=== PATIENT | female | born 1960 | race Caucasian/White ===

== ENCOUNTER 2016-05-23 01:52 | Emergency (ER) | payer BC ==
[2016-05-23] MEDS ORDERED: IBUPROFEN 400 MG TAB PO STA (02:15)
[2016-05-23] MEDS ORDERED: IPRATROPIUM-ALBUTEROL 3 ML NEB INHALATION STA ×3 (02:15→05:03)
--- NOTE | 2016-05-23 02:23 | ED ---
General Adult HPI - General Chief complaint: Fever Stated complaint: fever Time Seen by Provider: 05/23/16 02:06 Source: patient, RN notes reviewed Mode of arrival: wheelchair Limitations: no limitations - History of Present Illness Initial comments: This is a 55-year-old female who presents with diagnosed pneumonia yesterday. Patient states she has had 1 dose of Levaquin so far. Patient states she presents today due to increased fever. Patient has only been taking Tylenol for this. Patient also admits to some increasing shortness of breath. Patient has a history of asthma. Patient has been taking albuterol treatments at home the last one was around 11 PM. Patient had a shot of Depo-Medrol yesterday. Patient states she had a chest x-ray done yesterday at Dr. Alvares's office. Patient states her cough has mostly been dry. Patient also admits to some mild congestion and a mild headache. Patient denies tobacco use. Patient has never been a smoker. Patient denies any sore throat, otalgia, nausea/vomiting/ diarrhea.Patient denies any recent chest pain, abdominal pain, back pain, numbness, tingling, hematuria, or visual changes, or any other complaints. - Related Data Home Medications Medication Instructions Recorded Confirmed Aspirin 81 mg PO DAILY 07/01/14 05/23/16 Beclomethasone Dipropionate [Qvar 1 appful INHALATION BID 07/01/14 05/23/16 80 mcg/puff] Citalopram Hydrobromide 40 mg PO HS 07/01/14 05/23/16 [Citalopram HBr] Hydrochlorothiazide 25 mg PO QAM 07/01/14 05/23/16 Ipratropium/Albuterol Sulfate 2 puff INHALATION DIRECTED PRN 07/01/14 [Combivent Respimat Inhaler] OLANZapine [Olanzapine] 10 mg PO HS 07/01/14 05/23/16 Pravastatin Sodium [Pravastatin 20 mg PO DAILY 07/01/14 05/23/16 Sodium] Allergies Allergy/AdvReac Type Severity Reaction Status Date / Time No Known Allergies Allergy Verified 05/23/16 02:01 Review of Systems ROS Statement: Those systems with pertinent positive or pertinent negative responses have been documented in the HPI. ROS Other: All systems not noted in ROS Statement are negative. Past Medical History Past Medical History: Asthma, Cancer, Hyperlipidemia, Hypertension Additional Past Medical History / Comment(s): RIGHT BREAST AND MOUTH CA, RADIATION BREAST, UMBILICAL HERNIA History of Any Multi-Drug Resistant Organisms: None Reported Past Surgical History: Breast Surgery, Hysterectomy Additional Past Surgical History / Comment(s): RIGHT BREAST LUMPECTOMY Past Anesthesia/Blood Transfusion Reactions: No Reported Reaction Past Psychological History: Depression, Schizophrenia Smoking Status: Never smoker Past Alcohol Use History: Occasional Past Drug Use History: None Reported - Past Family History Father Family Medical History: Cancer Additional Family Medical History / Comment(s): COLON, ESOPHAGEAL General Exam - General Exam Comments Initial Comments: General: The patient is awake and alert, in no distress, and does not appear acutely ill. Eye: Pupils are equal, round and reactive to light, extra-ocular movements are intact. No nystagmus. There is normal conjunctiva bilaterally. No signs of icterus. Ears: TMs pink and pearly with intact cone of light bilaterally. Normal external ear canals Nose: Nasal turbinates pink and moist Mouth and throat: There are moist mucous membranes and no oral lesions. Neck: The neck is supple, there is no tenderness or JVD. Cardiovascular: There is a regular rate and rhythm. No murmur, rub or gallop is appreciated. Respiratory: Lungs with wheezing present throughout and some scattered rhonchi , respirations are non-labored, breath sounds are equal. No stridor, rales. Gastrointestinal: Soft, non-distended, non-tender abdomen without masses or organomegaly noted. There is no rebound or guarding present. Bowel sounds are unremarkable. Musculoskeletal: Normal ROM, no tenderness. Strength 5/5. Sensation intact. radial Pulses equal bilaterally 2+. Neurological: A&O x 3. CN II-XII intact, There are no obvious motor or sensory deficits. Coordination appears grossly intact. Speech is normal. Skin: Skin is warm and dry and no rashes or lesions are noted. Psychiatric: Cooperative, appropriate mood & affect, normal judgment. Limitations: no limitations Course Vital Signs 05/23/16 05/23/16 05/23/16 01:59 02:15 02:30 Temperature 101.7 F H 102 F H Pulse Rate 104 H 94 Respiratory 20 Rate Blood Pressure 141/67 O2 Sat by Pulse 95 Oximetry 05/23/16 05/23/16 05/23/16 02:37 03:10 04:36 Temperature 98.8 F 97.8 F Pulse Rate 94 95 82 Respiratory 18 20 Rate Blood Pressure 145/63 117/55 O2 Sat by Pulse 95 95 Oximetry Medical Decision Making - Medical Decision Making This is a 55-year-old female diagnosed pneumonia. Patient complains increasing shortness breath and fever. On physical exam patient has a fever in the EC. Lungs with wheezing present throughout and some scattered rhonchi, respirations are non-labored, breath sounds are equal. No stridor, rales. Patient was given a DuoNeb treatment in the EC today. A chest x-ray was done and reviewed showing: Patchy infiltrates in the lower lung wilson. Report read by Dr. Fregoso. Patient was feeling relief after her DuoNeb treatment. Patient was given a dose of prednisone in the EC. Patient states she has a prescription for prednisone that she has not started yet. Patient received a second DuoNeb treatment in the EC today before discharge. Patient's oxygen saturation increased on room air and patient states she was feeling much better and she was ready for discharge home. I discussed the importance of finishing her entire course of antibiotics and that she start her oral prednisone given to her by her doctor. Patient is afebrile at time of discharge. I discussed return parameters and continuation of Tylenol and Motrin for fever. I discussed continuation of nebulizer treatments every 4 hours.Discussed that patient should follow up with PCP in one to 2 days or return to the EC for any worsening symptoms or for any further concerns. Patient was receptive to this plan and patient will be discharged home. I discussed this case with attending physician Dr. Stuart who agrees the plan as stated above. - Lab Data Result diagrams: 05/23/16 03:10 05/23/16 03:10 Lab Results 05/23/16 05/23/16 05/23/16 Range/Units 03:10 03:10 03:10 WBC 9.5 (3.8-10.6) k/uL RBC 4.11 (3.80-5.40) m/uL Hgb 12.8 (11.4-16.0) gm/dL Hct 37.3 (34.0-46.0) % MCV 90.7 (80.0-100.0) fL MCH 31.2 (25.0-35.0) pg MCHC 34.4 (31.0-37.0) g/dL RDW 13.1 (11.5-15.5) % Plt Count 175 (150-450) k/uL Neutrophils % 84 % Lymphocytes % 6 % Monocytes % 6 % Eosinophils % 1 % Basophils % 1 % Neutrophils # 7.9 H (1.3-7.7) k/uL Lymphocytes # 0.6 L (1.0-4.8) k/uL Monocytes # 0.6 (0-1.0) k/uL Eosinophils # 0.1 (0-0.7) k/uL Basophils # 0.1 (0-0.2) k/uL Sodium 138 (137-145) mmol/L Potassium 3.5 (3.5-5.1) mmol/L Chloride 102 (98-107) mmol/L Carbon Dioxide 22 (22-30) mmol/L Anion Gap 14 mmol/L BUN 12 (7-17) mg/dL Creatinine 0.80 (0.52-1.04) mg/dL Est GFR (MDRD) Af Amer >60 (>60 ml/min/1.73 sqM) Est GFR (MDRD) Non-Af >60 (>60 ml/min/1.73 sqM) Glucose 175 H (74-99) mg/dL Plasma Lactic Acid Alex 1.5 (0.7-2.0) mmol/L Calcium 9.7 (8.4-10.2) mg/dL Total Bilirubin 0.7 (0.2-1.3) mg/dL AST 87 H (14-36) U/L ALT 99 H (9-52) U/L Alkaline Phosphatase 93 (38-126) U/L Total Protein 7.3 (6.3-8.2) g/dL Albumin 4.4 (3.5-5.0) g/dL Disposition Clinical Impression: Pneumonia Disposition: HOME SELF-CARE Condition: Good Instructions: Community Acquired Pneumonia (ED) Additional Instructions: Please finish her entire course of antibiotics. Please finish her entire course of steroids. Please continued nebulizer treatments every 4 hours. Please continue Tylenol and Motrin for fever. Please return to the EC for any worsening symptoms or for any further concerns. Please follow-up with her primary care physician tomorrow. Referrals: Aguilar Andrew DO [Primary Care Provider] - 1-2 days Time of Disposition: 04:55
[2016-05-23] MEDS ORDERED: SODIUM CHLORIDE 0.9% 500 ML IV ONE (02:57)
[2016-05-23 03:25] LABS: Basophils # (A) 0.1 k/uL (0-0.2); Basophils % (A) 1 %; CH 31.8; CHCM 35.2; Eosinophils # (A) 0.1 k/uL (0-0.7); Eosinophils % (A) 1 %; HCT 37.3 % (34.0-46.0); HDW 2.69; HGB 12.8 gm/dL (11.4-16.0); Luc # (Auto) 0.27; Luc % (Auto) 3; Lymphocytes # (A) 0.6 k/uL (1.0-4.8); Lymphocytes % (A) 6 %; MCH 31.2 pg (25.0-35.0); MCHC 34.4 g/dL (31.0-37.0); MCV 90.7 fL (80.0-100.0); Mean Platelet Volume 7.5; Monocytes # (A) 0.6 k/uL (0-1.0); Monocytes % (A) 6 %; Neutrophils # (A) 7.9 k/uL (1.3-7.7); Neutrophils % (A) 84 %; RBC 4.11 m/uL (3.80-5.40); RDW 13.1 % (11.5-15.5); WBC 9.5 k/uL (3.8-10.6); WBC (Perox) 9.61
--- NOTE | 2016-05-23 03:43 | XR ---
EXAM: XR Chest, 2 Views. CLINICAL HISTORY: Reason: Pain TECHNIQUE: Frontal and lateral views of the chest. COMPARISON: No relevant prior studies available. FINDINGS: Lungs: Patchy infiltrates in the lower lung wilson. Nodular opacity measuring approximately 8 mm in the left mid lung field. Pleural space: Unremarkable. No pneumothorax. Heart: Unremarkable. Mediastinum: Unremarkable. Bones/joints: No acute fracture. Other findings: Two frontal and lateral view of the chest. IMPRESSION: Patchy infiltrates in the lower lung wilson.
[2016-05-23 03:45] LABS: ALT 99 U/L (9-52); AST 87 U/L (14-36); Alkaline Phosphatase 93 U/L (38-126); Anion Gap 14 mmol/L; Blood Urea Nitrogen 12 mg/dL (7-17); Calcium 9.7 mg/dL (8.4-10.2); Carbon Dioxide 22 mmol/L (22-30); Chloride 102 mmol/L (98-107); Glucose 175 mg/dL (74-99); Non-African American GFR(MDRD) >60 (>60 ml/min/1.73 sqM); Potassium 3.5 mmol/L (3.5-5.1); Sodium 138 mmol/L (137-145); Total Bilirubin 0.7 mg/dL (0.2-1.3); Total Protein 7.3 g/dL (6.3-8.2)
[2016-05-23] MEDS ORDERED: predniSONE 20 MG TAB PO STA (03:49)
[2016-05-23 05:27] VITALS: BP 114/57; PULSE 70; RESP 18; TEMP 97.5
== END 2016-05-23 05:33 | disposition home or self-care (01) ==
LOC: EC 01:52
DX: J18.9 Pneumonia, unspecified organism (principal); J45.909 Unspecified asthma, uncomplicated; E78.5 Hyperlipidemia, unspecified; F20.9 Schizophrenia, unspecified; F32.9 Major depressive disorder, single episode, unspecified; Z79.51 Long term (current) use of inhaled steroids; Z79.82 Long term (current) use of aspirin; Z79.899 Other long term (current) drug therapy
CPT/HCPCS: 36415; 94640 ×2; 80053; 83605; 85025; 87040; 71020; 99284; J7512

== ENCOUNTER 2016-05-26 18:40 | Inpatient (IN) | payer BC ==
--- NOTE | 2016-05-26 19:18 | ED ---
General Adult HPI - General Chief complaint: Shortness of Breath Stated complaint: congestion Time Seen by Provider: 05/26/16 18:49 Source: patient, family, RN notes reviewed, old records reviewed Mode of arrival: ambulatory - History of Present Illness Initial comments: Chief complaint and history of present illness this is a 55-year-old female was diagnosed with pneumonia 2 days ago. Patient reports that on Levaquin for 3 days. Still having some difficulty breathing with fever. Patient was at [employer] today she reports she received a shot of steroids and Rocephin. Also repeat chest x-ray that showed pneumonia. This be reviewed. Patient denies pain but she reports continued to have shortness of breath and wheezing. Especially when she lays flat - Related Data Home Medications Medication Instructions Recorded Confirmed Beclomethasone Dipropionate [Qvar 1 puff INHALATION RT-BID 07/01/14 05/26/16 80 mcg/puff] Citalopram Hydrobromide 40 mg PO HS 07/01/14 05/26/16 [Citalopram HBr] Hydrochlorothiazide 25 mg PO QAM 07/01/14 05/26/16 Ipratropium/Albuterol Sulfate 2 puff INHALATION RT-DAILY PRN 07/01/14 05/26/16 [Combivent Respimat Inhaler] OLANZapine [Olanzapine] 10 mg PO HS 07/01/14 05/26/16 Pravastatin Sodium [Pravastatin 20 mg PO DAILY 07/01/14 05/26/16 Sodium] Acetaminophen Tab [Tylenol Tab] 1,000 mg PO Q6HR PRN 05/26/16 05/26/16 Cetirizine HCl [Zyrtec] 10 mg PO DAILY 05/26/16 05/26/16 Ibuprofen [Motrin] 400 mg PO Q6HR PRN 05/26/16 05/26/16 amLODIPine [Norvasc] 5 mg PO DAILY 05/26/16 05/26/16 Allergies Allergy/AdvReac Type Severity Reaction Status Date / Time No Known Allergies Allergy Verified 05/26/16 18:57 Review of Systems ROS Statement: Those systems with pertinent positive or pertinent negative responses have been documented in the HPI. Review of systems. Patient denying any headache or fever at this time no neck pain or sore throat. Denies chest pain with coughing but she does have a dry hack. Feel short of breath states she wheezes significantly she lays flat. No GI/ problems no complaints of any neuro deficits. All systems were otherwise reviewed. Past medical problems significant for asthma, breast cancer right side with surgery. Hyperlipidemia, hypertension. Surgeries as noted above breast, hysterectomy. Family history noncontributory. ALLERGIES none. Nonsmoker nondrinker. ROS Other: All systems not noted in ROS Statement are negative. Past Medical History Past Medical History: Asthma, Cancer, Hyperlipidemia, Hypertension Additional Past Medical History / Comment(s): RIGHT BREAST AND MOUTH CA, RADIATION BREAST, UMBILICAL HERNIA History of Any Multi-Drug Resistant Organisms: None Reported Past Surgical History: Breast Surgery, Hysterectomy Additional Past Surgical History / Comment(s): RIGHT BREAST LUMPECTOMY Past Anesthesia/Blood Transfusion Reactions: No Reported Reaction Past Psychological History: Depression, Schizophrenia Smoking Status: Never smoker Past Alcohol Use History: Occasional Past Drug Use History: None Reported - Past Family History Father Family Medical History: Cancer Additional Family Medical History / Comment(s): COLON, ESOPHAGEAL General Exam - General Exam Comments Initial Comments: General: The patient is awake and alert, complaining of difficulty breathing. Recently diagnosed with pneumonia and started on Levaquin for several days. Not feeling better, increased wheezing. Vital signs show temperature 97.3 pulse 78 her story rate 20 pulse ox 90% room air blood pressure 130/77. Elevated systolic noted patient will be seen by her family doctor. Eye: Pupils are equal, round and reactive to light, extra-ocular movements are intact ; there is normal conjunctiva bilaterally. No signs of icterus. Ears, nose, mouth and throat: There are moist mucous membranes and no oral lesions. Neck: The neck is supple, there is no tenderness , no significant anterior cervical lymphadenopathy. Cardiovascular: There is a regular rate and rhythm. No murmur, rub or gallop is appreciated. Respiratory: Patient complains difficulty breathing, wheezing appreciated. Partial breath sounds. Patient is on updrafts and steroids. With history of pneumonia. No rales appreciated at this time. Gastrointestinal: Soft, non-distended, non-tender abdomen without masses or organomegaly noted. There is no rebound or guarding present. No CVA tenderness. Bowel sounds are unremarkable. Back: There is no tenderness to palpation in the midline. There is no obvious deformity. No rashes noted. Musculoskeletal: Normal ROM, no tenderness, There is no pedal edema. There is no calf tenderness or swelling. Sensation intact. . Neurological: CN II-XII intact, There are no obvious motor or sensory deficits. Coordination appears grossly intact. Speech is normal. No evidence of a neuro deficits. Skin: Skin is warm and dry and no rashes or lesions are noted. Psychiatric: History of bipolar, schizophrenia. No complaints this time. Course Vital Signs 05/26/16 05/26/16 18:41 20:59 Temperature 97.3 F L 99.5 F Pulse Rate 78 73 Respiratory 20 20 Rate Blood Pressure 130/77 136/70 O2 Sat by Pulse 98 97 Oximetry Medical Decision Making - Medical Decision Making Medical decision-making. Patient's white count 6.9 hemoglobin 14 hematocrit of 42. Potassium 4.6 BUN 23 creatinine 0.7 GFR greater than 60. Glucose 243. AST ALT mildly elevated between 70 and 80. 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 Appears though she is not doing well with Levaquin and has now patient. Continues to have fever, short of breath, harsh cough and difficulty breathing. Patient be admitted for failed outpatient treatment of pneumonia, acute exacerbation of asthma. - Lab Data Result diagrams: 05/26/16 19:55 05/26/16 19:55 Lab Results 05/26/16 05/26/16 Range/Units 19:55 19:55 WBC 6.9 (3.8-10.6) k/uL RBC 4.64 (3.80-5.40) m/uL Hgb 14.0 (11.4-16.0) gm/dL Hct 42.6 (34.0-46.0) % MCV 91.8 (80.0-100.0) fL MCH 30.3 (25.0-35.0) pg MCHC 33.0 (31.0-37.0) g/dL RDW 13.1 (11.5-15.5) % Plt Count 197 (150-450) k/uL Neutrophils % 88 % Lymphocytes % 8 % Monocytes % 3 % Eosinophils % 0 % Basophils % 0 % Neutrophils # 6.0 (1.3-7.7) k/uL Lymphocytes # 0.5 L (1.0-4.8) k/uL Monocytes # 0.2 (0-1.0) k/uL Eosinophils # 0.0 (0-0.7) k/uL Basophils # 0.0 (0-0.2) k/uL Sodium 140 (137-145) mmol/L Potassium 4.6 (3.5-5.1) mmol/L Chloride 98 (98-107) mmol/L Carbon Dioxide 24 (22-30) mmol/L Anion Gap 18 mmol/L BUN 23 H (7-17) mg/dL Creatinine 0.70 (0.52-1.04) mg/dL Est GFR (MDRD) Af Amer >60 (>60 ml/min/1.73 sqM) Est GFR (MDRD) Non-Af >60 (>60 ml/min/1.73 sqM) Glucose 243 H (74-99) mg/dL Calcium 9.8 (8.4-10.2) mg/dL Total Bilirubin 0.6 (0.2-1.3) mg/dL AST 70 H (14-36) U/L ALT 81 H (9-52) U/L Alkaline Phosphatase 88 (38-126) U/L Total Protein 8.0 (6.3-8.2) g/dL Albumin 4.6 (3.5-5.0) g/dL Disposition Clinical Impression: Exacerbation of asthma, Failure of outpatient treatment, Pneumonia Disposition: ADMITTED IP TO THIS HOSP Condition: Fair
[2016-05-26] MEDS ORDERED: SODIUM CHLORIDE 0.9% 500 ML IV STA (19:23)
[2016-05-26] MEDS ORDERED: SODIUM CHLORIDE 0.9% 1,000 ML IV STA (19:23)
[2016-05-26 20:21] LABS: Basophils % (A) 0 %; CH 31.9; CHCM 34.9; Eosinophils % (A) 0 %; HCT 42.6 % (34.0-46.0); HDW 2.73; Luc # (Auto) 0.08; Luc % (Auto) 1; Lymphocytes # (A) 0.5 k/uL (1.0-4.8); Lymphocytes % (A) 8 %; MCH 30.3 pg (25.0-35.0); MCV 91.8 fL (80.0-100.0); Mean Platelet Volume 7.1; Monocytes # (A) 0.2 k/uL (0-1.0); Monocytes % (A) 3 %; Neutrophils % (A) 88 %; RBC 4.64 m/uL (3.80-5.40); RDW 13.1 % (11.5-15.5); WBC 6.9 k/uL (3.8-10.6); WBC (Perox) 7.11
[2016-05-26 20:30] LABS: Anion Gap 18 mmol/L; Calcium 9.8 mg/dL (8.4-10.2); Carbon Dioxide 24 mmol/L (22-30); Chloride 98 mmol/L (98-107); Glucose 243 mg/dL (74-99); Non-African American GFR(MDRD) >60 (>60 ml/min/1.73 sqM); Sodium 140 mmol/L (137-145); Total Bilirubin 0.6 mg/dL (0.2-1.3)
[2016-05-26] MEDS ORDERED: AZITHROMYCIN 500 MG in SODIUM CHLORIDE 0.9% 250 ML IVPB STA (20:30)
[2016-05-26 20:34] LABS: AST 70 U/L (14-36); Blood Urea Nitrogen 23 mg/dL (7-17); Potassium 4.6 mmol/L (3.5-5.1)
[2016-05-26 20:35] LABS: ALT 81 U/L (9-52); Alkaline Phosphatase 88 U/L (38-126)
[2016-05-26] MEDS ORDERED: NALOXONE 0.4 MG/ML 1 ML VIAL IV PRN (21:10)
[2016-05-26] MEDS ORDERED: ACETAMINOPHEN TAB 325 MG TAB PO PRN (21:10)
[2016-05-26] MEDS ORDERED: IBUPROFEN 400 MG TAB PO PRN (21:19)
[2016-05-26 23:21] VITALS: BMI 29.0
[2016-05-26] MEDS: methylPREDNISolone SOD SUCCI 125 MG/2 ML VIAL IVP SCH (23:57)
[2016-05-26] MEDS: SODIUM CHLORIDE 0.9% 1,000 ML IV SCH (23:57)
[2016-05-27 06:32] LABS: Glucose,Whole Blood 213 mg/dL (75-99)
[2016-05-27] MEDS: INSULIN LISPRO (humaLOG) 300 UNIT/3 ML VIAL SQ SCH ×4 (07:06→21:43)
[2016-05-27] MEDS: methylPREDNISolone SOD SUCCI 125 MG/2 ML VIAL IVP SCH ×2 (07:42→15:26)
[2016-05-27] MEDS: amLODIPine 5 MG TAB PO SCH (08:54)
[2016-05-27] MEDS: IPRATROPIUM-ALBUTEROL 3 ML NEB INHALATION PRN ×2 (08:56→11:49)
[2016-05-27] MEDS: BUDESONIDE 0.5 MG/2 ML NEBU INHALATION SCH ×2 (08:56→19:42)
[2016-05-27] MEDS ORDERED: HYDROCHLOROTHIAZIDE 25 MG TAB PO SCH (09:00)
[2016-05-27] MEDS ORDERED: LORATADINE 10 MG TAB PO SCH (09:00)
--- NOTE | 2016-05-27 10:23 | P.CNPUL ---
History of Present Illness Consult date: 05/27/16 Reason for consult: pneumonia History of present illness: -year-old female patient on was coming into the hospital because of a left lung pneumonia. The patient has been having increased shortness of breath cough chest tightness wheezing and difficulty breathing since last week. She initially saw Dr. Alvares 5 days ago in the office and she was suspected to have a left lung pneumonia based on that the patient was started on oral Levaquin. The patient following that came into the emergency yet she was discharged home. She then got worse and yesterday she end up at [facility] where she was seen at the urgent care and chest x-ray was done and she was told that her condition has gotten worse and for that reason the patient was sent into the hospital emergency department. A repeat chest x-ray was not done. The patient is currently doing well. Hemodynamically stable. Afebrile. No significant leukocytosis. She was given only Zithromax and she was started on bronchodilators and systemic steroids. She has chronic bronchial asthma. She has had a bout of pneumonia several years back for which she was in the intensive care unit. In terms of her asthma, the patient is on the Qvar as maintenance and Combivent rescue inhaler on an as-needed basis. No hemoptysis. No swelling lower extremities. She is a nonsmoker. 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, hypertension, hyperlipidemia, schizophrenia, depression, multiple drug ALLERGIES , bronchial asthma History of Any Multi-Drug Resistant Organisms: None Reported Past Surgical History: Breast Surgery, Hysterectomy Additional Past Surgical History / Comment(s): RIGHT BREAST LUMPECTOMY Past Anesthesia/Blood Transfusion Reactions: No Reported Reaction Past Psychological History: Depression, Schizophrenia Additional Psychological History / Comment(s): Takes Ziprexa and Celexa Smoking Status: Never smoker Past Alcohol Use History: Occasional Past Drug Use History: None Reported - Past Family History Father Family Medical History: Cancer Additional Family Medical History / Comment(s): COLON, ESOPHAGEAL Medications and Allergies Home Medications Medication Instructions Recorded Confirmed Type Beclomethasone Dipropionate [Qvar 2 puff INHALATION RT-BID 07/01/14 05/26/16 History 80 mcg/puff] Citalopram Hydrobromide 40 mg PO HS 07/01/14 05/26/16 History [Citalopram HBr] Hydrochlorothiazide 25 mg PO QAM 07/01/14 05/26/16 History Ipratropium/Albuterol Sulfate 2 puff INHALATION RT-DAILY PRN 07/01/14 05/26/16 History [Combivent Respimat Inhaler] OLANZapine [Olanzapine] 10 mg PO HS 07/01/14 05/26/16 History Pravastatin Sodium [Pravastatin 20 mg PO DAILY 07/01/14 05/26/16 History Sodium] Acetaminophen Tab [Tylenol Tab] 1,000 mg PO Q6HR PRN 05/26/16 05/26/16 History Cetirizine HCl [Zyrtec] 10 mg PO DAILY 05/26/16 05/26/16 History Ibuprofen [Motrin] 400 mg PO Q6HR PRN 05/26/16 05/26/16 History amLODIPine [Norvasc] 5 mg PO DAILY 05/26/16 05/26/16 History Allergies Allergy/AdvReac Type Severity Reaction Status Date / Time barley Allergy Unknown Verified 05/26/16 23:35 Childhood Beef Containing Products Allergy Swelling Verified 05/26/16 23:33 gluten Allergy Anaphylaxis Verified 05/26/16 23:35 mold Allergy Swelling Verified 05/26/16 23:38 pollen extracts Allergy Swelling Verified 05/26/16 23:36 coconut AdvReac Unknown Unknown Verified 05/26/16 23:32 celery AdvReac Vomiting Verified 05/26/16 23:32 Physical Exam Vitals: Vital Signs Temp Pulse Pulse Resp BP Pulse Ox 05/27/16 09:15 76 05/27/16 08:56 75 97 05/27/16 08:35 97.2 F L 68 20 149/87 94 L 05/27/16 07:00 97 F L 88 16 120/95 95 05/27/16 06:49 16 05/27/16 05:26 97.3 F L 69 16 96 05/27/16 02:36 96.5 F L 67 16 96 05/27/16 00:00 84 20 05/26/16 23:00 98 F 84 20 134/95 93 L 05/26/16 21:55 98 F 84 20 134/95 93 L Intake and Output 05/26/16 05/27/16 05/27/16 22:59 06:59 14:59 Intake Total 300 200 Output Total 500 900 450 Balance -200 -700 -450 Intake: Oral 300 200 Output: Urine 500 900 450 Other: Voiding Method Toilet Weight 99.79 kg Head exam was generally normal. There was no scleral icterus or corneal arcus. Mucous membranes were moist.Neck was supple and without jugular venous distension, thyromegaly, or carotid bruits. Carotids were easily palpable bilaterally. There was no adenopathy. Lung sounds are diminished bilaterally and there is some scattered rhonchi and extremity wheezes and addition to some minimal crackles in the lung bases more so on the left.Cardiac exam revealed the PMI to be normally situated and sized. The rhythm was regular and no extrasystoles were noted during several minutes of auscultation. The first and second heart sounds were normal and physiologic splitting of the second heart sound was noted. There were no murmurs, rubs, clicks, or gallops.Abdominal exam revealed normal bowel sounds. The abdomen was soft, non-tender, and without masses, organomegaly, or appreciable enlargement of the abdominal aorta.Examination of the extremities revealed easily palpable radial, femoral and pedal pulses. There was no cyanosis, clubbing or edema. Results - Laboratory Findings CBC and BMP: 05/26/16 19:55 05/26/16 19:55 Abnormal lab findings: Abnormal Labs 05/27/16 06:30 POC Glucose (mg/dL) 213 H - Diagnostic Findings Chest x-ray: image reviewed Assessment and Plan Plan: Assessment 1 left lung pneumonia treated with Levaquin an outpatient basis with some suboptimal clinical response and for that reason the patient was hospitalized for increased shortness of breath and ongoing symptoms of pneumonia. 2 acute asthma exacerbation secondary to above. The patient has moderate persistent bronchial asthma maintained on Qvar and outpatient basis 3 hypertension 4 hyperlipidemia 5 schizophrenia 6 depression 7 breast cancer with a previous lumpectomy and followed by radiation therapy 8 oral cancer, resected Plan Will need to cover this patient with a combination of Rocephin and Zithromax. I will start the patient on Rocephin 1 g every 24 hours and the first dose will be given as soon as possible. Zithromax may be continued. Try to obtain a sputum Gram stain and culture if possible. Agree on systemic steroids. Cover the patient with sliding scale insulin coverage regarding her steroid-induced hyperglycemia. Cover this patient with heparin subcu for DVT prophylaxis. Repeat a chest x-ray with PA and lateral views as soon as possible and this will be compared to the previous chest x-rays was done earlier. The patient is hemodynamically stable. She is on no oxygen pH is able to speak Full sentences and there is no signs of acute respiratory distress or septicemia at this point. I talked to her. I talked to her mother. We'll continue to follow make further recommendations based on her progress.
[2016-05-27] MEDS: HEPARIN SODIUM,PORCINE 5,000 UNIT/ML 1 ML VIAL SQ SCH ×2 (10:54→15:23)
[2016-05-27] MEDS: SODIUM CHLORIDE 0.9% 1,000 ML IV SCH ×2 (11:26→23:29)
[2016-05-27 12:56] LABS: Glucose,Whole Blood 219 mg/dL (75-99)
--- NOTE | 2016-05-27 15:37 | XR ---
EXAMINATION TYPE: XR chest 2V DATE OF EXAM: 05/27/2016 2:57 PM COMPARISON: Prior chest x-ray 23 May 2016, 26 May 2016 HISTORY: Pneumonia, cough TECHNIQUE: Frontal and lateral views of the chest are obtained. FINDINGS: There is no pleural effusion, or pneumothorax seen. The cardiac silhouette size is stable . Difficult to exclude some minimal posterior increased density at the costophrenic sulcus. The osse ous structures are intact. IMPRESSION: Difficult to exclude some basilar airspace disease versus atelectasis, follow-up as dict ated
[2016-05-27 17:29] LABS: Glucose,Whole Blood 263 mg/dL (75-99)
[2016-05-27] MEDS ORDERED: INSULIN LISPRO (humaLOG) 300 UNIT/3 ML VIAL SQ ONE (18:18)
[2016-05-27] MEDS ORDERED: INSULIN GLARGINE 100 UNIT/ML 10 ML VIAL SQ ONE (18:30)
[2016-05-27] MEDS: ALBUTEROL NEBULIZED 2.5 MG/3 ML INHALATION SCH ×3 (19:36→23:46)
[2016-05-27] MEDS ORDERED: AZITHROMYCIN 500 MG in SODIUM CHLORIDE 0.9% 250 ML IVPB SCH (21:00)
[2016-05-27 21:33] LABS: Glucose,Whole Blood 249 mg/dL (75-99)
[2016-05-27] MEDS: AZITHROMYCIN 500 MG TAB PO SCH (21:35)
[2016-05-27] MEDS: CITALOPRAM HYDROBROMIDE 20 MG TAB PO SCH (21:36)
[2016-05-27] MEDS: LORATADINE-PSEUDOEPH 5-120 MG 1 EACH TAB.ER.12H PO SCH (21:36)
[2016-05-27] MEDS: OLANZapine 10 MG TAB PO SCH (21:37)
[2016-05-28] MEDS: HEPARIN SODIUM,PORCINE 5,000 UNIT/ML 1 ML VIAL SQ SCH ×4 (00:42→23:38)
[2016-05-28] MEDS: methylPREDNISolone SOD SUCCI 125 MG/2 ML VIAL IVP SCH ×3 (00:42→16:39)
[2016-05-28 02:16] LABS: Glucose,Whole Blood 226 mg/dL (75-99)
[2016-05-28] MEDS: INSULIN LISPRO (humaLOG) 300 UNIT/3 ML VIAL SQ SCH ×5 (02:20→21:22)
[2016-05-28] MEDS: ALBUTEROL NEBULIZED 2.5 MG/3 ML INHALATION SCH ×5 (03:26→19:41)
[2016-05-28] MEDS: BUDESONIDE 0.5 MG/2 ML NEBU INHALATION SCH ×2 (07:10→19:41)
[2016-05-28 07:17] LABS: Glucose,Whole Blood 200 mg/dL (75-99)
--- NOTE | 2016-05-28 07:26 | HP ---
DATE OF ADMISSION: 05/26/2016 PRESENTING COMPLAINT: Cough, wheezing. HISTORY OF PRESENTING COMPLAINT: A very pleasant 55-year-old patient of Dr. Andrew who follows with it network architect Dr. Alvares. Patient's chronic stable medical conditions include hypertension, hyperlipidemia, schizophrenia. Patient was at Dr. Alvares's office last , given Levaquin, did not feel better. Patient is having worsening wheezing and gurgling of the chest, cough and green sputum, some fever, decreased appetite, rundown, stuffy in the nose, admitted for the same. REVIEW OF SYSTEMS: CONSTITUTIONAL: Tired. HEENT: As above. RESPIRATORY: As above. CARDIOVASCULAR: None. GASTROINTESTINAL: None. GENITOURINARY: None. MUSCULOSKELETAL: None. DERMATOLOGICAL: None. HEMATOLOGICAL: None. LYMPHATIC: None. PSYCHIATRY: None. NEUROLOGICAL: None. Past history of asthma, hypertension, hyperlipidemia, right breast cancer with lumpectomy, gum cancer with resection, schizophrenia. PAST SURGICAL HISTORY: Right breast lumpectomy, hysterectomy. SOCIAL HISTORY: History of schizophrenia. No smoking. Alcohol, occasionally. Lives with her mother. Family history of colon cancer, esophageal cancer. HOME MEDICATIONS: 1. Qvar 80, two puffs b.i.d. 2. Norvasc 5 mg a day. 3. Pravastatin 20 mg p.o. daily. 4. Olanzapine 10 mg p.o. q.h.s. 5. Combivent 2 puffs daily p.r.n. 6. Motrin 400 mg p.o. q.6 p.r.n. 7. Hydrochlorothiazide 25 mg p.o. daily. 8. Celexa 40 mg p.o. q.h.s. 9. Zyrtec 10 mg p.o. daily. 10. Tylenol 1000 mg q.6 p.r.n. Allergies to BARLEY, BEEF PRODUCTS, GLUTEN, MOLD, POLLEN EXTRACTS, COCONUT, CELERY. On examination, temperature 97.3, pulse 78, respirations 20, blood pressure 130/77, pulse ox 98% on room air. GENERAL APPEARANCE: Average built, sitting up, tired appearing, stuffy sounding. EYES: Pupils equal. Conjunctivae normal. HEENT: External appearance of nose and ears normal. Oral cavity normal. NECK: JVD not raised. Mass not palpable. RESPIRATORY: Effort increased. LUNGS: Diminished breath sounds. Prolonged expiration wheezing, expiratory crackles. CARDIOVASCULAR: First and second sounds normal. No edema. ABDOMEN: Soft, nontender. Liver and spleen not palpable. LYMPHATIC: No lymph nodes palpable in the neck and axillae. PSYCHIATRY: Alert and oriented x3. Mood and affect normal. NEUROLOGICAL: Pupils equal. Cranial nerves grossly intact. Power and sensation grossly intact. Note hair is thin and scant on the scalp. INVESTIGATIONS: White count 6.9, hemoglobin 14. Potassium 4.6. BUN 23, creatinine 0.70. AST 70 ALT 81. Chest x-ray may show some faint infiltrates. ASSESSMENT: 1. Moderate persistent asthma with acute exacerbation probably from underlying acute viral pneumonitis, cannot rule out a bacterial component. 2. Essential hypertension. 3. Hyperlipidemia. 4. Schizophrenia, controlled. PLAN: Patient started on nebulized bronchodilators. Will also add q.4 of albuterol. Patient is put on antibiotics to cover gram-negative organisms. Other home medications resumed. Patient is also added Claritin D. Care was discussed with the patient. Dr. Gutierrez from pulmonary was consulted.
[2016-05-28] MEDS: LORATADINE-PSEUDOEPH 5-120 MG 1 EACH TAB.ER.12H PO SCH ×2 (09:31→21:15)
[2016-05-28] MEDS: amLODIPine 5 MG TAB PO SCH (09:31)
[2016-05-28 12:02] LABS: Glucose,Whole Blood 248 mg/dL (75-99)
[2016-05-28] MEDS: SODIUM CHLORIDE 0.9% 1,000 ML IV SCH (13:32)
--- NOTE | 2016-05-28 15:23 | P.PN ---
Subjective Principal diagnosis: Pneumonia of the left lung 55-year-old female patient on was coming into the hospital because of a left lung pneumonia. The patient has been having increased shortness of breath cough chest tightness wheezing and difficulty breathing since last week. She initially saw Dr. Alvares 5 days ago in the office and she was suspected to have a left lung pneumonia based on that the patient was started on oral Levaquin. The patient following that came into the emergency yet she was discharged home. She then got worse and yesterday she end up at [facility] where she was seen at the urgent care and chest x-ray was done and she was told that her condition has gotten worse and for that reason the patient was sent into the hospital emergency department. A repeat chest x-ray was not done. The patient is currently doing well. Hemodynamically stable. Afebrile. No significant leukocytosis. She was given only Zithromax and she was started on bronchodilators and systemic steroids. She has chronic bronchial asthma. She has had a bout of pneumonia several years back for which she was in the intensive care unit. In terms of her asthma, the patient is on the Qvar as maintenance and Combivent rescue inhaler on an as-needed basis. No hemoptysis. No swelling lower extremities. She is a nonsmoker. The patient is seen again today 05/28/2016 in follow-up on the regular medical floor. She is awake and alert in no acute distress. She is breathing better today as compared to yesterday but not quite back to her baseline. She still has a loose nonproductive cough. No chills or night sweats. He is maintaining O2 saturations in the mid 90s on room air. Currently afebrile. She's been maintained on IV Solu-Medrol, bronchodilators, ceftriaxone and azithromycin. Objective - Vital Signs Vital signs: Vital Signs Temp 97.3 F L 05/28/16 12:05 Pulse 109 H 05/28/16 12:05 Resp 20 05/28/16 12:05 BP 143/90 05/28/16 12:05 Pulse Ox 95 05/28/16 12:05 Intake & Output 05/27/16 05/28/16 05/28/16 18:59 06:59 18:59 Intake Total 300 300 Output Total 2850 Balance -2850 300 300 Intake: Oral 300 300 Output: Urine 2850 Other: Voiding Method Toilet # Voids 1 1 - Exam GENERAL EXAM: Alert, fairly comfortable in no apparent distress. HEAD: Normocephalic. EYES: Normal reaction of pupils, equal size. NOSE: Clear with pink turbinates. THROAT: No erythema or exudates. NECK: No masses, no JVD. CHEST: No chest wall deformity. LUNGS: Equal air entry with few scattered rhonchi and wheeze. CVS: S1 and S2 normal with no audible murmurs, regular rhythm. ABDOMEN: No hepatosplenomegaly, normal bowel sounds, no guarding or rigidity. SPINE: No scoliosis or deformity SKIN: No rashes CENTRAL NERVOUS SYSTEM: No focal deficits, tone is normal in all 4 extremities. Extremities: There is no significant peripheral edema. No clubbing, no cyanosis. Peripheral pulses are intact. - Labs CBC & Chem 7: 05/26/16 19:55 05/26/16 19:55 Labs: Abnormal Lab Results - Last 24 Hours (Table) 05/27/16 05/27/16 05/28/16 Range/Units 17:27 21:29 02:14 POC Glucose (mg/dL) 263 H 249 H 226 H (75-99) mg/dL 05/28/16 05/28/16 Range/Units 07:14 12:00 POC Glucose (mg/dL) 200 H 248 H (75-99) mg/dL Assessment and Plan Plan: Assessment 1 left lung pneumonia treated with Levaquin an outpatient basis with some suboptimal clinical response and for that reason the patient was hospitalized for increased shortness of breath and ongoing symptoms of pneumonia. 2 acute asthma exacerbation secondary to above. The patient has moderate persistent bronchial asthma maintained on Qvar and outpatient basis 3 hypertension 4 hyperlipidemia 5 schizophrenia 6 depression 7 breast cancer with a previous lumpectomy and followed by radiation therapy 8 oral cancer, resected Plan we'll and The patient was seen and evaluated by Dr. Gutierrez. She is improved today as compared to yesterday but still quite rhonchorous and wheezy. We'll continue her current treatment another 24 hours. She is being covered for insulin scale regarding steroid-induced hyperglycemia. We will increase her activity as tolerated. We'll continue to follow make further recommendations based on her clinical status. Her mother is at the bedside and aware of the treatment plan.
[2016-05-28] MEDS: ALBUTEROL NEB (CONC) 2.5 MG/0.5 ML INHALATION SCH ×2 (15:41→19:41)
[2016-05-28 18:22] LABS: Glucose,Whole Blood 264 mg/dL (75-99)
[2016-05-28] MEDS ORDERED: INSULIN LISPRO (humaLOG) 300 UNIT/3 ML VIAL SQ ONE (18:37)
[2016-05-28 21:13] LABS: Glucose,Whole Blood 258 mg/dL (75-99)
[2016-05-28] MEDS: CITALOPRAM HYDROBROMIDE 20 MG TAB PO SCH (21:14)
[2016-05-28] MEDS: AZITHROMYCIN 500 MG TAB PO SCH (21:14)
[2016-05-28] MEDS: OLANZapine 10 MG TAB PO SCH (21:15)
--- NOTE | 2016-05-28 22:48 | PN ---
DATE OF SERVICE: 05/28/2016 PRESENTING COMPLAINT: Cough, wheezing. INTERVAL HISTORY: This very pleasant lady presented with ( ) asthma and possibly acute viral duodenitis. The patient a little bit congested, less cough, wheezing, did walk in the hallway. Eating a bit better. Review of systems done for constitutional, cardiovascular, cardiovascular, GI, pulmonary; relevant findings as above. Current medications include: ( ) and IV steroids, Solu-Medrol 60 q4. On examination, temperature 98, pulse 114, respiratory rate 20, blood pressure 130/74, pulse ox 93% on room air. GENERAL APPEARANCE: Propped up in bed. Tired. A bit less stuffy sounding. EYES: Pupils equal. Conjunctivae normal. NECK: JVD not raised. Mass not palpable. RESPIRATORY: Effort increased. LUNGS: Slightly improved air entry. Decreased wheezing. CARDIOVASCULAR: First and second sounds normal. No edema. ABDOMEN: Soft, nontender. Liver and spleen not palpable. PSYCHIATRY: Alert and oriented x3. Mood and affect normal. INVESTIGATIONS: Accu-Cheks are noted. ASSESSMENT: 1. Moderate persistent asthma with acute exacerbation probably from underlying acute viral pneumonitis cannot rule out a bacterial component. 2. Essential hypertension. 3. Hyperlipidemia. 4. Schizophrenia, controlled. 5. Hyperglycemia, steroids. PLAN: Will cut back on the Solu-Medrol to 40 q.8. Continue with the current medication and treatment plan. Care was discussed with the patient.
[2016-05-28] MEDS: methylPREDNISolone SOD SUCCI 40 MG/ML 1 ML VIAL IV SCH (23:38)
[2016-05-29] MEDS: SODIUM CHLORIDE 0.9% 1,000 ML IV SCH ×2 (00:04→19:36)
[2016-05-29 02:00] LABS: Glucose,Whole Blood 173 mg/dL (75-99)
[2016-05-29] MEDS: INSULIN LISPRO (humaLOG) 300 UNIT/3 ML VIAL SQ SCH ×5 (02:02→21:25)
[2016-05-29] MEDS: ALBUTEROL NEBULIZED 2.5 MG/3 ML INHALATION SCH ×6 (02:13→21:53)
[2016-05-29] MEDS: ALBUTEROL NEB (CONC) 2.5 MG/0.5 ML INHALATION SCH ×6 (02:13→21:53)
[2016-05-29] MEDS: methylPREDNISolone SOD SUCCI 40 MG/ML 1 ML VIAL IV SCH ×3 (06:29→21:27)
[2016-05-29 07:20] LABS: Glucose,Whole Blood 189 mg/dL (75-99)
[2016-05-29] MEDS: amLODIPine 5 MG TAB PO SCH (08:14)
[2016-05-29] MEDS: LORATADINE-PSEUDOEPH 5-120 MG 1 EACH TAB.ER.12H PO SCH ×2 (08:14→21:27)
[2016-05-29] MEDS: BUDESONIDE 0.5 MG/2 ML NEBU INHALATION SCH ×2 (09:25→21:53)
[2016-05-29] MEDS: HEPARIN SODIUM,PORCINE 5,000 UNIT/ML 1 ML VIAL SQ SCH ×2 (10:01→16:28)
[2016-05-29 12:32] LABS: Glucose,Whole Blood 279 mg/dL (75-99)
--- NOTE | 2016-05-29 16:46 | P.PN ---
Subjective Principal diagnosis: Pneumonia of the left lung 55-year-old female patient on was coming into the hospital because of a left lung pneumonia. The patient has been having increased shortness of breath cough chest tightness wheezing and difficulty breathing since last week. She initially saw Dr. Alvares 5 days ago in the office and she was suspected to have a left lung pneumonia based on that the patient was started on oral Levaquin. The patient following that came into the emergency yet she was discharged home. She then got worse and yesterday she end up at [facility] where she was seen at the urgent care and chest x-ray was done and she was told that her condition has gotten worse and for that reason the patient was sent into the hospital emergency department. A repeat chest x-ray was not done. The patient is currently doing well. Hemodynamically stable. Afebrile. No significant leukocytosis. She was given only Zithromax and she was started on bronchodilators and systemic steroids. She has chronic bronchial asthma. She has had a bout of pneumonia several years back for which she was in the intensive care unit. In terms of her asthma, the patient is on the Qvar as maintenance and Combivent rescue inhaler on an as-needed basis. No hemoptysis. No swelling lower extremities. She is a nonsmoker. The patient is seen again today 05/28/2016 in follow-up on the regular medical floor. She is awake and alert in no acute distress. She is breathing better today as compared to yesterday but not quite back to her baseline. She still has a loose nonproductive cough. No chills or night sweats. He is maintaining O2 saturations in the mid 90s on room air. Currently afebrile. She's been maintained on IV Solu-Medrol, bronchodilators, ceftriaxone and azithromycin. The patient is seen again today 05/29/2016 in follow-up on the regular medical floor. She is doing slightly better today as compared to yesterday. She still has a bit of a cough and congestion. Not quite back to her baseline. She is maintaining good O2 saturations in the 90s on room air. Afebrile. Objective - Vital Signs Vital signs: Vital Signs Temp 97.3 F L 05/29/16 15:00 Pulse 101 H 05/29/16 15:00 Resp 18 03/15/17 15:00 BP 151/80 05/29/16 15:00 Pulse Ox 93 L 05/29/16 15:00 Intake & Output 05/28/16 05/29/16 05/29/16 18:59 06:59 18:59 Intake Total 300 800 Balance 300 800 Intake: Oral 300 800 Other: Voiding Method Toilet Toilet # Voids 2 1 1 - Exam GENERAL EXAM: Alert, fairly comfortable in no apparent distress. HEAD: Normocephalic. EYES: Normal reaction of pupils, equal size. NOSE: Clear with pink turbinates. THROAT: No erythema or exudates. NECK: No masses, no JVD. CHEST: No chest wall deformity. LUNGS: Equal air entry with few scattered rhonchi and wheeze. CVS: S1 and S2 normal with no audible murmurs, regular rhythm. ABDOMEN: No hepatosplenomegaly, normal bowel sounds, no guarding or rigidity. SPINE: No scoliosis or deformity SKIN: No rashes CENTRAL NERVOUS SYSTEM: No focal deficits, tone is normal in all 4 extremities. Extremities: There is no significant peripheral edema. No clubbing, no cyanosis. Peripheral pulses are intact. - Labs CBC & Chem 7: 05/26/16 19:55 05/26/16 19:55 Labs: Abnormal Lab Results - Last 24 Hours (Table) 05/28/16 05/28/16 05/29/16 Range/Units 18:09 21:12 01:58 POC Glucose (mg/dL) 264 H 258 H 173 H (75-99) mg/dL 05/29/16 05/29/16 Range/Units 07:14 12:27 POC Glucose (mg/dL) 189 H 279 H (75-99) mg/dL Assessment and Plan Plan: Assessment 1 left lung pneumonia treated with Levaquin an outpatient basis with some suboptimal clinical response and for that reason the patient was hospitalized for increased shortness of breath and ongoing symptoms of pneumonia. 2 acute asthma exacerbation secondary to above. The patient has moderate persistent bronchial asthma maintained on Qvar and outpatient basis 3 hypertension 4 hyperlipidemia 5 schizophrenia 6 depression 7 breast cancer with a previous lumpectomy and followed by radiation therapy 8 oral cancer, resected Plan we'll and The patient was seen and evaluated by Dr. Gutierrez. She continues to gradually improve. We'll continue with her current medications. We will increase her activity as tolerated. Plan is for discharge in a.m.
[2016-05-29 16:58] LABS: Glucose,Whole Blood 219 mg/dL (75-99)
[2016-05-29 21:09] LABS: Glucose,Whole Blood 252 mg/dL (75-99)
[2016-05-29] MEDS: CITALOPRAM HYDROBROMIDE 20 MG TAB PO SCH (21:27)
[2016-05-29] MEDS: AZITHROMYCIN 500 MG TAB PO SCH (21:27)
[2016-05-29] MEDS: OLANZapine 10 MG TAB PO SCH (21:28)
--- NOTE | 2016-05-29 22:55 | PN ---
DATE OF SERVICE: 05/29/2016 PRESENTING COMPLAINT: Cough. Wheezing. INTERVAL HISTORY: This pleasant lady presented with asthma exacerbation with acute viral pneumonitis, the patient still a little bit congested, wheezing, a shade better than before, tolerating a diet, not been out of bed. Review of systems done for constitutional, cardiovascular, GI, pulmonary; relevant findings as above. Current medications are reviewed and include IV ceftriaxone and IV Solu-Medrol. On examination, temperature 97.3, pulse 101, respiration 18, blood pressure 150/80, pulse ox 93% on room air. GENERAL APPEARANCE: Sitting up in bed tired appearing. EYES: Pupils equal. Conjunctivae normal. NECK: JVD not raised. Mass not palpable. RESPIRATORY: Effort increased. LUNGS: Improved air entry, some wheezing, mild expiratory crackles. CARDIOVASCULAR: First and second sounds normal. No edema. ABDOMEN: Soft, nontender. Liver and spleen not palpable. PSYCHIATRY: Alert and oriented x3. Mood and affect normal. INVESTIGATIONS: Accu-Cheks are noted. ASSESSMENT: 1. Moderate persistent asthma with acute exacerbation probably from underlying acute viral pneumonitis, cannot rule out a bacterial component. 2. Essential hypertension. 3. Hyperlipidemia. 4. Schizophrenia, controlled. 5. Hyperglycemia secondary to steroids. PLAN: Continue current medication and treatment plan. Care was discussed the patient. D/C IV fluids.
[2016-05-30] MEDS: HEPARIN SODIUM,PORCINE 5,000 UNIT/ML 1 ML VIAL SQ SCH ×2 (00:30→08:57)
[2016-05-30] MEDS: ALBUTEROL NEBULIZED 2.5 MG/3 ML INHALATION SCH ×4 (01:47→14:05)
[2016-05-30 02:20] LABS: Glucose,Whole Blood 226 mg/dL (75-99)
[2016-05-30] MEDS: INSULIN LISPRO (humaLOG) 300 UNIT/3 ML VIAL SQ SCH ×3 (02:27→12:10)
[2016-05-30 04:21] VITALS: RESP 20
[2016-05-30] MEDS: ALBUTEROL NEB (CONC) 2.5 MG/0.5 ML INHALATION SCH ×3 (05:28→14:05)
[2016-05-30] MEDS: methylPREDNISolone SOD SUCCI 40 MG/ML 1 ML VIAL IV SCH (06:47)
[2016-05-30 07:11] LABS: Basophils # (A) 0.3 k/uL (0-0.2); Basophils % (A) 2 %; CH 31.9; Eosinophils % (A) 0 %; HDW 2.62; HGB 13.7 gm/dL (11.4-16.0); Immature Gran Flag Marked; Luc # (Auto) 0.19; Luc % (Auto) 1; Lymphocytes # (A) 1.4 k/uL (1.0-4.8); Lymphocytes % (A) 7 %; MCH 31.6 pg (25.0-35.0); MCHC 33.5 g/dL (31.0-37.0); MCV 94.3 fL (80.0-100.0); Mean Platelet Volume 7.5; Monocytes % (A) 5 %; Neutrophils # (A) 16.6 k/uL (1.3-7.7); Neutrophils % (A) 85 %; RBC 4.35 m/uL (3.80-5.40); WBC 19.5 k/uL (3.8-10.6); WBC (Perox) 20.25
[2016-05-30 07:20] LABS: Anion Gap 12 mmol/L; Blood Urea Nitrogen 18 mg/dL (7-17); Calcium 9.3 mg/dL (8.4-10.2); Carbon Dioxide 25 mmol/L (22-30); Chloride 103 mmol/L (98-107); Glucose 155 mg/dL (74-99); Non-African American GFR(MDRD) >60 (>60 ml/min/1.73 sqM); Potassium 4.1 mmol/L (3.5-5.1); Sodium 140 mmol/L (137-145)
[2016-05-30 07:21] LABS: Glucose,Whole Blood 149 mg/dL (75-99)
[2016-05-30 08:17] LABS: Manual Review Performed
[2016-05-30] MEDS: LORATADINE-PSEUDOEPH 5-120 MG 1 EACH TAB.ER.12H PO SCH (08:57)
[2016-05-30] MEDS: amLODIPine 5 MG TAB PO SCH (08:57)
[2016-05-30] MEDS: BUDESONIDE 0.5 MG/2 ML NEBU INHALATION SCH (09:24)
[2016-05-30 11:55] LABS: Glucose,Whole Blood 216 mg/dL (75-99)
[2016-05-30 13:43] VITALS: BP 145/85; TEMP 97.6
[2016-05-30 14:09] VITALS: PULSE 92
--- NOTE | 2016-05-30 14:55 | P.PN ---
Subjective 55-year-old female patient on was coming into the hospital because of a left lung pneumonia. The patient has been having increased shortness of breath cough chest tightness wheezing and difficulty breathing since last week. She initially saw Dr. Alvares 5 days ago in the office and she was suspected to have a left lung pneumonia based on that the patient was started on oral Levaquin. The patient following that came into the emergency yet she was discharged home. She then got worse and yesterday she end up at [facility] where she was seen at the urgent care and chest x-ray was done and she was told that her condition has gotten worse and for that reason the patient was sent into the hospital emergency department. A repeat chest x-ray was not done. The patient is currently doing well. Hemodynamically stable. Afebrile. No significant leukocytosis. She was given only Zithromax and she was started on bronchodilators and systemic steroids. She has chronic bronchial asthma. She has had a bout of pneumonia several years back for which she was in the intensive care unit. In terms of her asthma, the patient is on the Qvar as maintenance and Combivent rescue inhaler on an as-needed basis. No hemoptysis. No swelling lower extremities. She is a nonsmoker. The patient is seen again today 05/28/2016 in follow-up on the regular medical floor. She is awake and alert in no acute distress. She is breathing better today as compared to yesterday but not quite back to her baseline. She still has a loose nonproductive cough. No chills or night sweats. He is maintaining O2 saturations in the mid 90s on room air. Currently afebrile. She's been maintained on IV Solu-Medrol, bronchodilators, ceftriaxone and azithromycin. The patient is seen again today 05/29/2016 in follow-up on the regular medical floor. She is doing slightly better today as compared to yesterday. She still has a bit of a cough and congestion. Not quite back to her baseline. She is maintaining good O2 saturations in the 90s on room air. Afebrile. She is seen again today 05/30/2016 in follow-up. She is awake and alert in no acute distress. She is currently sitting up in the chair at the bedside. She is maintaining good O2 saturations in the 90s on room air. She denies any worsening shortness of breath. She remains with a loose nonproductive cough. No chills or night sweats. Objective - Vital Signs Vital signs: Vital Signs Temp 97.6 F 05/30/16 11:46 Pulse 92 05/30/16 14:18 Resp 20 05/30/16 11:46 BP 145/85 05/30/16 11:46 Pulse Ox 95 05/30/16 11:46 Intake & Output 05/29/16 05/30/16 05/30/16 18:59 06:59 18:59 Intake Total 200 Balance 200 Intake: Oral 200 Other: Voiding Method Toilet # Voids 1 1 1 - Exam GENERAL EXAM: Alert, fairly comfortable in no apparent distress. HEAD: Normocephalic. EYES: Normal reaction of pupils, equal size. NOSE: Clear with pink turbinates. THROAT: No erythema or exudates. NECK: No masses, no JVD. CHEST: No chest wall deformity. LUNGS: Equal air entry with few scattered rhonchi and wheeze. CVS: S1 and S2 normal with no audible murmurs, regular rhythm. ABDOMEN: No hepatosplenomegaly, normal bowel sounds, no guarding or rigidity. SPINE: No scoliosis or deformity SKIN: No rashes CENTRAL NERVOUS SYSTEM: No focal deficits, tone is normal in all 4 extremities. Extremities: There is no significant peripheral edema. No clubbing, no cyanosis. Peripheral pulses are intact. - Labs CBC & Chem 7: 05/30/16 06:50 05/30/16 06:50 Labs: Abnormal Lab Results - Last 24 Hours (Table) 05/29/16 05/29/16 05/30/16 Range/Units 16:56 21:05 02:18 WBC (3.8-10.6) k/uL Neutrophils # (1.3-7.7) k/uL Basophils # (0-0.2) k/uL BUN (7-17) mg/dL Glucose (74-99) mg/dL POC Glucose (mg/dL) 219 H 252 H 226 H (75-99) mg/dL 05/30/16 05/30/16 05/30/16 Range/Units 06:50 06:50 07:19 WBC 19.5 H (3.8-10.6) k/uL Neutrophils # 16.6 H (1.3-7.7) k/uL Basophils # 0.3 H (0-0.2) k/uL BUN 18 H (7-17) mg/dL Glucose 155 H (74-99) mg/dL POC Glucose (mg/dL) 149 H (75-99) mg/dL 05/30/16 Range/Units 11:53 WBC (3.8-10.6) k/uL Neutrophils # (1.3-7.7) k/uL Basophils # (0-0.2) k/uL BUN (7-17) mg/dL Glucose (74-99) mg/dL POC Glucose (mg/dL) 216 H (75-99) mg/dL Assessment and Plan Plan: Assessment 1 left lung pneumonia treated with Levaquin an outpatient basis with some suboptimal clinical response and for that reason the patient was hospitalized for increased shortness of breath and ongoing symptoms of pneumonia. 2 acute asthma exacerbation secondary to above. The patient has moderate persistent bronchial asthma maintained on Qvar and outpatient basis 3 hypertension 4 hyperlipidemia 5 schizophrenia 6 depression 7 breast cancer with a previous lumpectomy and followed by radiation therapy 8 oral cancer, resected Plan we'll and The patient was seen and evaluated by Dr. Gutierrez. She is cleared for discharge from the pulmonary standpoint. She'll complete her course of antibiotics. She'll be discharged on a prednisone taper. She can be seen in our office in 1 week's time. Her family will be encouraged to call sooner with any recurrence of symptoms or other questions or concerns. We'll continue with her current medications. We will increase her activity as tolerated. Plan is for discharge in a.m.
[2016-05-31] MEDS ORDERED: predniSONE 20 MG TAB PO SCH (09:00)
--- NOTE | 2016-06-01 13:27 | DS ---
DATE OF ADMISSION: 05/26/2016 DATE OF DISCHARGE: 05/30/2016 FINAL DIAGNOSES: 1. Persistent asthma with acute exacerbation probably from underlying acute viral pneumonitis. 2. Essential hypertension. 3. Hyperlipidemia. 4. Schizophrenia, controlled. 5. Hyperglycemia secondary to steroids. CONSULTATION: Dr. Gutierrez from Pulmonary. HOSPITAL COURSE: This patient presented with acute asthma exacerbation, with also upper respiratory tract suspected to be viral pneumonitis. Antibiotics were given to cover any bacterial component. Patient is doing better at the time of discharge. On examination, lungs improved air entry. CARDIOVASCULAR: First and second sounds normal. MEDICATIONS: 1. QVAR 80 2 puffs b.i.d. 2. Celexa 40 mg q.h.s. 3. Hydrochlorothiazide 25 mg a day. 4. Olanzapine 10 mg p.o. q.h.s. 5. Pravastatin 20 mg p.o. daily. 6. Motrin 400 mg q.6. 7. Norvasc 5 mg a day. 8. Ceftin 500 mg p.o. b.i.d. 9. Combivent 2 puffs q.i.d. 10. Claritin-D 1 tablet p.o. q.12, 10 tablets. 11. Prednisone taper. Additionally, on examination, lungs decreased breath sounds. Very minimal wheezing. Comfortable sitting up. Follow with Dr. Andrew in 3 days. Follow up with head holder 06/14/16.
== END 2016-05-30 15:14 | disposition home or self-care (01) | DRG 194 ==
LOC: EC 18:40 → 6PED 21:12
PROVIDERS: ADMIT Hospitalist; ATTEND Hospitalist
DX: J12.9 Viral pneumonia, unspecified (principal); J45.41 Moderate persistent asthma with (acute) exacerbation; I10 Essential (primary) hypertension; E78.5 Hyperlipidemia, unspecified; F20.9 Schizophrenia, unspecified; R73.9 Hyperglycemia, unspecified; T38.0X5A Adverse effect of glucocorticoids and synthetic analogues, initial encounter; K42.9 Umbilical hernia without obstruction or gangrene; F32.9 Major depressive disorder, single episode, unspecified; Z85.819 Personal history of malignant neoplasm of unspecified site of lip, oral cavity, and pharynx; Z85.3 Personal history of malignant neoplasm of breast; Z79.899 Other long term (current) drug therapy; Z80.0 Family history of malignant neoplasm of digestive organs; Z87.01 Personal history of pneumonia (recurrent); Z92.3 Personal history of irradiation; Z91.02 Food additives allergy status; Z91.018 Allergy to other foods; Z88.8 Allergy status to other drugs, medicaments and biological substances; Z91.048 Other nonmedicinal substance allergy status; Z90.710 Acquired absence of both cervix and uterus; Z90.11 Acquired absence of right breast and nipple
CPT/HCPCS: 36415; 71020; 80048; 80053; 85025; 87040; 94640; 94760; 96361; 96365; 96366; 99285

== ENCOUNTER 2017-05-05 19:44 | Inpatient (IN) | payer BC ==
[2017-05-05] MEDS ORDERED: ACETAMINOPHEN TAB 500 MG TAB PO STA (20:53)
[2017-05-05] MEDS ORDERED: IPRATROPIUM-ALBUTEROL 3 ML NEB INHALATION STA (20:53)
--- NOTE | 2017-05-05 21:04 | ED ---
URI HPI - General Chief Complaint: Upper Respiratory Infection Stated Complaint: Cough Time Seen by Provider: 05/05/17 20:46 Source: patient, RN notes reviewed Mode of arrival: ambulatory Limitations: no limitations - History of Present Illness Initial Comments: This a 56-year-old female presents emergency Department chief complaint of cough congestion over the last 4-5 days. Patient states she was seen at [facility] on the weekend was given doxycycline told her that she had acute bronchitis. She states symptoms are worsening along with her fever. She does have a history of recurrent pneumonia. Patient is a nonsmoker no history of smoking. 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 angel. Patient denies any ear pain, sore throat which she does not to Srinath nasal congestion. Patient denies any nausea and diarrhea constipation. No sick contacts. - Related Data Home Medications Medication Instructions Recorded Confirmed Beclomethasone Dipropionate [Qvar 2 puff INHALATION RT-BID 07/01/14 05/05/17 80 mcg/puff] Citalopram Hydrobromide 40 mg PO HS 07/01/14 05/05/17 [Citalopram HBr] Hydrochlorothiazide 25 mg PO QAM 07/01/14 05/05/17 OLANZapine [Olanzapine] 10 mg PO HS 07/01/14 05/05/17 amLODIPine [Norvasc] 5 mg PO DAILY 05/26/16 05/05/17 Cetirizine HCl [Zyrtec] 10 mg PO DAILY 05/05/17 05/05/17 Fenofibrate [Lofibra] 160 mg PO DAILY 05/05/17 05/05/17 Ipratropium/Albuterol Sulfate 2 puff INHALATION RT-QID 05/05/17 05/05/17 [Combivent Respimat Inhaler] metFORMIN HCL [Glucophage] 500 mg PO BID 05/05/17 05/05/17 Allergies Allergy/AdvReac Type Severity Reaction Status Date / Time barley Allergy Unknown Verified 05/05/17 20:46 Childhood Beef Containing Products Allergy Swelling Verified 05/05/17 20:46 gluten Allergy Anaphylaxis Verified 05/05/17 20:46 mold Allergy Swelling Verified 05/05/17 20:46 pollen extracts Allergy Swelling Verified 05/05/17 20:46 coconut AdvReac Unknown Unknown Verified 05/05/17 20:46 celery AdvReac Vomiting Verified 05/05/17 20:46 Review of Systems ROS Statement: Those systems with pertinent positive or pertinent negative responses have been documented in the HPI. ROS Other: All systems not noted in ROS Statement are negative. 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, hypertension, hyperlipidemia, schizophrenia, depression, multiple drug ALLERGIES , bronchial asthma History of Any Multi-Drug Resistant Organisms: None Reported Past Surgical History: Breast Surgery, Hysterectomy Additional Past Surgical History / Comment(s): RIGHT BREAST LUMPECTOMY Past Anesthesia/Blood Transfusion Reactions: No Reported Reaction Past Psychological History: Anxiety, Depression, Schizophrenia Smoking Status: Never smoker Past Alcohol Use History: Occasional Past Drug Use History: None Reported - Past Family History Father Family Medical History: Cancer Additional Family Medical History / Comment(s): COLON, ESOPHAGEAL General Exam Limitations: no limitations General appearance: alert, in no apparent distress Head exam: Present: atraumatic, normocephalic, normal inspection Eye exam: Present: normal appearance, PERRL, EOMI. Absent: scleral icterus, conjunctival injection, periorbital swelling ENT exam: Present: normal exam, normal oropharynx, mucous membranes moist, TM's normal bilaterally Neck exam: Present: normal inspection, full ROM. Absent: tenderness, meningismus, lymphadenopathy Respiratory exam: Present: normal lung sounds bilaterally. Absent: respiratory distress, wheezes, rales, rhonchi, stridor Cardiovascular Exam: Present: regular rate, normal rhythm, normal heart sounds. Absent: systolic murmur, diastolic murmur, rubs, gallop, clicks Back exam: Absent: CVA tenderness (R), CVA tenderness (L) Skin exam: Present: warm, dry, intact, normal color. Absent: rash Course Vital Signs 05/05/17 05/05/17 05/05/17 20:02 21:10 21:23 Temperature 99.8 F H Pulse Rate 99 80 82 Respiratory 18 Rate Blood Pressure 135/65 O2 Sat by Pulse 94 L Oximetry Medical Decision Making - Lab Data Result diagrams: 05/05/17 21:26 05/05/17 21:26 Lab Results 05/05/17 05/05/17 05/05/17 Range/Units 20:05 21:26 21:26 WBC 11.9 H (3.8-10.6) k/uL RBC 4.31 (3.80-5.40) m/uL Hgb 13.1 (11.4-16.0) gm/dL Hct 38.2 (34.0-46.0) % MCV 88.6 (80.0-100.0) fL MCH 30.5 (25.0-35.0) pg MCHC 34.4 (31.0-37.0) g/dL RDW 12.5 (11.5-15.5) % Plt Count 316 (150-450) k/uL Neutrophils % 80 % Lymphocytes % 13 % Monocytes % 5 % Eosinophils % 1 % Basophils % 0 % Neutrophils # 9.5 H (1.3-7.7) k/uL Lymphocytes # 1.6 (1.0-4.8) k/uL Monocytes # 0.6 (0-1.0) k/uL Eosinophils # 0.1 (0-0.7) k/uL Basophils # 0.1 (0-0.2) k/uL Sodium 140 (137-145) mmol/L Potassium 3.6 (3.5-5.1) mmol/L Chloride 102 (98-107) mmol/L Carbon Dioxide 26 (22-30) mmol/L Anion Gap 12 mmol/L BUN 25 H (7-17) mg/dL Creatinine 0.90 (0.52-1.04) mg/dL Est GFR (MDRD) Af Amer >60 (>60 ml/min/1.73 sqM) Est GFR (MDRD) Non-Af >60 (>60 ml/min/1.73 sqM) Glucose 101 H (74-99) mg/dL Plasma Lactic Acid Alex (0.7-2.0) mmol/L Calcium 10.5 H (8.4-10.2) mg/dL Total Bilirubin 0.3 (0.2-1.3) mg/dL AST 24 (14-36) U/L ALT 27 (9-52) U/L Alkaline Phosphatase 65 (38-126) U/L Total Protein 7.1 (6.3-8.2) g/dL Albumin 4.6 (3.5-5.0) g/dL Influenza Type A RNA Not Detected (Not Detectd) Influenza Type B (PCR) Not Detected (Not Detectd) 05/05/17 Range/Units 21:26 WBC (3.8-10.6) k/uL RBC (3.80-5.40) m/uL Hgb (11.4-16.0) gm/dL Hct (34.0-46.0) % MCV (80.0-100.0) fL MCH (25.0-35.0) pg MCHC (31.0-37.0) g/dL RDW (11.5-15.5) % Plt Count (150-450) k/uL Neutrophils % % Lymphocytes % % Monocytes % % Eosinophils % % Basophils % % Neutrophils # (1.3-7.7) k/uL Lymphocytes # (1.0-4.8) k/uL Monocytes # (0-1.0) k/uL Eosinophils # (0-0.7) k/uL Basophils # (0-0.2) k/uL Sodium (137-145) mmol/L Potassium (3.5-5.1) mmol/L Chloride (98-107) mmol/L Carbon Dioxide (22-30) mmol/L Anion Gap mmol/L BUN (7-17) mg/dL Creatinine (0.52-1.04) mg/dL Est GFR (MDRD) Af Amer (>60 ml/min/1.73 sqM) Est GFR (MDRD) Non-Af (>60 ml/min/1.73 sqM) Glucose (74-99) mg/dL Plasma Lactic Acid Alex 1.9 (0.7-2.0) mmol/L Calcium (8.4-10.2) mg/dL Total Bilirubin (0.2-1.3) mg/dL AST (14-36) U/L ALT (9-52) U/L Alkaline Phosphatase (38-126) U/L Total Protein (6.3-8.2) g/dL Albumin (3.5-5.0) g/dL Influenza Type A RNA (Not Detectd) Influenza Type B (PCR) (Not Detectd) Disposition Clinical Impression: Pneumonia, Failure of outpatient treatment, Exacerbation of asthma Disposition: ADMITTED IP TO THIS HOSP Condition: Stable Referrals: Aguilar Andrew DO [Primary Care Provider] - 1-2 days
[2017-05-05 21:36] LABS: Basophils # (A) 0.1 k/uL (0-0.2); Basophils % (A) 0 %; Eosinophils # (A) 0.1 k/uL (0-0.7); Eosinophils % (A) 1 %; HCT 38.2 % (34.0-46.0); HGB 13.1 gm/dL (11.4-16.0); Lymphocytes # (A) 1.6 k/uL (1.0-4.8); Lymphocytes % (A) 13 %; MCH 30.5 pg (25.0-35.0); MCHC 34.4 g/dL (31.0-37.0); MCV 88.6 fL (80.0-100.0); Mean Platelet Volume 6.8; Monocytes # (A) 0.6 k/uL (0-1.0); Monocytes % (A) 5 %; Neutrophils # (A) 9.5 k/uL (1.3-7.7); Neutrophils % (A) 80 %; Platelet Count 316 k/uL (150-450); RBC 4.31 m/uL (3.80-5.40); RDW 12.5 % (11.5-15.5); WBC 11.9 k/uL (3.8-10.6)
[2017-05-05 21:46] LABS: ALT 27 U/L (9-52); AST 24 U/L (14-36); Albumin 4.6 g/dL (3.5-5.0); Alkaline Phosphatase 65 U/L (38-126); Anion Gap 12 mmol/L; Blood Urea Nitrogen 25 mg/dL (7-17); Calcium 10.5 mg/dL (8.4-10.2); Carbon Dioxide 26 mmol/L (22-30); Chloride 102 mmol/L (98-107); Glucose 101 mg/dL (74-99); Potassium 3.6 mmol/L (3.5-5.1); Sodium 140 mmol/L (137-145); Total Bilirubin 0.3 mg/dL (0.2-1.3); Total Protein 7.1 g/dL (6.3-8.2)
--- NOTE | 2017-05-05 21:56 | XR ---
EXAMINATION TYPE: XR chest 2V DATE OF EXAM: 05/05/2017 COMPARISON: 06/14/2016 HISTORY: Follow-up pneumonia TECHNIQUE: Frontal and lateral views of the chest are obtained. FINDINGS: There is coarse interstitial density in the mid and lower lung wilson. There is linear den sity at the left lung base. There is no heart failure. Heart size is normal. There is no pleural effu srikanth. IMPRESSION: Interstitial infiltrates and atelectasis at the lung bases appears the same or slightly worse than last exam. Normal heart.
[2017-05-05] MEDS ORDERED: cefTRIAXone IN SWFI 1,000 MG/10 ML SYRINGE IVP STA (22:06)
[2017-05-05] MEDS ORDERED: methylPREDNISolone SOD SUCCI 125 MG/2 ML VIAL IV STA (22:06)
[2017-05-05] MEDS ORDERED: IPRATROPIUM-ALBUTEROL 3 ML NEB INHALATION PRN (22:07)
[2017-05-05] MEDS ORDERED: AZITHROMYCIN 500 MG in SODIUM CHLORIDE 0.9% 250 ML IVPB STA (22:07)
[2017-05-05] MEDS ORDERED: PNEUMONIA PROTOCOL UTILIZED 1 EACH MISC PO PRN (22:07)
--- NOTE | 2017-05-06 08:45 | XR ---
EXAMINATION TYPE: XR chest 2V DATE OF EXAM: 05/06/2017 COMPARISON: Prior chest x-ray 05/05/2017 HISTORY: Pneumonia TECHNIQUE: Frontal and lateral views of the chest are obtained. FINDINGS: Some minimal patchy density present in the lingula, right lung base. No pneumothorax or si zable effusion. Cardiomediastinal silhouette, pulmonary vascularity and amaury not significantly change d. IMPRESSION: Findings are similar to prior exam. Correlate for pneumonia versus atelectasis. Addition al follow-up recommended.
[2017-05-06] MEDS: cefTRIAXone IN SWFI 1,000 MG/10 ML SYRINGE IVP SCH ×2 (09:41→22:18)
[2017-05-06] MEDS ORDERED: TEMAZEPAM 15 MG CAP PO PRN (11:00)
[2017-05-06] MEDS ORDERED: ALPRAZolam 0.25 MG TAB PO PRN (11:00)
[2017-05-06] MEDS ORDERED: HYDROcodone/APAP 5-325MG 1 EACH TAB PO PRN (11:00)
[2017-05-06] MEDS: amLODIPine 5 MG TAB PO SCH (12:19)
[2017-05-06] MEDS: HYDROCHLOROTHIAZIDE 25 MG TAB PO SCH (12:20)
[2017-05-06] MEDS: HEPARIN SODIUM,PORCINE 5,000 UNIT/ML 1 ML VIAL SQ SCH ×2 (12:20→22:19)
[2017-05-06] MEDS: LORATADINE 10 MG TAB PO SCH (12:20)
[2017-05-06] MEDS: FENOFIBRATE 160 MG TAB PO SCH (12:20)
[2017-05-06] MEDS: methylPREDNISolone SOD SUCCI 125 MG/2 ML VIAL IV SCH ×2 (12:21→17:24)
[2017-05-06] MEDS: metFORMIN 500 MG TAB PO SCH ×2 (12:21→22:19)
[2017-05-06 12:42] LABS: Glucose,Whole Blood 121 mg/dL (75-99)
[2017-05-06] MEDS: INSULIN ASPART 100 UNIT/ML 1 ML 10 ML VIAL SQ SCH ×3 (12:42→22:20)
[2017-05-06] MEDS: IPRATROPIUM-ALBUTEROL 3 ML NEB INHALATION SCH ×3 (12:59→19:49)
[2017-05-06] MEDS: ACETAMINOPHEN TAB 325 MG TAB PO PRN (13:21)
[2017-05-06] MEDS: guaiFENesin 600 MG TABLET.ER PO SCH ×2 (13:22→22:19)
--- NOTE | 2017-05-06 14:55 | P.CNPUL ---
History of Present Illness Consult date: 05/06/17 Requesting physician: Kulwinder Tan Reason for consult: dyspnea, cough, abnormal CXR/CT Chief complaint: Head and chest congestion, cough, fever, body aches, headache History of present illness: Yanira is a 56-year-old female patient of Dr. Andrew who presented to the emergency department on 05/05/2017 at 1944 with complaints of increasing head and chest congestion, nonproductive congested cough, fever, body aches, headache. Her symptoms started last . On Friday she went to the urgent care at [facility], where she was prescribed doxycycline for acute bronchitis. Over the weekend her symptoms became progressively worse, she developed a fever. Patient had past history of pneumonias. She is a lifetime nonsmoker. She sees Dr. Alvares in the office for her history of mild intermittent asthma. Patient is on a combination of Combivent resume at inhaler , Qvar, and albuterol nebulized treatments on the regular basis. Her other medical history includes GERD/reflux, diverticulitis, hypertension, hypercholesterolemia, and genital herpes simplex. Patient also has history of right breast cancer status post lumpectomy, oral cancer status post resection, schizophrenia, depression, anxiety. Chest x-ray on 05/05/2017 showed interstitial infiltrates and atelectasis at the lung bases. Follow-up exam from 05/06/2017 showed findings similar to the prior exam from 05/05/2017. Patient did have a low-grade fever on presentation of 99.8F. Lab work showed WBC of 11.9, hemoglobin 13.1, electrolytes are within normal limits, B1 is 25, creatinine 0.90. Influenza screen was negative. Patient was started on Zithromax and Rocephin, nebulized treatments, IV Solu-Medrol and was admitted for further management. Review of Systems All systems: negative Constitutional: Denies chills, Denies fever Eyes: denies blurred vision, denies pain Ears, nose, mouth and throat: Denies headache, Denies sore throat Cardiovascular: Reports dyspnea on exertion, Denies chest pain, Denies shortness of breath Respiratory: Reports congestion, Reports dyspnea, Reports respiratory infections , Denies cough Gastrointestinal: Denies abdominal pain, Denies diarrhea, Denies nausea, Denies vomiting Genitourinary: Denies dysuria, Denies hematuria Musculoskeletal: Denies myalgias Integumentary: Denies pruritus, Denies rash Neurological: Denies numbness, Denies weakness Psychiatric: Denies anxiety, Denies depression Endocrine: Denies fatigue, Denies weight change 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, hypertension, hyperlipidemia, schizophrenia, depression, multiple drug ALLERGIES , bronchial asthma, prediabetes History of Any Multi-Drug Resistant Organisms: None Reported Past Surgical History: Breast Surgery, Hysterectomy Additional Past Surgical History / Comment(s): RIGHT BREAST LUMPECTOMY Past Anesthesia/Blood Transfusion Reactions: No Reported Reaction Past Psychological History: Anxiety, Depression, Schizophrenia Additional Psychological History / Comment(s): Takes Ziprexa and Celexa Smoking Status: Never smoker Past Alcohol Use History: Occasional Past Drug Use History: None Reported - Past Family History Father Family Medical History: Cancer Additional Family Medical History / Comment(s): COLON, ESOPHAGEAL Medications and Allergies Home Medications Medication Instructions Recorded Confirmed Type Beclomethasone Dipropionate [Qvar 2 puff INHALATION RT-BID 07/01/14 05/05/17 History 80 mcg/puff] Citalopram Hydrobromide 40 mg PO HS 07/01/14 05/05/17 History [Citalopram HBr] Hydrochlorothiazide 25 mg PO QAM 07/01/14 05/05/17 History OLANZapine [Olanzapine] 10 mg PO HS 07/01/14 05/05/17 History amLODIPine [Norvasc] 5 mg PO DAILY 05/26/16 05/05/17 History Cetirizine HCl [Zyrtec] 10 mg PO DAILY 05/05/17 05/05/17 History Fenofibrate [Lofibra] 160 mg PO DAILY 05/05/17 05/05/17 History Ipratropium/Albuterol Sulfate 2 puff INHALATION RT-QID 05/05/17 05/05/17 History [Combivent Respimat Inhaler] metFORMIN HCL [Glucophage] 500 mg PO BID 05/05/17 05/05/17 History Allergies Allergy/AdvReac Type Severity Reaction Status Date / Time barley Allergy Unknown Verified 05/05/17 20:46 Childhood Beef Containing Products Allergy Swelling Verified 05/05/17 20:46 gluten Allergy Anaphylaxis Verified 05/05/17 20:46 mold Allergy Swelling Verified 05/05/17 20:46 pollen extracts Allergy Swelling Verified 05/05/17 20:46 coconut AdvReac Unknown Unknown Verified 05/05/17 20:46 celery AdvReac Vomiting Verified 05/05/17 20:46 Physical Exam Vitals: Vital Signs Temp Pulse Pulse Resp BP BP Pulse Ox 05/06/17 11:10 96 05/06/17 10:58 84 05/06/17 07:00 98.3 F 85 18 136/75 96 05/05/17 23:40 98.2 F 80 16 144/70 94 L 05/05/17 22:26 99.3 F 82 20 142/67 95 05/05/17 22:07 94 L 05/05/17 21:23 82 05/05/17 21:10 80 05/05/17 20:40 22 05/05/17 20:02 99.8 F H 99 18 135/65 94 L Intake and Output 05/05/17 05/06/17 05/06/17 22:59 06:59 14:59 Intake Total 1050 Balance 1050 Intake: Amount of Fluid Infused ( 200 ml) Intake, IV Titration 250 Amount Azithromycin 500 mg In 250 Sodium Chloride 0.9% 250 ml @ 125 mls/hr IVPB [facility] Rx#:[id number] Oral 600 Other: Voiding Method Toilet Toilet Weight 94.801 kg GENERAL EXAM: Alert, pleasant, 56-year-old white female, who appears fatigued but in no apparent distress. HEAD: Normocephalic/atraumatic. EYES: Normal reaction of pupils, equal size. Conjunctiva pink, sclera white. NOSE: Clear with pink turbinates. THROAT: No erythema or exudates. NECK: No masses, no JVD, no thyroid enlargement, no adenopathy. CHEST: No chest wall deformity. Symmetrical expansion. LUNGS: Diffuse scattered rhonchi throughout, and bronchial sounds over right lower lobe noted. CVS: Regular rate and rhythm, normal S1 and S2, no gallops, no murmurs, no rubs ABDOMEN: Soft, nontender. No hepatosplenomegaly, normal bowel sounds, no guarding or rigidity. EXTREMITIES: No clubbing, no edema, no cyanosis, 2+ pulses and upper and lower extremities. MUSCULOSKELETAL: Muscle strength and tone normal. SPINE: No scoliosis or deformity SKIN: No rashes CENTRAL NERVOUS SYSTEM: Alert and oriented -3. No focal deficits, tone is normal in all 4 extremities. PSYCHIATRIC: Alert and oriented -3. Appropriate affect. Intact judgment and insight. Results - Laboratory Findings CBC and BMP: 05/05/17 21:26 05/05/17 21:26 Abnormal lab findings: Abnormal Labs 05/05/17 05/05/17 05/06/17 21:26 21:26 12:40 WBC 11.9 H Neutrophils # 9.5 H BUN 25 H Glucose 101 H POC Glucose (mg/dL) 121 H Calcium 10.5 H - Diagnostic Findings Chest x-ray: report reviewed Assessment and Plan Plan: Assessment: #1. Acute dyspnea, chest congestion, febrile illness isn't on presentation. Chest x-ray showed patchy density present in the lingula and right lung base, cannot rule out community acquired pneumonia, with failed outpatient treatment #2. Acute exacerbation of mild intermittent asthma secondary to above #3. Hypertension, hyperlipidemia #4. Anxiety, depression, schizophrenia #5. History of right breast cancer with the previous lumpectomy followed by radiation therapy #6. Oral cancer, resected #7. Lifetime nonsmoker #8. History of hysterectomy Plan: Continue Zithromax and Rocephin, continue DuoNeb nebulized treatments, Symbicort , IV steroids. Sputum specimen for culture. We will add Mucinex. I performed a history & physical examination of the patient and discussed their management with my nurse practitioner, Sheela Jones. I reviewed the nurse practitioner's note and agree with the documented findings and plan of care. Lung sounds are positive for diffuse rhonchi, bronchial sounds over right lower lobe The findings and the impression was discussed with the patient. I attest to the documentation by the nurse practitioner. Time with Patient: Greater than 30
[2017-05-06 17:21] LABS: Glucose,Whole Blood 194 mg/dL (75-99)
[2017-05-06] MEDS: IBUPROFEN 400 MG TAB PO PRN ×2 (17:22→22:11)
--- NOTE | 2017-05-06 19:45 | HP ---
HISTORY AND PHYSICAL DATE OF SERVICE: 05/06/2017 CHIEF COMPLAINTS: Cough and sputum. HISTORY OF PRESENT ILLNESS: This 56-year-old woman with a past medical history of multiple medical problems including asthma, hypertension, hyperlipidemia, history of right breast cancer with lumpectomy being followed by Dr. Andrew in the outpatient setting, was complaining of shortness of breath with cough for the past several days at least 4 to 5 days. The patient is on doxycycline, but because of lack of improvement the patient came to [facility] and admitted for further evaluation and treatment. The patient was seen by Dr. Alvares during the hospitalization. A chest x-ray was done on admission and repeat x-ray was also done which showed right lower lobe pneumonia is considered. There is no history of fever, rigors or chills. No history of headache, loss of consciousness or seizures. Influenza testing is negative. PAST MEDICAL HISTORY: Asthma, hyperlipidemia, hypertension, history of cancer, anxiety and depression. MEDICATIONS: Prior to admission include home medications are: 1. Metformin 500 mg p.o. b.i.d. 2. Lofibra 160 mg p.o. daily. 3. Combivent 2 puffs q.i.d. 4. Hydrochlorothiazide 25 mg q.a.m. 5. Celexa 40 mg q.h.s. 6. 10 mg daily. 7. QVAR 80 mcg 2 puffs b.i.d. 8. Norvasc 5 mg p.o. daily. 9. Olanzapine 10 mg q.h.s. ALLERGIES: BARLEY, BEEF CONTAINING PRODUCTS, GLUTEN, MOLD, POLLEN EXTRACT, COCONUT AND CELERY. FAMILY HISTORY: History of cancer, colon cancer, esophageal cancer in the family. SOCIAL HISTORY: No history of smoking. No history of alcohol intake. REVIEW OF SYSTEMS: ENT: No diminished vision. No diminished hearing. CARDIOVASCULAR: No angina or palpitations. Respiratory: As mentioned earlier. GI no nausea or vomiting. no dysuria or hematuria. Central nervous system: No numbness or weakness. ALLERGY/IMMUNOLOGY: No asthma or hayfever. Musculoskeletal: As mentioned earlier. HEMATOLOGY/ONCOLOGY: No history of anemia. Endocrine: No history of diabetes or hypothyroidism. CONSTITUTIONAL: As mentioned earlier. Dermatology: Negative. Rheumatology: Negative. Psychiatric: As mentioned earlier. PHYSICAL EXAMINATION: Alert and oriented times three. Pulse is 85, blood pressure 130/70, respiration 18, temperature 98.3, pulse ox 98% on 2 L. HEENT is conjunctivae normal. Oral mucosa moist. Neck is no jugular venous distention. No carotid bruit. No lymph node enlargement. Cardiovascular system: S1, S2 muffled. No S3, no S4. Respiratory : Breath sounds diminished in the bases. Bilateral scattered rhonchi and crackles. ABDOMEN: Soft, nontender. Legs are no edema. No swelling. Nervous system: Higher functions as mentioned earlier. Moves all four limbs. No focal deficits. Lymphatics: No lymph nodes palpable in the neck, axillae or groin. Skin no ulcer, rash or bleeding. LABS: WBC 11.9. Otherwise influenza negative. Glucose noted. ASSESSMENT: 1. Acute right lower lobe pneumonia with bronchial asthma acute exacerbation. 2. Chronic intermittent bronchial asthma. 3. Increased WBC. 4. History of hypertension. 5. History hyperlipidemia. 6. History of right breast cancer with previous lumpectomy. 7. History anxiety, depression, schizophrenia. RECOMMENDATIONS AND DISCUSSION: In this 56-year-old woman who presented with multiple complex medical issues, we will monitor the patient closely, continue the current medications, symptomatic treatment, management and we will initiate bronchodilators and broad-spectrum IV antibiotics. Pulmonary consultation. IV steroids. Monitor blood sugars closely. Repeat labs. Guarded prognosis because of multiple complex medical issues. Further recommendations to follow. Prognosis guarded. MMODL / IJN: [id number] / DANTE
[2017-05-06] MEDS: SYMBICORT 160-4.5 MCG INHALER INHALATION SCH (19:49)
[2017-05-06 20:36] LABS: Hemoglobin A1C 6.2 % (4.0-6.0)
[2017-05-06] MEDS ORDERED: AZITHROMYCIN 500 MG in SODIUM CHLORIDE 0.9% 250 ML IVPB SCH (21:00)
[2017-05-06] MEDS ORDERED: CITALOPRAM HYDROBROMIDE 20 MG TAB PO SCH (21:00)
[2017-05-06 21:13] LABS: Glucose,Whole Blood 205 mg/dL (75-99)
[2017-05-06] MEDS: OLANZapine 10 MG TAB PO SCH ×2 (22:18→22:26)
[2017-05-07] MEDS: methylPREDNISolone SOD SUCCI 125 MG/2 ML VIAL IV SCH ×4 (00:29→17:30)
[2017-05-07 07:18] LABS: Glucose,Whole Blood 152 mg/dL (75-99)
[2017-05-07] MEDS ORDERED: PANTOPRAZOLE 40 MG TABLET PO SCH (07:30)
[2017-05-07 07:34] VITALS: RESP 16; TEMP 97.9
[2017-05-07] MEDS: cefTRIAXone IN SWFI 1,000 MG/10 ML SYRINGE IVP SCH (07:40)
[2017-05-07] MEDS: INSULIN ASPART 100 UNIT/ML 1 ML 10 ML VIAL SQ SCH ×3 (07:40→17:29)
[2017-05-07] MEDS: HYDROCHLOROTHIAZIDE 25 MG TAB PO SCH (07:41)
[2017-05-07] MEDS: amLODIPine 5 MG TAB PO SCH (07:41)
[2017-05-07] MEDS: guaiFENesin 600 MG TABLET.ER PO SCH (07:41)
[2017-05-07] MEDS: LORATADINE 10 MG TAB PO SCH (07:41)
[2017-05-07] MEDS: FENOFIBRATE 160 MG TAB PO SCH (07:41)
[2017-05-07] MEDS: HEPARIN SODIUM,PORCINE 5,000 UNIT/ML 1 ML VIAL SQ SCH (07:41)
[2017-05-07] MEDS: metFORMIN 500 MG TAB PO SCH (07:42)
[2017-05-07] MEDS: IPRATROPIUM-ALBUTEROL 3 ML NEB INHALATION SCH ×4 (08:14→19:41)
[2017-05-07] MEDS: SYMBICORT 160-4.5 MCG INHALER INHALATION SCH ×2 (08:14→19:41)
[2017-05-07] MEDS: IBUPROFEN 400 MG TAB PO PRN (09:24)
[2017-05-07 11:52] LABS: Glucose,Whole Blood 146 mg/dL (75-99)
[2017-05-07] MEDS: ACETAMINOPHEN TAB 325 MG TAB PO PRN (12:31)
[2017-05-07 15:25] VITALS: BP 140/69
[2017-05-07 15:28] VITALS: PULSE 88
--- NOTE | 2017-05-07 15:32 | P.PN ---
Subjective Progress Note Date: 05/07/17 Principal diagnosis: Acute dyspnea, chest congestion, febrile illness due to possible community- acquired pneumonia with failed outpatient treatment Yanira is a 56-year-old female patient of Dr. Andrew who presented to the emergency department on 05/05/2017 at 1944 with complaints of increasing head and chest congestion, nonproductive congested cough, fever, body aches, headache. Her symptoms started last . On Friday she went to the urgent care at [facility], where she was prescribed doxycycline for acute bronchitis. Over the weekend her symptoms became progressively worse, she developed a fever. Patient had past history of pneumonias. She is a lifetime nonsmoker. She sees Dr. Alvares in the office for her history of mild intermittent asthma. Patient is on a combination of Combivent resume at inhaler , Qvar, and albuterol nebulized treatments on the regular basis. Her other medical history includes GERD/reflux, diverticulitis, hypertension, hypercholesterolemia, and genital herpes simplex. Patient also has history of right breast cancer status post lumpectomy, oral cancer status post resection, schizophrenia, depression, anxiety. Chest x-ray on 05/05/2017 showed interstitial infiltrates and atelectasis at the lung bases. Follow-up exam from 05/06/2017 showed findings similar to the prior exam from 05/05/2017. Patient did have a low-grade fever on presentation of 99.8F. Lab work showed WBC of 11.9, hemoglobin 13.1, electrolytes are within normal limits, B1 is 25, creatinine 0.90. Influenza screen was negative. Patient was started on Zithromax and Rocephin, nebulized treatments, IV Solu-Medrol and was admitted for further management. On 05/07/2017 patient seen in follow-up. Doing better today, still has a persistent congestive cough, unable to bring up much phlegm. Lung sounds positive for scattered crackles, no rhonchi or wheezes were noted. No chills, no night sweats, no fevers. She is on room air, vital signs are stable. Urine and blood culture remain negative. Continues on Zithromax and Rocephin, nebulized treatments, Symbicort. Objective - Vital Signs Vital signs: Vital Signs Temp 97.9 F 05/07/17 07:00 Pulse 88 05/07/17 11:58 Resp 16 05/07/17 07:00 BP 153/84 05/07/17 07:00 Pulse Ox 93 L 05/07/17 07:00 Intake & Output 05/06/17 05/07/17 05/07/17 18:59 06:59 18:59 Other: Voiding Method Toilet Toilet Toilet # Voids 3 2 # Bowel Movements 1 - Exam GENERAL EXAM: Alert, pleasant, 56-year-old white female, who appears fatigued but in no apparent distress. HEAD: Normocephalic/atraumatic. EYES: Normal reaction of pupils, equal size. Conjunctiva pink, sclera white. NOSE: Clear with pink turbinates. THROAT: No erythema or exudates. NECK: No masses, no JVD, no thyroid enlargement, no adenopathy. CHEST: No chest wall deformity. Symmetrical expansion. LUNGS: Diffuse rales, and bronchial sounds over right lower lobe noted. CVS: Regular rate and rhythm, normal S1 and S2, no gallops, no murmurs, no rubs ABDOMEN: Soft, nontender. No hepatosplenomegaly, normal bowel sounds, no guarding or rigidity. EXTREMITIES: No clubbing, no edema, no cyanosis, 2+ pulses and upper and lower extremities. MUSCULOSKELETAL: Muscle strength and tone normal. SPINE: No scoliosis or deformity SKIN: No rashes CENTRAL NERVOUS SYSTEM: Alert and oriented -3. No focal deficits, tone is normal in all 4 extremities. PSYCHIATRIC: Alert and oriented -3. Appropriate affect. Intact judgment and insight. - Labs CBC & Chem 7: 05/05/17 21:26 05/05/17 21:26 Labs: Abnormal Lab Results - Last 24 Hours (Table) 05/05/17 05/06/17 05/06/17 Range/Units 21:26 12:40 17:20 POC Glucose (mg/dL) 121 H 194 H (75-99) mg/dL Hemoglobin A1c 6.2 H (4.0-6.0) % 05/06/17 05/07/17 05/07/17 Range/Units 21:09 06:57 11:48 POC Glucose (mg/dL) 205 H 152 H 146 H (75-99) mg/dL Hemoglobin A1c (4.0-6.0) % Microbiology - Last 24 Hours (Table) 05/06/17 22:13 Urine Culture - Preliminary Urine,Clean Catch 05/05/17 21:26 Blood Culture - Preliminary Blood No Growth after 24 hours Assessment and Plan Plan: Assessment: #1. Acute dyspnea, chest congestion, febrile illness isn't on presentation. Chest x-ray showed patchy density present in the lingula and right lung base, cannot rule out community acquired pneumonia, with failed outpatient treatment #2. Acute exacerbation of mild intermittent asthma secondary to above #3. Hypertension, hyperlipidemia #4. Anxiety, depression, schizophrenia #5. History of right breast cancer with the previous lumpectomy followed by radiation therapy #6. Oral cancer, resected #7. Lifetime nonsmoker #8. History of hysterectomy Plan: Patient is improving, still has the congested persistent nonproductive cough. Remains afebrile, no diaphoresis, chest pain or hemoptysis. Increase activity today, continue Zithromax and Rocephin, continue DuoNeb nebulized treatments, Symbicort, IV steroids. Sputum specimen for culture. We will add Mucinex. I performed a history & physical examination of the patient and discussed their management with my nurse practitioner, Sheela Jones. I reviewed the nurse practitioner's note and agree with the documented findings and plan of care. Lung sounds are positive for diffuse scattered rales, bronchial sounds over right lower lobe The findings and the impression was discussed with the patient. I attest to the documentation by the nurse practitioner. Time with Patient: Less than 30
[2017-05-07 17:14] LABS: Glucose,Whole Blood 199 mg/dL (75-99)
--- NOTE | 2017-05-07 19:55 | DS ---
DISCHARGE SUMMARY DATE OF SERVICE: 05/07/2017 FINAL DIAGNOSES: 1. Acute right lower lobe pneumonia with bronchial asthma acute exacerbation, possibly community acquired. 2. Chronic intermittent bronchial asthma. 3. Increased WBC. 4. History of hypertension. 5. History of hyperlipidemia. 6. History of right breast cancer with previous lumpectomy. 7. History of anxiety, depression, and schizophrenia. DISCHARGE DISPOSITION: The patient will be discharged in stable condition with guarded prognosis. Dr. Alvares cleared the patient for discharge. HISTORY OF PRESENT ILLNESS: This is a 56-year-old woman with a past history of multiple medical problems as mentioned admitted with cough and sputum, which is pneumonia. Patient treated with IV antibiotics. Patient improved significantly. On exam, vitals are stable. Cardiovascular: S1, S2. Respiratory: A few scattered rhonchi. Abdomen: Soft. Nervous System: No focal deficits. DISCHARGED ADVICE: 1. Diet is cardiac. 2. Activity limited until followup. 3. Follow up with Dr. Andrew in 2-3 days. 4. Follow up with Dr. Alvares as advised. MEDICATIONS: 1. Tylenol 650 q.6h p.r.n. 2. Norvasc 5 mg p.o. daily. 3. QVAR 2 puffs p.o. daily. 4. Ceftin 500 mg p.o. b.i.d. for 5 days. 5. Zyrtec 10 mg p.o. daily. 6. Celexa 40 mg q.h.s. 7. Lofibra 160 mg p.o. daily. 8. Mucinex 1200 mg p.o. b.i.d. 9. Hydrochlorothiazide 25 mg q.a.m. 10.Motrin 400 mg q.6h p.r.n. 11.Albuterol and Combivent inhaler 2 puffs q.i.d. and p.r.n. 12.Glucophage 500 mg p.o. b.i.d. 13.Olanzapine 10 mg q.h.s. 14.Protonix 40 mg daily b.i.d. 15.Prednisone taper the will be 40 mg daily for 3 days, 30 for 3 days, 20 for 3 days, 10 for 3 days and then stop. The patient will be discharged in stable condition with guarded prognosis. MMODL / IJN: [id number] /
== END 2017-05-07 20:29 | disposition still patient (30) | DRG 194 ==
LOC: EC 19:44 → 5MS5E 22:04
PROVIDERS: ADMIT Hospitalist; ATTEND Hospitalist
DX: J18.9 Pneumonia, unspecified organism (principal); J45.21 Mild intermittent asthma with (acute) exacerbation; F20.9 Schizophrenia, unspecified; E78.00 Pure hypercholesterolemia, unspecified; I10 Essential (primary) hypertension; F41.9 Anxiety disorder, unspecified; F32.9 Major depressive disorder, single episode, unspecified; K21.9 Gastro-esophageal reflux disease without esophagitis; Z80.0 Family history of malignant neoplasm of digestive organs; Z91.018 Allergy to other foods; Z79.84 Long term (current) use of oral hypoglycemic drugs; Z90.710 Acquired absence of both cervix and uterus; Z79.899 Other long term (current) drug therapy; Z92.3 Personal history of irradiation; Z86.19 Personal history of other infectious and parasitic diseases; Z87.01 Personal history of pneumonia (recurrent); Z85.3 Personal history of malignant neoplasm of breast; Z85.818 Personal history of malignant neoplasm of other sites of lip, oral cavity, and pharynx
CPT/HCPCS: 36415; 71046; 80053; 83036; 83605; 85025; 87040; 87086; 87502; 94640; 96365; 96375; 99284

== ENCOUNTER → 2018-01-20 | Outpatient (CLI) | payer BC ==
--- NOTE | 2018-01-21 11:36 | MM ---
Reason for exam: screening (asymptomatic). Last mammogram was performed 1 year ago. History: Patient is postmenopausal, has history of breast cancer at age 40, has history of other cancer at age 40, and is nulliparous. Excisional biopsy of the right breast, June 10, 2000. Stereotactic core biopsy of the right breast, May 13, 2000. Core biopsy of the right breast. Lumpectomy of the right breast. Radiation therapy of the right breast. Took hormonal contraceptives for 3 years. Physical Findings: A clinical breast exam by your physician is recommended on an annual basis and results should be correlated with mammographic findings. MG Screening Mammo w CAD Bilateral CC and MLO view(s) were taken. Prior study comparison: January 10, 2017, bilateral MG screening mammo w CAD. January 02, 2016, bilateral MG screening mammo w CAD. The breast tissue is heterogeneously dense. This may lower the sensitivity of mammography. Stable benign calcifications. There is no discrete abnormality. No significant changes when compared with prior studies. ASSESSMENT: Benign, BI-RAD 2 RECOMMENDATION: Routine screening mammogram of both breasts in 1 year.
== END ==
LOC: RADMAMWWP 15:02
PROVIDERS: ATTEND Family Medicine
DX: Z12.31 Encounter for screening mammogram for malignant neoplasm of breast (principal)
CPT/HCPCS: 77067

== ENCOUNTER → 2019-02-04 | Outpatient (CLI) | payer BC ==
--- NOTE | 2019-02-08 09:50 | MM ---
Reason for exam: screening (asymptomatic). Last mammogram was performed 1 year ago. History: Patient is postmenopausal, has history of breast cancer at age 40, has history of other cancer at age 40, and is nulliparous. Excisional biopsy of the right breast, June 10, 2000. Stereotactic core biopsy of the right breast, May 13, 2000. Core biopsy of the right breast. Lumpectomy of the right breast. Radiation therapy of the right breast. Took hormonal contraceptives for 3 years. Physical Findings: A clinical breast exam by your physician is recommended on an annual basis and results should be correlated with mammographic findings. MG Screening Mammo w CAD Bilateral CC and MLO view(s) were taken. Prior study comparison: January 20, 2018, bilateral MG screening mammo w CAD. January 10, 2017, bilateral MG screening mammo w CAD. There are scattered fibroglandular densities. There is a 5mm right upper outer quadrant mass. Benign appearing bilateral calcifications. No suspicious abnormality on the left breast. ASSESSMENT: Incomplete: need additional imaging evaluation, BI-RAD 0 RECOMMENDATION: Special view mammogram of the right breast. If lesion persists on supplemental views, image directed ultrasound is recommended. [facility] will attempt to contact patient to return for supplemental views and ultrasound if indicated.
== END | disposition home or self-care (01) ==
LOC: RADMAMWWP 14:25
PROVIDERS: ATTEND Family Medicine
DX: Z12.31 Encounter for screening mammogram for malignant neoplasm of breast (principal)
CPT/HCPCS: 77067

== ENCOUNTER → 2019-02-23 | Outpatient (CLI) | payer BC ==
--- NOTE | 2019-02-24 12:27 | MM ---
Reason for exam: additional evaluation requested from abnormal screening. Last mammogram was performed 1 month ago. History: Patient is postmenopausal, has history of breast cancer at age 40, has history of other cancer at age 40, and is nulliparous. Excisional biopsy of the right breast, June 10, 2000. Stereotactic core biopsy of the right breast, May 13, 2000. Core biopsy of the right breast. Lumpectomy of the right breast. Radiation therapy of the right breast. Took hormonal contraceptives for 3 years. Physical Findings: Nurse did not find any significant physical abnormalities on exam. MG Work Up Mamm w CAD RT Spot compression CC, spot compression MLO, and ML view(s) were taken of the right breast. Prior study comparison: February 04, 2019, bilateral MG screening mammo w CAD. January 20, 2018, bilateral MG screening mammo w CAD. There are scattered fibroglandular densities. Benign calcifications. These results were verbally communicated with the patient and result sheet given to the patient on 02/23/19. ASSESSMENT: Probably benign, BI-RAD 3 RECOMMENDATION: Follow-up diagnostic mammogram of the right breast in 6 months.
== END ==
LOC: RADMAMWWP 14:56
PROVIDERS: ATTEND Family Medicine
DX: R92.8 Other abnormal and inconclusive findings on diagnostic imaging of breast (principal)
CPT/HCPCS: 77065

== ENCOUNTER → 2019-05-28 | Outpatient (CLI) | payer BC ==
--- NOTE | 2019-05-28 11:48 | FL ---
EXAMINATION TYPE: FL barium swallow w video DATE OF EXAM: 05/28/2019 COMPARISON: NONE HISTORY: Dysphagia, difficulty swallowing pills. The patient was evaluated in the lateral projection during real-time fluoroscopy, during ingestion of barium mixed with solids and liquids. No aspiration or laryngeal penetration. See report from [facility]. 33 seconds fluoroscopy time, no images
== END | disposition home or self-care (01) ==
LOC: RADFLMAIN 10:28
PROVIDERS: ATTEND Family Medicine
DX: R09.89 Other specified symptoms and signs involving the circulatory and respiratory systems (principal)
CPT/HCPCS: 74230

== ENCOUNTER → 2019-09-08 | Outpatient (CLI) | payer BC ==
--- NOTE | 2019-09-09 07:48 | MM ---
Reason for exam: follow-up at short interval from prior study. Last mammogram was performed 6 months ago. History: Patient is postmenopausal, has history of breast cancer at age 40, has history of other cancer at age 40, and is nulliparous. Excisional biopsy of the right breast, June 10, 2000. Stereotactic core biopsy of the right breast, May 13, 2000. Core biopsy of the right breast. Lumpectomy of the right breast. Radiation therapy of the right breast. Took hormonal contraceptives for 3 years. Physical Findings: Nurse Summary: 1 x 0.5cm nodule in the right breast at 12 o'clock (nurse ts). MG Diagnostic Mammo RT w CAD CC, MLO, and LM view(s) were taken of the right breast. Prior study comparison: February 23, 2019, right breast MG work up mamm w CAD RT. February 04, 2019, bilateral MG screening mammo w CAD. The breast tissue is heterogeneously dense. This may lower the sensitivity of mammography. Stable benign calcifications. There is no discrete abnormality including area of concern. No significant new findings when compared with previous films. These results were verbally communicated with the patient and result sheet given to the patient on 09/08/19. ASSESSMENT: Incomplete: need additional imaging evaluation, BI-RAD 0 RECOMMENDATION: Ultrasound of the right breast. Manage patient on a clinical basis.
--- NOTE | 2019-09-09 07:51 | USB ---
Reason for exam: additional evaluation requested from abnormal screening. History: Patient is postmenopausal, has history of breast cancer at age 40, has history of other cancer at age 40, and is nulliparous. Excisional biopsy of the right breast, June 10, 2000. Stereotactic core biopsy of the right breast, May 13, 2000. Core biopsy of the right breast. Lumpectomy of the right breast. Radiation therapy of the right breast. Took hormonal contraceptives for 3 years. US Breast Limited RT Right limited breast ultrasound including focal area of concern, retroareolar and axilla demonstrates a 1.0 x 0.9 x 0.6cm oval, cystic cluster at 10 o'clock, a 0.4 x 0.3 x 0.3cm oval, hypoechoic lesion at 10 o'clock for which a biopsy is recommended and a 2.0 x 2.1 x 1.9cm enlarged lymph node at the axilla. These results were verbally communicated with the patient and result sheet given to the patient on 09/08/19. ASSESSMENT: Suspicious, BI-RAD 4 RECOMMENDATION: Ultrasound core biopsy of the right breast. Called Dr. Andrew's office with mammographic findings and has scheduled an appointment for the patient for 09/09/19 at 10:[address] Alexander. Biopsy scheduled for 09/22/19 at 1:00. PRELIMINARY REPORT CALLED AND FAXED TO DR. ALEXANDER ON 09/08/19.
== END | disposition home or self-care (01) ==
LOC: RADMAMWWP 14:07
PROVIDERS: ATTEND Family Medicine
DX: R93.89 Abnormal findings on diagnostic imaging of other specified body structures (principal); N63.10 Unspecified lump in the right breast, unspecified quadrant
CPT/HCPCS: 77065

== ENCOUNTER → 2019-09-09 | Outpatient (CLI) | payer BC ==
[2019-09-09 10:40] VITALS: BP 133/75; PULSE 68; RESP 16; TEMP 98
--- NOTE | 2019-09-09 11:16 | P.GSHP ---
History of Present Illness H&P Date: 09/09/19 Chief Complaint: radiographic abnormality right brest and axilla Yanira is a 59-year-old white female seen in consultation for Dr. Andrew for radiographic abnormality of the right breast. She had a bilateral breast mammogram performed in January 2019. This revealed a questionable area in the upper outer quadrant of the right breast and additional radiograph was obtained. On spot compression views the area seemed to compress out and follow-up diagnostic mammogram in 6 months was recommended. Repeat right breast mammogram on 09/04/19 was performed. The patient had some nodularity noted findings. An ultrasound was recommended. On ultrasound the patient was noted to have 0.4 x 0.3 cm lesion at 10:00 for which a biopsy was recommended. Additionally a 2 cm enlarged lymph node in the axilla was noted. The patient states she had a right breast lumpectomy in 2000 for right breast cancer, she had radiation therapy. She did not have any hormonal therapy. She is uncertain as to whether they checked the lymph nodes under her arm. The patient does not feel anything in her breast or in her axilla for which she is concerned. She is not complaining of any pain in her breasts. No recent history of trauma or infection in the breast. She is not complaining of any nipple discharge or skin changes. Caffeine: she drinks one cup of coffee and one pop /day smoke:none; she is not exposed to second hand smoke chocolate: eats daily Family History: father: colon, esophageal, and stomach cancer patient: right breast cancer, mouth cancer Hormonal History: menarche: 16 , 1 miscarriage, age at miscarriage 35 menopause: hysterectomy at 46, done for pain no cancer BCP: 2 years hormones: estrovan 3 years Surgical history: 1. Mouth 2. Hysterectomy 3. Cyst on ovaries Medical History: 1. Schizophrenia 2. Hypertension 3. High cholesterol 4. Prediabetic 5. Depression Social history: Smoke: Negative Alcohol: One/month; one drink Drugs: Negative - Constitutional Constitutional: Denies chills, Denies fever - EENT Comment: Macular telangiectasias both eyes Eyes: denies blurred vision, denies pain Ears: deny: decreased hearing, tinnitus Ears, nose, mouth and throat: Denies headache, Denies sore throat - Breasts Breasts: bilateral: as per HPI - Cardiovascular Cardiovascular: Reports high blood pressure, Denies chest pain, Denies shortness of breath - Respiratory Respiratory: Denies cough, Denies 7 - Gastrointestinal Comment: colitis in past Gastrointestinal: Reports constipation, Denies abdominal pain, Denies diarrhea, Denies nausea, Denies vomiting - Genitourinary (Female) Genitourinary: Denies dysuria, Denies hematuria - Menstruation Menstruation: Reports post hysterectomy - Musculoskeletal Musculoskeletal: Denies myalgias - Integumentary Integumentary: Denies pruritus, Denies rash - Neurological Neurological: Reports weakness - Psychiatric Comment: schizophrenia Psychiatric: Reports depression - Endocrine Endocrine: Denies fatigue, Denies weight change - Hematologic/Lymphatic Comment: none - Allergic/Immunologic Allergic/Immunologic: Reports as per HPI 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, schizophrenia, depression, multiple drug ALLERGIES, bronchial asthma, prediabetes History of Any Multi-Drug Resistant Organisms: None Reported Past Surgical History: Breast Surgery, Hysterectomy Additional Past Surgical History / Comment(s): RIGHT BREAST LUMPECTOMY 2000; right-sided mouth resection 2000; Past Anesthesia/Blood Transfusion Reactions: No Reported Reaction Past Psychological History: Anxiety, Depression, Schizophrenia Additional Psychological History / Comment(s): Takes Ziprexa and Celexa Smoking Status: Never smoker Past Alcohol Use History: Occasional Past Drug Use History: None Reported - Past Family History Mother Family Medical History: No Reported History Father Family Medical History: Cancer Additional Family Medical History / Comment(s): COLON, ESOPHAGEAL Medications and Allergies Home Medications Medication Instructions Recorded Confirmed Type Citalopram Hydrobromide 40 mg PO HS 07/01/14 09/09/19 History [Citalopram HBr] OLANZapine [Olanzapine] 10 mg PO HS 07/01/14 09/09/19 History amLODIPine [Norvasc] 5 mg PO QAM 05/26/16 09/09/19 History Cetirizine HCl [Zyrtec] 10 mg PO QAM 05/05/17 09/09/19 History Ipratropium/Albuterol Sulfate 2 puff INHALATION DAILY PRN 05/05/17 09/09/19 History [Combivent Respimat Inhaler] Acetaminophen Tab [Tylenol] 650 mg PO Q6HR PRN tab 05/07/17 09/09/19 Rx Ibuprofen [Motrin] 400 mg PO Q6HR PRN #20 tab 05/07/17 09/09/19 Rx Citalopram Hydrobromide [CeleXA] 40 mg PO HS 09/09/19 09/09/19 History Fluticasone/Salmeterol [Advair 1 inhalation PO BID 09/09/19 09/09/19 History 250-50 Diskus] busPIRone HCl [Buspar] 15 mg PO BID 09/09/19 09/09/19 History cloNIDine HCL [Catapres] 0.1 mg PO BID 09/09/19 09/09/19 History Allergies Allergy/AdvReac Type Severity Reaction Status Date / Time barley Allergy Unknown Verified 09/09/19 10:23 Childhood Beef Containing Products Allergy Swelling Verified 09/09/19 10:23 gluten Allergy Anaphylaxis Verified 09/09/19 10:23 house dust Allergy Swelling Unverified 09/09/19 10:23 mold Allergy Swelling Verified 09/09/19 10:23 pollen extracts Allergy Swelling Verified 09/09/19 10:23 tree and shrub pollen Allergy Swelling Unverified 09/09/19 10:23 wheat Allergy Swelling Unverified 09/09/19 10:24 coconut AdvReac Unknown Unknown Verified 09/09/19 10:23 celery AdvReac Vomiting Verified 09/09/19 10:23 Surgical - Exam Vital Signs Temp Pulse Resp BP Pulse Ox 98.0 F 68 16 133/75 96 09/09/19 10:32 09/09/19 10:32 09/09/19 10:32 09/09/19 10:32 09/09/19 10:32 BMI 30.3 - General obese - Eyes normal ocular movement - ENT no hearing loss, no congestion - Neck no masses, trachea midline - Respiratory normal expansion, normal respiratory effort, clear to percussion, clear to auscultation - Cardiovascular Rhythm: regular Heart Sounds: normal: S1, S2 - Abdomen Abdomen: soft, non tender, no guarding, no rigid, no rebound - Integumentary normal turgor - Neurologic no disoriented, no combative - Musculoskeletal normal gait, normal posture - Psychiatric oriented to time, oriented to person, oriented to place, speech is normal, memory intact Breast exam: BRA 44A inspection: Right breast is significantly smaller than the left breast, nipple ptosis grade 1, left breast nipple ptosis grade 2/3 Palpation: Right breast: Multiple positional exam fibrocystic changes, scar changes from prior surgery lumpectomy, slight increased nodularity at 12 o'clock position an upper quadrant region Right axilla: No adenopathy of concern Left breast: Multiple positional exam fibrocystic changes, no dominant masses or nodules of concern Left axilla: No adenopathy of concern Results Mammogram and ultrasound results reviewed with Dr. Ace Assessment and Plan Assessment: Impression: 1. Patient status post right breast lumpectomy and radiation therapy for stage I right breast cancer 2. Radiographic abnormality right breast 3. Fibrocystic breast changes 4. history of schizophrenia 5. pre-diabetic 6. HTN 7. high cholesterol Plan: 1. right breast and axilla biopsy core 2. obtain pathology results from prior lumpectomy 2000 3. medical managment of medical conditions 4. Consider symmetry procedure after results of the right breast biopsy reviewed CC: Dr. Andrew Risks and benefits of core biopsy discussed with the patient. She understands and wishes to proceed. Risks include but are not limited to bleeding, infection, inability to sample the area. encounter 50 minutes, > 50% of time in planning and counselling
== END | disposition home or self-care (01) ==
LOC: WWCWWP 10:07
PROVIDERS: ATTEND Surgery
DX: Z53.9 Procedure and treatment not carried out, unspecified reason (principal)

== ENCOUNTER → 2019-09-22 | Day surgery (SDC) | payer BC ==
--- NOTE | 2019-09-22 14:23 | USB ---
EXAMINATION TYPE: US biopsy breast VAD RT aborted right breast biopsy, ultrasound-guided axillary node biopsy DATE OF EXAM: 09/22/2019 CLINICAL HISTORY: R92.8 Abnormal Mammogram. TECHNIQUE: Ultrasound guided core biopsy of right axilla COMPARISON: NONE FINDINGS: The procedure of ultrasound guided core biopsy was explained to the patient. Benefits, alternatives, and risks were discussed. An informed consent was then obtained. The 3 mm abnormality described in the right breast at 10:00 position 2 cm from the nipple does not show a reproducible appearance of a mass. The biopsy is aborted. Attention directed to the right axilla. Maximal barrier technique was utilized. The skin overlying a suitable path to the lesion was localized and the skin was prepped and draped. Lidocaine was used for local anesthesia. Skin olive made with a scalpel. An 18-gauge needle was advanced into the lesion in the right axillary tail and core specimen obtained of the echogenic focus. No immediate application. Hemostasis achieved. The patient remained in stable condition. The patient tolerated the procedure well without any immediate complication. The patient was kept in the radiology department for short stay after the procedure and then discharged home in stable condition. IMPRESSION: Successful, uncomplicated ultrasound guided core biopsy of area of concern in the right axillary node, full pathology results to follow. Breast biopsy was canceled, follow-up right breast ultrasound in 6 months. Pathology Results: Benign RIGHT AXILLARY LYMPH NODE, CORE BIOPSY: Scanty fragment of benign lymph node tissue. Severely limited sample, see note. Recommendation Follow up mammogram of the right breast in 6 months. However limited sample, consider follow up versus repeat biopsy. MTDD
--- NOTE | 2019-09-24 13:55 | CDI ---
Date: 09.24.2019 CDS/Machine Tool Operator Name: Zuri Whitten Phone: If any questions, call Adela Brantley Stonecutter Apprentice Hand at [phone] Patient Name: Yanira Vinson Admit Date: 09.22.19 Discharge Date: 09.22.19 ATTENTION: The [facility] Coding Staff appreciate your assistance in clarifying documentation. Please respond to the clarification below the line at the bottom and electronically sign. The [facility] Coding staff will review the response and follow-up if needed. Please note: Queries are made part of the Legal Health Record. If you have any questions, please contact the Stonecutter Apprentice Hand. Dear Dr. Benites Please document the depth of the lymph node biopsy: __Deep __superficial Thank you for your kind consideration. superficial MTDD
== END ==
LOC: RADUSWWP 12:21
PROVIDERS: ATTEND Surgery
DX: R92.8 Other abnormal and inconclusive findings on diagnostic imaging of breast (principal); J30.2 Other seasonal allergic rhinitis
CPT/HCPCS: 38505; 88305

== ENCOUNTER → 2019-12-29 | Outpatient (CLI) | payer BC ==
--- NOTE | 2019-12-29 11:41 | NM ---
EXAMINATION TYPE: NM stress cardiolite complete DATE OF EXAM: 12/29/2019 COMPARISON: NONE HISTORY: Chest pain TECHNIQUE: After the intravenous administration of 10.13 mCi Tc 99m Sestamibi - Rest images obtained 75 minutes post injection. The patient exercised using a DUGLAS protocol and 1 minute prior to peak exercise was injected with 25.3 mCi Tc 99m Sestamibi - Stress images obtained 35 minutes post inject ion. FINDINGS: Targeted heart rate was achieved during performance of the study. Review of stress and rest SPECT estelita ges demonstrates no distinct perfusion abnormality. Gated analysis shows normal wall motion with an estimated left ventricular ejection fraction of 56 %. IMPRESSION: No scintigraphic evidence for reversible ischemia
--- NOTE | 2019-12-29 12:11 | EST ---
EXERCISE STRESS AGE: 59 SEX: F HT: 6'1" WT: 220 PROTOCOL: Cardiolite Farzad Stress Test STAGE: II DURATION OF EXERCISE: 5:00 HEART RATE REST: 71 BLOOD PRESSURE REST: 141/84 MAXIMUM HEART RATE ACHIEVED: 153 MAXIMUM BLOOD PRESSURE: 210/78 85% MPHR: 137 100% MPHR: 161 METS: 6.8 INDICATIONS: Chest pain. CLINICAL INFORMATION: Baseline rhythm is a sinus mechanism, right bundle branch block. Baseline blood pressure 141/84 mmHg. Patient exercised on Farzad protocol for 5 minutes reaching a peak rate 153 beats per minute which is equal to 95% of maximum predicted heart rate. Peak blood pressure 210/78 mmHg. Test was terminated due to fatigue. There was no chest pain. Electrocardiograph monitoring revealed no evidence of diagnostic ischemic ST deviation. Cardiolite was injected at peak exercise. CONCLUSION: 1. Decreased exercise tolerance was normal echocardiograph response to exercise. 2. Nuclear images will be reported separately. MMODL / IJN: [id number] /
== END | disposition home or self-care (01) ==
LOC: RADNMMAIN 07:42
PROVIDERS: ATTEND Family Medicine
DX: R07.89 Other chest pain (principal)
CPT/HCPCS: 93017; 78452; A9500

== ENCOUNTER → 2020-05-17 | Outpatient (CLI) | payer BC ==
--- NOTE | 2020-05-17 17:27 | CONS ---
CONSULTATION DATE OF SERVICE: 05/17/2020 This patient is a 59-year-old lady who has been evaluated in the sleep center for possible obstructive sleep apnea-hypopnea syndrome. HISTORY OF PRESENT ILLNESS/SLEEP-WAKE EVALUATION: The patient's usual sleep schedule on weekdays is from 8 p.m. until 3:30 a.m., on weekend from 10 p.m. until 12 noon or 1:30 p.m. No problems with falling asleep, although she has a TV set in the bedroom. She sleeps in different positions with loud snoring and witnessed episodes of stopped breathing during sleep. The patient wakes up from sleep 2 times with nocturia and dry mouth, episodes of heartburn, gasping for air and choking. In the morning the patient wakes up tired, falling asleep during the day, has problems with memory, depression and anxiety. [place] Sleepiness Scale is significantly increased to 13. PAST MEDICAL HISTORY: Positive for hypertension, hyperlipidemia, asthma, sinus problems, schizophrenia, acid reflux. PAST SURGICAL HISTORY: Lumpectomy and radiation for breast carcinoma, total hysterectomy, surgery on the mouth for cancer. MEDICATIONS: 1. Buspirone 15 mg twice a day. 2. Clonidine 0.1 mg twice a day. 3. Amlodipine 5 mg once a day. 4. Zyrtec 10 mg once a day. 5. Olanzapine 10 mg once a day. 6. Citalopram 20 mg once a day. 7. Advair. SOCIAL HISTORY: Negative for smoking or using alcohol. FAMILY HISTORY: Heart problems, arthritis, anemia. REVIEW OF SYSTEMS: Multiple awakenings from sleep, sleepiness during the day. Snoring. PHYSICAL EXAMINATION: GENERAL: A pleasant lady without distress. VITAL SIGNS: BP 158/73, HR 73, RR 16, height 6 feet 0 inches, weight 239 pounds. Body mass index 31.5. Temperature 97.5, oxygen saturation at room air 96%. HEENT: PERRLA, EOMI. Evaluation of oropharynx showed tongue protrudes midline. Mallampati II to III. NECK: Supple. No JVD. Thyroid is not palpable. Neck measures 16 inches in circumference. LUNGS: Clear to percussion and to auscultation. Good air exchange. No wheezing or rhonchi. HEART: S1, S2 regular. No murmurs, gallops or rubs. ABDOMEN: Soft and nontender. Bowel sounds are present. No organomegaly appreciated. EXTREMITIES: No clubbing or cyanosis. RADIO NEWS WRITER: Awake, alert, and oriented X3. Cranial nerves 2 to 7 intact. There is no fasciculation or atrophy. noted. No focal deficits observed. IMPRESSION: 1. Loud snoring, witnessed episodes of stopped breathing during sleep, multiple awakenings from sleep with nocturia, gasping for air and choking, wide neck for female measuring 16 inches, sleepiness, [place] Sleepiness Scale of 13; obstructive sleep apnea-hypopnea syndrome. 2. Hypertension. 3. Asthma. 4. Sinus problems. 5. History of sinusitis. 6. History of breast carcinoma, treated by lumpectomy and radiation therapy. 7. History of schizophrenia. 8. Acid reflux. 9. Status post surgical treatment of cancer of the mouth. 10.Status post total hysterectomy. 11.Mild obesity. PLAN: 1. Home sleep apnea test for evaluation of patient's breathing during sleep to confirm obstructive sleep apnea-hypopnea syndrome. 2. Polysomnography for evaluation of patient's breathing during sleep. 3. CPAP/BiPAP titration if sleep study confirms obstructive sleep apnea-hypopnea syndrome. 4. Preferable position during sleep on the side. 5. No driving if patient feels any sleepiness. 6. I will see patient for follow up visit to explain results of testing and following plan. Thank you very much for referring this patient for consultation. Sincerely, Chad Stephens MD, PhD, FAASM Diplomat of [place] [employer] [place] [employer] Service Transformer Repair Supervisor of [facility] [place] MMODL / ENRIQUEN: [id number] /
== END ==
CPT/HCPCS: 99211

== ENCOUNTER → 2020-08-02 | Outpatient (CLI) | payer BC ==
--- NOTE | 2020-08-02 23:19 | SFUN ---
SLEEP CENTER FOLLOW UP NOTE DATE OF SERVICE: 08/02/2020. 60-year-old lady has been followed in Sleep Center for treatment of obstructive sleep apnea-hypopnea syndrome. Recently the patient had home sleep apnea test which showed moderate soft to severe obstructive sleep apnea-hypopnea syndrome and subsequently patient was started on treatment with CPAP. Today is his first visit after getting CPAP equipment. The patient is trying to use equipment every night and she feels that she sleeps better with equipment. I checked her CPAP unit. Range of the pressure 5-18. The average pressure 17.4. Usage is every night and 29/30 nights for more than 4 hours with average usage is 6.9 hours per night. Leak is slightly high at 38 L/minute. Apnea- hypopnea index is 5.8, slightly above the border. Apnea index included at this number is 4.2. [place] Sleepiness Scale is 8. MEDICATIONS: Buspirone 15 mg twice a day, clonidine 0.1 mg twice a day, amlodipine 5 mg once a day, Zyrtec 10 mg once a day. Olanzapine 10 mg once a day, citalopram 20 mg once a day. Advair. PHYSICAL EXAMINATION: GENERAL: Patient in no distress. BP 131/66, HR 68, RR 20, oxygen saturation from 94%. Weight 229.8 pounds. Temp is 96.9. Oropharynx moderately low position of soft palate. Mallampati 2-3. NECK: Supple, no JVD. Thyroid is not palpable. LUNGS: Clear to percussion and to auscultation. Good air exchange. No wheezing or rhonchi. HEART: S1, S2 regular. No murmurs, gallops, or rubs. ABDOMEN: Soft and nontender. Bowel sounds are present. No organomegaly appreciated. EXTREMITIES: No clubbing or cyanosis. SAFETY ASSISTANT: Awake, alert, and oriented X3. Cranial nerves 2 to 7 intact. There is no fasciculation or atrophy. noted. No focal deficits observed. IMPRESSION: 1. Obstructive sleep apnea-hypopnea syndrome; apnea-hypopnea index 27.1 with oxygen desaturation to 81%. Oxygen level below normal for 12 minutes by results of home sleep apnea test. The patient demonstrated practically 100% compliance with treatment benefitting from treatment. Apnea-hypopnea index 5.8 on CPAP unit. 2. Hypertension. 3. Asthma. 4. Sinus problems. 5. History of breast carcinoma, status post lumpectomy and radiation therapy. 6. History of schizophrenia. 7. Acid reflux. 8. Status post surgical treatment of cancer of the mouth. 9. Status post total hysterectomy. 10.Mild obesity. PLAN: 1. I will increase regimen of auto PAP pressure from 5-19. 2. Patient will continue to use PAP equipment every night for the whole night. 3. Sleep hygiene with regular time in bed for at least 7-1/2 to 8 hours. 4. Precautions related to driving. No driving if feeling sleepiness. 5. I will maintain all necessary prescription for PAP supplies including mask, tube, filters. 6. Watching weight. 7. Follow-up visit in 6 months or earlier if patient has any problems. Thank you very much for allowing me to participate in management of your patient. Sincerely, Chad Stephens MD, PhD, FAASM Diplomat of [place] [employer] [place] [employer] Chef De Cuisine of [facility] [place] MMODL / IJN: [id number] /

== ENCOUNTER → 2021-01-29 | Outpatient (CLI) | payer BC ==
--- NOTE | 2021-01-29 18:01 | CT ---
EXAMINATION TYPE: CT chest w con DATE OF EXAM: 01/29/2021 COMPARISON: 10/18/2013 HISTORY: Lung nodule CT DLP: 371.5 mGycm, Automated exposure control for dose reduction was used. CONTRAST: Performed injected with 100 mL of Isovue 300. TECHNIQUE: Axial images were obtained at 5 mm thick sections. Reconstructed images are reviewed on haystagg computer in the coronal plane. FINDINGS: Portion of the thyroid visualized is normal. There is some mild streak opacities within the bilateral lungs likely on the basis of atelectasis. A 0.6 cm nodule was not excluded within the left upper lung field. Series 4 image 24. This was present in 2013 and appears stable. No enlarged mediastinal or hilar adenopathy is evident. The ascending aorta diameter at the level o f the main pulmonary artery is 3.5 cm. The main pulmonary artery diameter at the bifurcation is 2.7 cm. Mild coronary artery calcifications present. Limited CT sections are obtained through the upper abdomen. Abdomen is essentially unremarkable. IMPRESSIONS: 1. Stable left upper lung field nodule.
== END | disposition home or self-care (01) ==
LOC: RADCTMAIN 07:29
PROVIDERS: ATTEND Family Medicine
DX: R91.1 Solitary pulmonary nodule (principal)
CPT/HCPCS: 71260; Q9967

== ENCOUNTER 2021-02-14 07:45 | Day surgery (SDC) | payer BC ==
[2021-02-09 09:53] VITALS: BMI 29.0
[~2021-02-14 07:45] MED LIST: LACTATED RINGERS 1,000 ML IV SCH
[2021-02-14] MEDS ORDERED: LIDOCAINE 1% (10MG/ML) FOR IV START INTRADERMA ONE (08:20)
[2021-02-14 08:28] VITALS: TEMP 98.1
[2021-02-14 08:31] LABS: Glucose,Whole Blood 135 mg/dL (75-99)
[2021-02-14] MEDS ORDERED: PROPOFOL 10 MG/ML 20 ML VIAL IV ONE (08:51)
[2021-02-14] MEDS ORDERED: LIDOCAINE 1% INJ 10MG/ML (20 ML MDV) ONE (08:51)
--- NOTE | 2021-02-14 09:10 | P.PCN ---
Date of Procedure: 02/14/21 Procedure(s) Performed: BRIEF HISTORY: Patient is a 60-year-old pleasant 1 female scheduled for an elective colonoscopy as a part of screening for colon cancer and family history of colon cancer. Her father was diagnosed with colon cancer at age 60. PROCEDURE PERFORMED: Colonoscopy. PREOPERATIVE DIAGNOSIS: 3 for colon cancer and family history of colon cancer. IV sedation per Anesthesia. PROCEDURE: After informed consent was obtained, the patient, was brought into the endoscopy unit. IV sedation was administered by Anesthesia under continuous monitoring. Digital rectal examination was normal. Initially the Olympus CF-160 flexible video colonoscope was then inserted in the rectum, gradually advanced into the cecum without any difficulty. Careful examination was performed as the scope was gradually being withdrawn. Ileocecal valve and the appendiceal orifice were visualized and appeared normal. Prep was excellent. Mucosa of the cecum, ascending colon, transverse colon, descending colon, sigmoid colon, and rectum and melanosis coli. Scattered left-sided diverticulosis seen.. Retroflexion was performed in the rectum and no lesions were seen. The patient tolerated the procedure well. IMPRESSION: Mild melanosis coli Scattered left sided diverticulosis. No evidence of colorectal neoplasia RECOMMENDATIONS: Findings of this examination were discussed with the patient as well as a family. She was advised to have a repeat screening colonoscopy in 5 years because of family history of colon cancer.
[2021-02-14 09:16] VITALS: PULSE 66
[2021-02-14 09:29] VITALS: BP 148/84; RESP 18
== END 2021-02-14 09:44 | disposition home or self-care (01) ==
LOC: ORWHC2ENDO 07:45
PROVIDERS: ATTEND Internal Medicine Gastroenterology
DX: Z12.11 Encounter for screening for malignant neoplasm of colon (principal); K63.89 Other specified diseases of intestine; K57.90 Diverticulosis of intestine, part unspecified, without perforation or abscess without bleeding
CPT/HCPCS: 45378; J2001; J2704

== ENCOUNTER 2021-11-13 07:38 | Observation (INO) | payer BC ==
--- NOTE | 2021-11-13 07:47 | ED ---
Chest Pain HPI - General Chief Complaint: Chest Pain Stated Complaint: chest pain Time Seen by Provider: 11/13/21 07:40 Source: patient, EMS Mode of arrival: EMS Limitations: no limitations - History of Present Illness Initial Comments: 61-year-old female with past medical history of asthma, breast cancer, hypertension presents to the emergency department with chest pain. States that she was at work when the pain came on. Located over the left chest. Describes it as a pressure sensation. She did take a nitro which is provided to her from her primary care. Medication was given several years ago and is now . States that she had some chest discomfort back in 2019 and had a stress test which was negative. Nitro prescription was provided after this. States that the medication completely resolved her symptoms. Upon transfer to the hospital EMS gave her 4 baby aspirins. Arrives and states the pain is completely gone at this time. Does have some residual epigastric discomfort. Denies fevers, chills or cough. No ripping or tearing sensation of her back. Denies any abdominal pain. No back pain. No numbness, tingling or weakness in her extremities. Denies associated shortness of breath. No other alleviating, precipitating or modifying factors - Related Data Home Medications Medication Instructions Recorded Confirmed OLANZapine [Olanzapine] 10 mg PO HS 07/01/14 11/13/21 amLODIPine [Norvasc] 5 mg PO QAM 05/26/16 11/13/21 Fluticasone Propion/Salmeterol 1 puff INHALATION RT-BID 09/09/19 11/13/21 [Advair 250-50 Diskus] busPIRone HCl [Buspar] 15 mg PO BID 09/09/19 11/13/21 cloNIDine HCL [Catapres] 0.2 mg PO BID 09/09/19 11/13/21 Citalopram Hydrobromide [CeleXA] 20 mg PO AC-SUPPER 11/13/21 11/13/21 Allergies Allergy/AdvReac Type Severity Reaction Status Date / Time coconut Allergy Unknown Unknown Verified 11/13/21 09:03 barley Allergy Unknown Verified 11/13/21 09:03 Childhood celery Allergy Vomiting Verified 11/13/21 09:03 gluten Allergy Swelling - Verified 11/13/21 09:03 throat house dust Allergy Swelling Verified 11/13/21 09:03 mold Allergy Swelling - Verified 11/13/21 09:03 throat pollen extracts Allergy Swelling - Verified 11/13/21 09:03 throat tree and shrub pollen Allergy Swelling Verified 11/13/21 09:03 wheat Allergy Swelling Verified 11/13/21 09:03 Beef Containing Products AdvReac Throat Verified 11/13/21 09:03 hurts & burgos rye AdvReac "Pneumonia" Uncoded 11/13/21 09:03 Review of Systems ROS Statement: Those systems with pertinent positive or pertinent negative responses have been documented in the HPI. ROS Other: All systems not noted in ROS Statement are negative. EKG Findings - EKG Comments: EKG Findings:: EKG demonstrates sinus rhythm with a rate of 65. GA interval 172. QRS 149. QTC of 450. 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 General Exam Limitations: no limitations Course Vital Signs 11/13/21 07:43 Pulse Rate 71 Respiratory 18 Rate Blood Pressure 120/70 O2 Sat by Pulse 98 Oximetry Chest Pain MDM - MDM Upon arrival patient was placed into room 16. Thorough history and physical exam was performed. Patient placed on continuous pulse ox and cardiac monitoring. 12-lead EKG is obtained which demonstrates no acute ST segment elevation. Laboratory studies are conducted and reviewed. Troponin is negative. Chest x-ray demonstrates COPD. Patient remains pain free. Patient will be admitted for cardiac observation. Spoke with Dr. Drew who agreed to admit the patient. Disposition Clinical Impression: Chest pain Disposition: ADMITTED IP TO THIS HOSP Condition: Stable Is patient prescribed a controlled substance at d/c from ED?: No Referrals: Aguilar Andrew DO [Primary Care Provider] - 1-2 days Decision to Admit Reason: Admit from EC Decision Date: 11/13/21 Decision Time: 09:41
[2021-11-13 07:59] LABS: Basophils # (A) 0.1 k/uL (0-0.2); Basophils % (A) 1 %; Eosinophils # (A) 0.2 k/uL (0-0.7); Eosinophils % (A) 2 %; HCT 40.1 % (34.0-46.0); HGB 13.3 gm/dL (11.4-16.0); Lymphocytes # (A) 1.6 k/uL (1.0-4.8); Lymphocytes % (A) 17 %; MCH 30.1 pg (25.0-35.0); Mean Platelet Volume 7.2; Monocytes # (A) 0.4 k/uL (0-1.0); Monocytes % (A) 5 %; Neutrophils % (A) 75 %; Platelet Count 204 k/uL (150-450); RBC 4.41 m/uL (3.80-5.40); RDW 12.2 % (11.5-15.5); WBC 9.3 k/uL (3.8-10.6)
[2021-11-13 08:07] LABS: INR 0.9 (<1.2); Partial Thromboplastin Time 23.3 sec (22.0-30.0); Prothrombin Time 10.1 sec (9.0-12.0)
[2021-11-13 08:13] LABS: ALT 32 U/L (4-34); AST 29 U/L (14-36); African American GFR (CKD) >90 (>60 ml/min/1.73 sqM); Albumin 4.3 g/dL (3.5-5.0); Alkaline Phosphatase 71 U/L (38-126); Anion Gap 12 mmol/L; Blood Urea Nitrogen 22 mg/dL (7-17); Calcium 9.3 mg/dL (8.4-10.2); Carbon Dioxide 23 mmol/L (22-30); Chloride 104 mmol/L (98-107); Glucose 133 mg/dL (74-99); Lipase 64 U/L (23-300); Magnesium 1.9 mg/dL (1.6-2.3); Non-African American GFR(CKD) >90 (>60 ml/min/1.73 sqM); Potassium 3.7 mmol/L (3.5-5.1); Sodium 139 mmol/L (137-145); Total Bilirubin 0.2 mg/dL (0.2-1.3); Total Protein 6.7 g/dL (6.3-8.2)
--- NOTE | 2021-11-13 08:52 | XR ---
EXAMINATION TYPE: XR chest 2V DATE OF EXAM: 11/13/2021 COMPARISON: None TECHNIQUE: PA and lateral views submitted. HISTORY: Chest pain FINDINGS: The lungs are clear and there is no pneumothorax, pleural effusion, or focal pneumonia. Heart size upper limits of normal. Hyperinflation suggests COPD. Hypertrophic and degenerative change of the spi ne. Mildly coarsened interstitium. Biapical pleural thickening. IMPRESSION: 1. COPD correlate for chronic interstitial lung disease.
[2021-11-13] MEDS ORDERED: NALOXONE 0.4 MG/ML 1 ML VIAL IV PRN (09:41)
--- NOTE | 2021-11-13 10:19 | P.HPIM ---
History of Present Illness 61-year-old pleasant female came in with compensative chest pain on the left side of the chest lasted for 5 minutes 7/10 in severity associated with lightheadedness denied any shortness of breath possible diaphoresis as well. Chest pain radiates to the right side of the chest and also to the mandible nausea. Chest pain is nonpruritic in nature not associated with food pressure- like sensation appears to be nonexertional patient had a stress test in 2019 patient denied any other cardiac history does have history of hypertension. Patient had nonspecific ST-T wave changes in the inferior leads and intraventricular conduction delay with a split QRS complex in the lateral leads. No previous EKG to compare with REVIEW OF SYSTEMS: CONSTITUTIONAL: No fever, no malaise, no fatigue. HEENT: No recent visual problems or hearing problems. Denied any sore throat. CARDIOVASCULAR: No orthopnea, PND, no palpitations, no syncope. PULMONARY: No shortness of breath, no cough, no hemoptysis. GASTROINTESTINAL: No diarrhea, no nausea, no vomiting, no abdominal pain. NEUROLOGICAL: No headaches, no weakness, no numbness. HEMATOLOGICAL: Denies any bleeding or petechiae. GENITOURINARY: Denies any burning micturition, frequency, or urgency. MUSCULOSKELETAL/RHEUMATOLOGICAL: Denies any joint pain, swelling, or any muscle pain. ENDOCRINE: Denies any polyuria or polydipsia. The rest of the 14-point review of systems is negative. PHYSICAL EXAMINATION: GENERAL: The patient is alert and oriented x3, not in any acute distress. Well developed, well nourished. HEENT: Pupils are round and equally reacting to light. EOMI. No scleral icterus. No conjunctival pallor. Normocephalic, atraumatic. No pharyngeal erythema. No thyromegaly. CARDIOVASCULAR: S1 and S2 present. No murmurs, rubs, or gallops. PULMONARY: Chest is clear to auscultation, no wheezing or crackles. ABDOMEN: Soft, nontender, nondistended, normoactive bowel sounds. No palpable organomegaly. MUSCULOSKELETAL: No joint swelling or deformity. EXTREMITIES: No cyanosis, clubbing, or pedal edema. NEUROLOGICAL: Gross neurological examination did not reveal any focal deficits. SKIN: No rashes. Assessment and plan -Chest pain: We will rule out acute coronary syndromes etiology will evaluate the patient will obtain 2 more sets of troponins and EKGs. 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 Medications and Allergies Home Medications Medication Instructions Recorded Confirmed Type OLANZapine [Olanzapine] 10 mg PO HS 07/01/14 11/13/21 History amLODIPine [Norvasc] 5 mg PO QAM 05/26/16 11/13/21 History Fluticasone Propion/Salmeterol 1 puff INHALATION RT-BID 09/09/19 11/13/21 History [Advair 250-50 Diskus] busPIRone HCl [Buspar] 15 mg PO BID 09/09/19 11/13/21 History cloNIDine HCL [Catapres] 0.2 mg PO BID 09/09/19 11/13/21 History Citalopram Hydrobromide [CeleXA] 20 mg PO AC-SUPPER 11/13/21 11/13/21 History Allergies Allergy/AdvReac Type Severity Reaction Status Date / Time coconut Allergy Unknown Unknown Verified 11/13/21 09:03 barley Allergy Unknown Verified 11/13/21 09:03 Childhood celery Allergy Vomiting Verified 11/13/21 09:03 gluten Allergy Swelling - Verified 11/13/21 09:03 throat house dust Allergy Swelling Verified 11/13/21 09:03 mold Allergy Swelling - Verified 11/13/21 09:03 throat pollen extracts Allergy Swelling - Verified 11/13/21 09:03 throat tree and shrub pollen Allergy Swelling Verified 11/13/21 09:03 wheat Allergy Swelling Verified 11/13/21 09:03 Beef Containing Products AdvReac Throat Verified 11/13/21 09:03 hurts & burgos rye AdvReac "Pneumonia" Uncoded 11/13/21 09:03 Physical Exam Vitals: Vital Signs Pulse Resp BP Pulse Ox 11/13/21 07:43 71 18 120/70 98 Intake and Output 11/12/21 11/13/21 11/13/21 22:59 06:59 14:59 Other: Weight 94.801 kg Results CBC & Chem 7: 11/13/21 07:51 11/13/21 07:51 Labs: Abnormal Lab Results - Last 24 Hours (Table) 11/13/21 Range/Units 07:51 BUN 22 H (7-17) mg/dL Glucose 133 H (74-99) mg/dL
[2021-11-13] MEDS ORDERED: ACETAMINOPHEN TAB 325 MG TAB PO STA (10:58)
[2021-11-13] MEDS: CITALOPRAM HYDROBROMIDE 20 MG TAB PO SCH (16:48)
[2021-11-13] MEDS: HYDROcodone/APAP 5-325MG 1 EACH TAB PO PRN (19:29)
[2021-11-13] MEDS: SYMBICORT 80-4.5 MCG INHALER INHALATION SCH (20:02)
[2021-11-13] MEDS: busPIRone HCl 5 MG TAB PO SCH (20:51)
[2021-11-13] MEDS: OLANZapine 10 MG TAB PO SCH (20:51)
[2021-11-14] MEDS: SYMBICORT 80-4.5 MCG INHALER INHALATION SCH ×2 (07:08→19:41)
[2021-11-14] MEDS: HYDROcodone/APAP 5-325MG 1 EACH TAB PO PRN ×2 (08:51→19:55)
[2021-11-14] MEDS: busPIRone HCl 5 MG TAB PO SCH ×2 (08:51→19:54)
[2021-11-14] MEDS: amLODIPine 5 MG TAB PO SCH (08:51)
[2021-11-14 09:11] LABS: African American GFR (CKD) 108.4 (60.0-200.0); Anion Gap 10.1 mmol/L (10.00-18.00); BUN/Creat Ratio 28.14 Ratio (12.00-20.00); Blood Urea Nitrogen 19.7 mg/dL (9.0-27.0); Calcium 8.9 mg/dL (8.7-10.3); Carbon Dioxide 22.9 mmol/L (20.0-27.5); Non-African American GFR(CKD) 93.5 (60.0-200.0); Potassium 4.3 mmol/L (3.5-5.5)
[2021-11-14 09:14] LABS: Basophils # (A) 0.04 X 10*3/uL (0.00-0.10); Basophils % (A) 0.4 %; Eosinophils # (A) 0.23 X 10*3/uL (0.04-0.35); Eosinophils % (A) 2.4 %; HCT 39.5 % (37.2-46.3); HGB 12.7 g/dL (12.0-15.0); Immature Grans, Automated 0.6 %; Lymphocytes # (A) 2.12 X 10*3/uL (0.90-5.00); Lymphocytes % (A) 21.8 %; MCH 29.4 pg (27.0-32.0); MCHC 32.2 g/dL (32.0-37.0); MCV 91.4 fL (80.0-97.0); Mean Platelet Volume 10.2 fL (9.5-12.2); Monocytes # (A) 0.84 X 10*3/uL (0.20-1.00); Monocytes % (A) 8.6 %; NRBC Per 100 WBC 0 /100 WBCS (0.0-0.0); Neutrophils # (A) 6.43 X 10*3/uL (1.80-7.70); Neutrophils % (A) 66.2 %; Platelet Count 184 X 10*3/uL (140-440); RBC 4.32 X 10*6/uL (4.10-5.20); RDW 12.7 % (11.5-14.5); WBC 9.72 X 10*3/uL (4.50-10.00)
--- NOTE | 2021-11-14 10:16 | P.CRDCN ---
History of Present Illness History of present illness: HISTORY OF PRESENTING ILLNESS Patient is a pleasant 61-year-old female with history of asthma, hypertension, psychiatric disorders/schizophrenia, breast lumpectomy who presents secondary chest pain. She started having approximately 5 minutes of left sided chest pain over her left breast with some associated lightheadedness and shortness breath. She denies any similar episodes in the past. She was not doing anything at the time. She did take a nitroglycerin at home and states the pain slowly resided. She denies any cardiac history or prior stents. She did have previous stress test from December 2019 which showed no ischemia. She has been feeling well dressed the morning and denies any further chest pain or shortness breath. Blood work shows troponin normal 3, creatinine 0.67, hemoglobin 13.3. EKG shows sinus rhythm, normal axis, no significant ST or T wave abnormalities. REVIEW OF SYSTEMS At the time of my exam: CONSTITUTIONAL: Denies fever or chills. CARDIOVASCULAR: +chest pain, +shortness of breath, no orthopnea, PND or palpitations. RESPIRATORY: Denies cough. GASTROINTESTINAL: Denies abdominal pain, diarrhea, constipation, nausea or vomiting. MUSCULOSKELETAL: Denies myalgias. NEUROLOGIC: Denies numbness, tingling or weakness. ENDOCRINE: Denies fatigue, weight change, polydipsia or polyurina. GENITOURINARY: Denies burning, hematuria or urgency with micturation. HEMATOLOGIC: Denies history of anemia or bleeding. PHYSICAL EXAMINATION Vital signs reviewed. CONSTITUTIONAL: No apparent distress. HEENT: Head is normocephalic. Pupils are equal, round. Sclerae anicteric. Mucous membranes of the mouth are moist. No JVD. No carotid bruit. CHEST EXAMINATION: Lungs are clear to auscultation. No chest wall tenderness is noted on palpation or with deep breathing. HEART EXAMINATION: Regular rate and rhythm. S1, S2 heard. No murmurs, gallops or rub. ABDOMEN: Soft, nontender. Positive bowel sounds. EXTREMITIES: 2+ peripheral pulses, no lower extremity edema and no calf tenderness. NEUROLOGIC EXAMINATION: Patient is awake, alert and oriented x3. ASSESSMENT 1. Atypical chest pain however was improved with nitroglycerin taken at home 2. Hypertension 3. Schizophrenia PLAN Patient's chest pain appears somewhat atypical however she did take a nitrogl ycerin and states pain resolved after approximately 5 minutes. Acute coronary syndrome has been ruled out. We will check a stress echo to further evaluate. Always a consideration of an arrhythmia causing some of her symptoms however denied any palpitations. If patient has recurrence of symptoms likely perform an event monitor. If stress test unrevealing, patient may be discharged home with outpatient follow-up in 1 week. Past Medical History Past Medical History: Asthma, Cancer, GERD/Reflux, Hyperlipidemia, Hypertension, Pneumonia Additional Past Medical History / Comment(s): Right breast cancer with a previous lumpectomy/radiation treatments, 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, bronchial asthma, FAB with Cpap use, diverticular disease, hemorrhoids, chronic low back pain with R sided sciatica History of Any Multi-Drug Resistant Organisms: None Reported Past Surgical History: Breast Surgery, Hernia Repair, Hysterectomy Additional Past Surgical History / Comment(s): RIGHT BREAST LUMPECTOMY 2000; right-sided mouth resection 2000; septoplasty, colonoscopies/polypectomy, umbilical hernia repair. Past Anesthesia/Blood Transfusion Reactions: No Reported Reaction Additional Past Anesthesia/Blood Transfusion Reaction / Comment(s): Slow to wake Smoking Status: Never smoker - Past Family History Mother Family Medical History: No Reported History Father Family Medical History: Cancer Additional Family Medical History / Comment(s): COLON, ESOPHAGEAL CANCER. Medications and Allergies Home Medications Medication Instructions Recorded Confirmed Type OLANZapine [Olanzapine] 10 mg PO HS 07/01/14 11/13/21 History amLODIPine [Norvasc] 5 mg PO QAM 05/26/16 11/13/21 History Fluticasone Propion/Salmeterol 1 puff INHALATION RT-BID 09/09/19 11/13/21 History [Advair 250-50 Diskus] busPIRone HCl [Buspar] 15 mg PO BID 09/09/19 11/13/21 History cloNIDine HCL [Catapres] 0.2 mg PO BID 09/09/19 11/13/21 History Citalopram Hydrobromide [CeleXA] 20 mg PO AC-SUPPER 11/13/21 11/13/21 History Allergies Allergy/AdvReac Type Severity Reaction Status Date / Time coconut Allergy Unknown Unknown Verified 11/13/21 09:03 barley Allergy Unknown Verified 11/13/21 09:03 Childhood celery Allergy Vomiting Verified 11/13/21 09:03 gluten Allergy Swelling - Verified 11/13/21 09:03 throat house dust Allergy Swelling Verified 11/13/21 09:03 mold Allergy Swelling - Verified 11/13/21 09:03 throat pollen extracts Allergy Swelling - Verified 11/13/21 09:03 throat tree and shrub pollen Allergy Swelling Verified 11/13/21 09:03 wheat Allergy Swelling Verified 11/13/21 09:03 Beef Containing Products AdvReac Throat Verified 11/13/21 09:03 hurts & burgos rye AdvReac "Pneumonia" Uncoded 11/13/21 09:03 Physical Exam Vitals: Vital Signs Temp Pulse Pulse Resp BP BP Pulse Ox 11/14/21 08:46 97.6 F 69 23 137/82 11/14/21 01:56 98.2 F 68 18 121/69 96 11/13/21 20:45 97.7 F 74 20 132/59 96 11/13/21 19:37 70 18 118/77 96 11/13/21 18:46 72 18 115/68 98 11/13/21 16:49 66 16 133/74 96 11/13/21 14:05 71 18 112/58 95 11/13/21 10:55 65 18 119/60 98 Intake and Output 11/13/21 11/14/21 11/14/21 22:59 06:59 14:59 Other: Voiding Method Toilet Toilet # Voids 0 2 Results 11/14/21 05:40 11/14/21 05:40 Cardiac Enzymes 11/13/21 11/13/21 Range/Units 11:35 15:04 Troponin I <0.012 <0.012 (0.000-0.034) ng/mL CBC 11/14/21 Range/Units 05:40 WBC 9.72 (4.50-10.00) X 10*3/uL RBC 4.32 (4.10-5.20) X 10*6/uL Hgb 12.7 (12.0-15.0) g/dL Hct 39.5 (37.2-46.3) % Plt Count 184 (140-440) X 10*3/uL Comprehensive Metabolic Panel 11/14/21 Range/Units 05:40 Sodium 141 (135-145) mmol/L Potassium 4.3 (3.5-5.5) mmol/L Chloride 108 (96-109) mmol/L Carbon Dioxide 22.9 (20.0-27.5) mmol/L BUN 19.7 (9.0-27.0) mg/dL Creatinine 0.7 (0.6-1.5) mg/dL Glucose 122 H (70-110) mg/dL Calcium 8.9 (8.7-10.3) mg/dL Current Medications Generic Name Dose Route Start Last Admin Trade Name Freq PRN Reason Stop Dose Admin Hydrocodone Bitart/Acetaminophen 1 each 11/13/21 12:44 11/14/21 08:51 Hydrocodone/Apap 5-325mg 1 Each Tab PO 1 each Q6HR PRN Administration Pain Amlodipine Besylate 5 mg 11/14/21 09:00 11/14/21 08:51 Amlodipine 5 Mg Tab PO 5 mg QAM GIOVANNY Administration Budesonide/Formoterol Fumarate 2 puff 11/13/21 20:00 11/14/21 07:08 Symbicort 80-4.5 Mcg Inhaler INHALATION 2 puff RT-BID GIOVANNY Administration Buspirone HCl 15 mg 11/13/21 21:00 11/14/21 08:51 Buspirone Hcl 5 Mg Tab PO 15 mg BID GOIVANNY Administration Citalopram Hydrobromide 20 mg 11/13/21 17:30 11/13/21 16:48 Citalopram Hydrobromide 20 Mg Tab PO 20 mg AC-SUPPER GIOVANNY Administration Naloxone HCl 0.2 mg 11/13/21 09:41 Naloxone 0.4 Mg/Ml 1 Ml Vial IV Q2M PRN Opioid Reversal Olanzapine 10 mg 11/13/21 21:00 11/13/21 20:51 Olanzapine 10 Mg Tab PO 10 mg HS GIOVANNY Administration Intake and Output 11/13/21 11/14/21 11/14/21 22:59 06:59 14:59 Other: Voiding Method Toilet Toilet # Voids 0 2 11/14/21 05:40 11/14/21 05:40
--- NOTE | 2021-11-14 12:58 | CA ---
Stress Echo Report Yanira Vinson Age: 61 Gender: F : 1960 Exam Date: 11/14/2021 11:00 Exam Location: [facility] Ht (in): 73 Wt (lb): 209 Ordering Physician: Elias Grajeda DO Referring Physician: MARY,, Database Programmer: Lalito Hammer Technologist Procedure CPT: Indication: re: CP ICD-9 Codes: Rhythm: Patient History: Cardiac Medications: Medications in past 24 hours: Contrast: Stress Results Protocol: Farzad Total dose(mL): Exercise Duration (min:sec): Max ST Depression (mm): Angina Score: Jaeger Score: METS: 7.9 Resting HR: 70 Resting BP: 133 / 70 Peak HR: 156 Peak BP: 263 / 51 Max Predicted HR: 159 98 % Max Predicted HR Target HR: 135 Double Product: [id number] Stress Summary: BP Response: Reason for Termination: MAX EXERTION/TARGET HR Cardiac Symptoms: NO SYMPTOMS ECG Analysis Resting ECG: Stress ECG: Arrhythmia: Echo Analysis Resting Echo: Peak Echo Analysis: MEASUREMENTS (Male/Female) Normal Values CONCLUSIONS Patient underwent exercise stress echo with a Farzad protocol treadmill stress test. Patient exercised into Stage 2 for a total of 6 minutes 31 seconds reaching a total of 7.9 METS. Patient's maximum heart rate was 156 which represented 98 % age- predicted maximum heart rate. Stress EKG portion: At baseline patient's EKG showed normal sinus rhythm, normal axis, right bundle branch block, no significant ST or T wave abnormalities. At peak exercise, EKG showed no significant change from baseline. Stress echo portion: 2-D echocardiogram was performed in the parasternal long, personal short, apical 2 and apical four-chamber views at rest, peak exercise and in recovery. At baseline, echocardiogram showed left ventricular ejection fraction 55% without wall motion abnormalities. With peak exercise, echocardiogram shows improvement in left ventricular ejection fraction, increase contractility, decrease in left ventricular end systolic dimension without wall motion abnormalities consistent with a normal response to exercise. Conclusions: 1. Normal EKG and echo response to exercise without evidence of inducible ischemia. 2. Fair exercise capacity. 3. Normal left ventricular EF 55% Dr. Elias Grajeda DO (Electronically Signed) Final Date: 14 November 2021 12:57
--- NOTE | 2021-11-14 13:13 | CA ---
Transthoracic Echo Report Name: Yanira Vinson Age: 61 Gender: F : 1960 Exam Date: 11/14/2021 10:56 Exam Location: [place] [facility] Ht (in): Wt (lb): Ordering Physician: Elias Grajeda DO ([email or web address]) Attending/Referring Phys: Stock House Worker Yulissa Bruce, EDWIN Procedure CPT: Indications: re: CP Cardiac Hx: Technical Quality: Fair Contrast 1: Total Dose (mL): Contrast 2: Total Dose (mL): MEASUREMENTS (Male / Female) Normal Values 2D ECHO LV Diastolic Diameter PLAX 5.1 cm 4.2 - 5.9 / 3.9 - 5.3 cm LV Systolic Diameter PLAX 4.6 cm IVS Diastolic Thickness 1.2 cm 0.6 - 1.0 / 0.6 - 0.9 cm LVPW Diastolic Thickness 1.4 cm 0.6 - 1.0 / 0.6 - 0.9 cm LV Relative Wall Thickness 0.5 Thoracic Aorta Diameter 2.8 cm DOPPLER MV Area PHT 2.6 cm??? Mitral E Point Velocity 38.2 cm/s Mitral A Point Velocity 55.7 cm/s Mitral E to A Ratio 0.7 MV Deceleration Time 292.9 ms MV E' Velocity 8.0 cm/s Mitral E to MV E' Ratio 4.8 FINDINGS Left Ventricle Normal left ventricular size, wall thickness, left ventricular ejection fraction is estimated at 55%. Right Ventricle The right ventricle is normal in size and function. Right Atrium The right atrium is normal in size. Left Atrium The left atrium is normal in size. Mitral Valve Structurally normal mitral valve without significant stenosis or prolapse. There is mild mitral regurgitation. Aortic Valve Structurally normal aortic valve without significant sclerosis or stenosis. There is no aortic regurgitation. Tricuspid Valve Structurally normal tricuspid valve without significant stenosis. Pulmonary artery systolic pressure is normal. Pulmonic Valve Structurally normal pulmonic valve without significant stenosis. There is no pulmonic regurgitation. Pericardium Normal pericardium without effusion. Aorta Normal aortic root dimension. CONCLUSIONS Normal left ventricular ejection fraction 55% Mild mitral regurgitation No pericardial effusion Previewed by: Dr. Elias Grajeda DO (Electronically Signed) Final Date: 14 November 2021 13:12
[2021-11-14] MEDS ORDERED: HYDROcodone/APAP 5-325MG 1 EACH TAB PO STA (13:17)
[2021-11-14] MEDS: CITALOPRAM HYDROBROMIDE 20 MG TAB PO SCH (18:08)
--- NOTE | 2021-11-14 18:37 | XR ---
EXAMINATION TYPE: XR lumbar spine 2 or 3V DATE OF EXAM: 11/14/2021 COMPARISON: NONE HISTORY: Back pain TECHNIQUE: 3 views FINDINGS: The lumbar vertebrae have normal alignment. Posterior elements are intact. There is spurrin g of the endplates. Sacroiliac joints are intact. No compression fracture. IMPRESSION: Mild multilevel spondylotic changes. No fracture seen.
[2021-11-14] MEDS: OLANZapine 10 MG TAB PO SCH (19:55)
--- NOTE | 2021-11-14 20:41 | P.PN ---
Subjective 61-year-old pleasant female came in with compensative chest pain on the left side of the chest lasted for 5 minutes 7/10 in severity associated with lightheadedness denied any shortness of breath possible diaphoresis as well. Chest pain radiates to the right side of the chest and also to the mandible nausea. Chest pain is nonpruritic in nature not associated with food pressure- like sensation appears to be nonexertional patient had a stress test in 2019 patient denied any other cardiac history does have history of hypertension. Patient had nonspecific ST-T wave changes in the inferior leads and intraventricular conduction delay with a split QRS complex in the lateral leads. No previous EKG to compare with 11/14/2021 Patient today had no chest pain, she had normal ejection fraction of 55%, she has normal stress echo with no evidence of reversible ischemia and patient was cleared for discharge by counsel. However patient was also complaining of from right sciatica radiculopathy for the last 2-3 weeks, she did extra heavy jimbo b at her work and since then she has increasing pain with no significant weakness as patient states. Hemodynamically and vitals are stable. Number x- ray showing mild changes with no evidence of acute fracture. Physical therapy been consulted Orthopedic team consult also was placed for further evaluation Objective - Vital Signs Vital signs: Vital Signs Temp 97.6 F 11/14/21 08:46 Pulse 69 11/14/21 08:46 Resp 23 11/14/21 08:46 BP 137/82 11/14/21 08:46 Pulse Ox 96 11/14/21 01:56 FiO2 Intake & Output 11/13/21 11/14/21 11/14/21 18:59 06:59 18:59 Weight 94.801 kg Other: Voiding Method Toilet # Voids 2 3 - Exam GENERAL: The patient is alert and oriented x3, not in any acute distress. Well developed, well nourished. HEENT: Pupils are round and equally reacting to light. EOMI. No scleral icterus. No conjunctival pallor. Normocephalic, atraumatic. No pharyngeal erythema. No thyromegaly. CARDIOVASCULAR: S1 and S2 present. No murmurs, rubs, or gallops. PULMONARY: Chest is clear to auscultation, no wheezing or crackles. ABDOMEN: Soft, nontender, nondistended, normoactive bowel sounds. No palpable organomegaly. MUSCULOSKELETAL: No joint swelling or deformity. EXTREMITIES: No cyanosis, clubbing, or pedal edema. NEUROLOGICAL: Gross neurological examination did not reveal any focal deficits. SKIN: No rashes. no petechiae. - Labs CBC & Chem 7: 11/14/21 05:40 11/14/21 05:40 Labs: Abnormal Lab Results - Last 24 Hours (Table) 11/14/21 11/14/21 Range/Units 05:40 05:40 Immature Gran # 0.06 H (0.00-0.04) X 10*3/uL BUN/Creatinine Ratio 28.14 H (12.00-20.00) Ratio Glucose 122 H (70-110) mg/dL Assessment and Plan Assessment: right sciatica radiculopathy Chest pain resolved, and by counsel for discharge History of GERD Hyperlipidemia Hypertension history of asthma Plan: This is a pleasant 61 years old female who presents with chest pain which is resolved She has negative stress test and cleared by counsel for discharge with recommendation to follow up as an outpatient patient informed and she agrees consults orthopedic team Pain management she's on home dose of norco 5 Physical therapy evaluation Labs and medication were reviewed.. Continue same treatment. Continue with symptomatic treatment. Resume home medication. Monitor lytes and vitals. DVT and GI prophylaxis. Further recommendations as per clinical course of the patient DVT prophylaxis: Subcutaneous heparin GI Prophylaxis: Pepcid PT/OT: Pending Prognosis is guarded
[2021-11-14] MEDS: FAMOTIDINE 20 MG/2 ML VIAL IV SCH (21:02)
[2021-11-14] MEDS: HEPARIN SODIUM,PORCINE/PF 5,000 UNIT/0.5 ML SYRINGE SQ SCH (21:03)
[2021-11-15] MEDS: SYMBICORT 80-4.5 MCG INHALER INHALATION SCH (07:17)
[2021-11-15 07:30] VITALS: RESP 18
[2021-11-15] MEDS: FAMOTIDINE 20 MG/2 ML VIAL IV SCH (08:06)
[2021-11-15] MEDS: HYDROcodone/APAP 5-325MG 1 EACH TAB PO PRN ×2 (08:06→14:34)
[2021-11-15] MEDS: HEPARIN SODIUM,PORCINE/PF 5,000 UNIT/0.5 ML SYRINGE SQ SCH (08:06)
[2021-11-15] MEDS: busPIRone HCl 5 MG TAB PO SCH (08:07)
[2021-11-15] MEDS: amLODIPine 5 MG TAB PO SCH (08:08)
--- NOTE | 2021-11-15 08:22 | P.PN ---
Subjective HISTORY OF PRESENTING ILLNESS Patient is a pleasant 61-year-old female with history of asthma, hypertension, psychiatric disorders/schizophrenia, breast lumpectomy who presents secondary chest pain. She started having approximately 5 minutes of left sided chest pain over her left breast with some associated lightheadedness and shortness breath. She denies any similar episodes in the past. She was not doing anything at the time. She did take a nitroglycerin at home and states the pain slowly resided. She denies any cardiac history or prior stents. She did have previous stress test from December 2019 which showed no ischemia. She has been feeling well dressed the morning and denies any further chest pain or shortness breath. Blood work shows troponin normal 3, creatinine 0.67, hemoglobin 13.3. EKG shows sinus rhythm, normal axis, no significant ST or T wave abnormalities. 11/15 Patient seen and examined. Patient denies any further chest pain. She underwent an echo which showed normal EF 55% and mild mitral regurgitation and no other significant valvular disease. Additionally underwent stress echo which showed no inducible ischemia. She has been having pain with sciatica and undergoing physical therapy workup. PHYSICAL EXAMINATION Vital signs reviewed. CONSTITUTIONAL: No apparent distress. HEENT: Head is normocephalic. Pupils are equal, round. Sclerae anicteric. Mucous membranes of the mouth are moist. No JVD. No carotid bruit. CHEST EXAMINATION: Lungs are clear to auscultation. No chest wall tenderness is noted on palpation or with deep breathing. HEART EXAMINATION: Regular rate and rhythm. S1, S2 heard. No murmurs, gallops or rub. ABDOMEN: Soft, nontender. Positive bowel sounds. EXTREMITIES: 2+ peripheral pulses, no lower extremity edema and no calf tenderness. NEUROLOGIC EXAMINATION: Patient is awake, alert and oriented x3. ASSESSMENT 1. Atypical chest pain however was improved with nitroglycerin taken at home 2. Hypertension 3. Schizophrenia PLAN Atypical chest pain and echo unrevealing and stress echo showing no inducible ischemia. Patient's chest pain has improved. Patient is stable for discharge home with outpatient follow-up in one week. Objective - Vital Signs Vital signs: Vital Signs Temp 97.7 F 11/15/21 07:00 Pulse 74 11/15/21 07:00 Resp 18 11/15/21 07:00 BP 145/78 11/15/21 07:00 Pulse Ox 94 L 11/15/21 07:00 FiO2 Intake & Output 11/14/21 11/15/21 11/15/21 18:59 06:59 18:59 Other: Voiding Method Toilet # Voids 3 2 - Labs CBC & Chem 7: 11/14/21 05:40 11/14/21 05:40 Labs: Abnormal Lab Results - Last 24 Hours (Table) 11/14/21 11/14/21 Range/Units 05:40 05:40 Immature Gran # 0.06 H (0.00-0.04) X 10*3/uL BUN/Creatinine Ratio 28.14 H (12.00-20.00) Ratio Glucose 122 H (70-110) mg/dL
--- NOTE | 2021-11-15 13:19 | P.CNOR ---
History of Present Illness - [facility] Consult date: 11/15/21 Consult reason: low back pain History of present illness: Patient is a 61-year-old female who was admitted to [facility] with regards chest pain and further workup. Evaluated by both internal medicine and cardiology regarding this. Since being in the hospital, patient states that she has been having some right-sided low back pain and does trend down the right leg. She states she has been dealing with this for the last 2 or 3 weeks. Patient states that her work load at her current job has increased over the last month or so. Patient has been taking Tylenol at home with mild relief. Patient was evaluated at bedside, she is resting in her hospital bed. She appears to be no acute discomfort. She is taking [place] 5 mg/325 mg which seems to be helping with the pain. Patient denies any previous surgery involving the lumbar spine, thoracic spine or cervical spine. She denies any recent traumas, this including falls. Patient states that she has no assistive devices with ambulation. She states that she notices occasional weakness in the extremities but nothing that is consistent. Patient denies any loss of bowel or bladder control. She has been urinating with no difficulties. She states she does do with constipation. She denies any numbness or tingling in the bilateral lower extremities or bilateral upper extremities. Patient denies any santo weakness of the bilateral upper or lower extremities Review of Systems Constitutional: Reports as per HPI Past Medical History Past Medical History: Asthma, Cancer, GERD/Reflux, Hyperlipidemia, Hypertension, Pneumonia Additional Past Medical History / Comment(s): Right breast cancer with a previous lumpectomy/radiation treatments, 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, bronchial asthma, FAB with Cpap use, diverticular disease, hemorrhoids, chronic low back pain with R sided sciatica History of Any Multi-Drug Resistant Organisms: None Reported Past Surgical History: Breast Surgery, Hernia Repair, Hysterectomy Additional Past Surgical History / Comment(s): RIGHT BREAST LUMPECTOMY 2000; right-sided mouth resection 2000; septoplasty, colonoscopies/polypectomy, umbilical hernia repair. Past Anesthesia/Blood Transfusion Reactions: No Reported Reaction Additional Past Anesthesia/Blood Transfusion Reaction / Comm: Slow to wake Smoking Status: Never smoker - Past Family History Mother Family Medical History: No Reported History Father Family Medical History: Cancer Additional Family Medical History / Comment(s): COLON, ESOPHAGEAL CANCER. Medications and Allergies Home Medications Medication Instructions Recorded Confirmed Type OLANZapine [Olanzapine] 10 mg PO HS 07/01/14 11/13/21 History amLODIPine [Norvasc] 5 mg PO QAM 05/26/16 11/13/21 History Fluticasone Propion/Salmeterol 1 puff INHALATION RT-BID 09/09/19 11/13/21 History [Advair 250-50 Diskus] busPIRone HCl [Buspar] 15 mg PO BID 09/09/19 11/13/21 History cloNIDine HCL [Catapres] 0.2 mg PO BID 09/09/19 11/13/21 History Citalopram Hydrobromide [CeleXA] 20 mg PO AC-SUPPER 11/13/21 11/13/21 History Allergies Allergy/AdvReac Type Severity Reaction Status Date / Time coconut Allergy Unknown Unknown Verified 11/13/21 09:03 barley Allergy Unknown Verified 11/13/21 09:03 Childhood celery Allergy Vomiting Verified 11/13/21 09:03 gluten Allergy Swelling - Verified 11/13/21 09:03 throat house dust Allergy Swelling Verified 11/13/21 09:03 mold Allergy Swelling - Verified 11/13/21 09:03 throat pollen extracts Allergy Swelling - Verified 11/13/21 09:03 throat tree and shrub pollen Allergy Swelling Verified 11/13/21 09:03 wheat Allergy Swelling Verified 11/13/21 09:03 Beef Containing Products AdvReac Throat Verified 11/13/21 09:03 hurts & burgos rye AdvReac "Pneumonia" Uncoded 11/13/21 09:03 Physical Examination Gen: AOx3, NAD VSS stable at this time Integument: No open lesions, sores, areas of erythema involving the cervical, thoracic or lumbar spine Palpation: Patient demonstrates tenderness with palpation to the midline or paraspinal region of the cervical, thoracic or lumbar spine. She does demonstrate some discomfort along the SI joint on the right-hand side, she's nontender in the SI joint on the left-hand side ROM: Range of motion all major muscle groups of the bilateral upper and lower extremities, no focal deficits appreciated Sensory Exam: Senory exam to light touch is intact C5-T1 Senosry exam to light touch is intact L2-S1 Motor: 55 strength is appreciated in the bilateral upper extremities with shoulder elevation, shoulder abduction, elbow extension, elbow flexion, wrist extension, wrist flexion, astronaut mission specialist strength 5/5 strength is appreciated in the lower extremities with hip flexion flexion, knee extension, plantar flexion, dorsiflexion left, EHL, FHL 4/5 strength appreciated in the right lower extremity with dorsiflexion Reflexes: 2/4 in all UE and LE Negative Briseyda's bilaterally Negative Babinski bilaterally Negative clonus bilaterally Special Test: Logroll maneuver reproduces no pain in the groin of the bilateral lower e xtremities Straight leg raise does reproduce pain on the right-hand side, straight leg raise of the left lower extremity does reproduce pain in the right Results - Labs Labs: H & H 11/13/21 11/14/21 Range/Units 07:51 05:40 Hgb 13.3 12.7 (11.4-16.0) gm/dL Hct 40.1 39.5 (34.0-46.0) % Coagulation 11/13/21 Range/Units 07:51 INR 0.9 (<1.2) Result Diagrams: 11/14/21 05:40 11/14/21 05:40 - Diagnostic results Lumbar AP/lateral x-ray: report reviewed, image reviewed (No fractures noted involving the lumbar vertebrae. Spondylosis with disc space narrowing noted at L5-S1) Assessment and Plan Assessment: Spondylosis L5-S1 SI joint pain Sciatica Other medical comorbidities Plan: I was able to discuss the case, this to include both physical exam findings and imaging studies with my attending Dr. Shultz. No emergent orthopedic surgical intervention recommended at this time. Pain control, recommend use of an anti-inflammatory with low dose muscle relaxant. Could consider possibility of a Medrol Dosepak discharged to help her symptoms. Patient states that the current pain medication is helping with her symptoms Weight-bear as tolerated Recommending follow-up in the outpatient setting for further evaluation/treat ment We'll consider outpatient physical therapy, this including home exercise program Other medical specialty recommendations Please contact our service there are any further questions regarding this patient Time with Patient: Less than 30
[2021-11-15 14:14] VITALS: BP 119/66; PULSE 82; TEMP 98.2
[2021-11-15] MEDS ORDERED: DEXAMETHASONE SOD PHOSPHATE 10 MG/ML 1 ML VIAL IVP STA (14:25)
--- NOTE | 2021-11-16 00:40 | P.DS ---
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 Patient chest pain has resolved completely since yesterday. she had normal ejection fraction of 55%, she has normal stress echo with no evidence of reversible ischemia and patient was cleared for discharge by maintenance of way foreman. However patient was also complaining of from right sciatica radiculopathy for the last 2-3 weeks, she did extra heavy job at her work number x-ray showing no significant abnormality, mild degenerative changes. Orthopedic team evaluated the patient and they cleared her for discharge and follow-up as an outpatient, patient informed and agrees. per recommendation patient is discharged on NSAIDs, ibuprofen 3 days and Medrol dosepak. Physical therapy recommended home with outpatient physical therapist which is ordered Patient was cleared for discharge by both cardiology and orthopedics teams Problems and management plan were discussed with the patient and he verbalized understanding and acceptance Patient was found stable and can be discharged home however he needs follow-up as an outpatient. Patient was instructed to follow up with PCP Dr. Anderw within one week and patient agrees Physical exam Gen: patient is a AAOx3, no distress CVS: S1-S2, RRR, no murmur Lungs: B/L CTA, no wheezing Abdomen: soft, no distention, no tenderness, positive bowel sounds Extremity: no leg edema or induration Time spent more than 35 minutes Patient Condition at Discharge: Stable Plan - Discharge Summary Discharge Rx Participant: No New Discharge Prescriptions: New Ibuprofen [Motrin] 400 mg PO Q6HR PRN 3 Days #12 tab PRN Reason: Pain Control methylPREDNISolone [Medrol Dose Pack] 0 mg PO DIRECTED #1 packet Famotidine [Pepcid] 20 mg PO DAILY 10 Days #10 tablet Continue OLANZapine [Olanzapine] 10 mg PO HS amLODIPine [Norvasc] 5 mg PO QAM cloNIDine HCL [Catapres] 0.2 mg PO BID Fluticasone Propion/Salmeterol [Advair 250-50 Diskus] 1 puff INHALATION RT- BID busPIRone HCl [Buspar] 15 mg PO BID Citalopram Hydrobromide [CeleXA] 20 mg PO AC-SUPPER Discharge Medication List OLANZapine [Olanzapine] 10 mg PO HS 07/01/14 [History] amLODIPine [Norvasc] 5 mg PO QAM 05/26/16 [History] Fluticasone Propion/Salmeterol [Advair 250-50 Diskus] 1 puff INHALATION RT-BID 09/09/19 [History] busPIRone HCl [Buspar] 15 mg PO BID 09/09/19 [History] cloNIDine HCL [Catapres] 0.2 mg PO BID 09/09/19 [History] Citalopram Hydrobromide [CeleXA] 20 mg PO AC-SUPPER 11/13/21 [History] Famotidine [Pepcid] 20 mg PO DAILY 10 Days #10 tablet 11/15/21 [Rx] Ibuprofen [Motrin] 400 mg PO Q6HR PRN 3 Days #12 tab 11/15/21 [Rx] methylPREDNISolone [Medrol Dose Pack] 0 mg PO DIRECTED #1 packet 11/15/21 [Rx] Follow up Appointment(s)/Referral(s): Elias Grajeda DO [STAFF PHYSICIAN] - 1 Week (The office will call you to set up an appointment ) Aguilar Andrew DO [Primary Care Provider] - 1-2 days Rick Shultz DO [Doctor of Osteopathic Medicine] - 12/03/21 2:00 pm Patient Instructions/Handouts: Chest Pain (DC), Low Back Strain (GEN) Activity/Diet/Wound Care/Special Instructions: Heart healthy diet Activity is restricted till you see your doctor Discharge/Stand Alone Forms: Work/School Release Discharge Disposition: HOME SELF-CARE
== END 2021-11-15 15:40 | disposition home health service (06) ==
LOC: EC 07:38 → 6NMEDSUR 09:49
PROVIDERS: ADMIT Internal Medicine; ATTEND Internal Medicine
DX: R07.89 Other chest pain (principal); M47.27 Other spondylosis with radiculopathy, lumbosacral region; M53.3 Sacrococcygeal disorders, not elsewhere classified; K21.9 Gastro-esophageal reflux disease without esophagitis; E78.5 Hyperlipidemia, unspecified; I10 Essential (primary) hypertension; J45.909 Unspecified asthma, uncomplicated; F32.A Depression, unspecified; F20.9 Schizophrenia, unspecified; R73.03 Prediabetes; G47.33 Obstructive sleep apnea (adult) (pediatric); Z79.899 Other long term (current) drug therapy; Z85.3 Personal history of malignant neoplasm of breast
CPT/HCPCS: 96372 ×2; 96374; 96375; 96376; 99285; 36415; 94640 ×4; 93005; 93306; 93351; 97162; 80053; 80048; 83690; 83735; 84484; 85025 ×2; 85610; 85730; 72100; 71046; G0378 ×3; J1100; J1644 ×2

== ENCOUNTER → 2021-12-31 | Outpatient (CLI) | payer BC ==
[2021-12-31 14:32] VITALS: BP 95/60; PULSE 69; RESP 18; TEMP 98.3
--- NOTE | 2021-12-31 14:50 | P.PAINPG ---
PQRS Measure Charge Sheet Comment: HISTORY OF PRESENT ILLNESS: 61 yr old female as a referral from presents today w severe and chronic LBP secondary to DDD, spondylosis, BL sacroiliitis, facet arthropathy without myelopathy for evaluation. Pt states her pain level is currently at 3/10 in intensity, constant, localized in the lower lumbar spine where it meets the tailbone, sharp in character w shooting towards . Pain is provoked when walking/ standing for periods of 15 min or more. Pain is alleviated w PT x 4 wks in 2021, heat, ice, chiropractic treatments x 3 wks w last visit in August 2021, meds ([place], Lyrica, Muscle Relaxer), topicals, repositioning and rest. PMH: Asthma, Breast CA, GERD, Hyperlipidemia, HTN, Pneumonia, FAB PSH: R Breast Lumpectomy/ Radiation (2000), Oral CA Resection (2000), Septoplasty, Umbilical Hernia Repair, EGD/ Colonoscopies w Polypectomy, Hysterectomy SH: Never smoker, No ETOH abuse, No illicit drug use FH: Mo- No Reported History. Fa- Colon CA/ Esophageal CA. All: See list Meds: See list REVIEW OF ORGAN SYSTEMS: CONSTITUTIONAL: No fevers or chills. No recent weight loss. NEUROLOGICAL: + numbness and tingling along the distal extremities. No seizure disorders or headaches. MUSCULOSKELETAL: + pain PSYCHIATRIC: Denies current depression or suicidal thoughts. Physical Examinations : Constitutional : Cooperative , not in acute distress . Neurologic : Cranial nerve II to XII intact. No focal neurological deficits. Psychiatric : alert & oriented x 3. Matching mood & appropriate affect. Judgment & insight intact. Musculoskeletal : Cervical Spine Motor strength in the deltoid and biceps: Normal right side. Normal Left side Motor strength biceps and the wrist extensors: Normal right side . Normal left side Motor strength in the triceps muscle: Normal right side. Normal left side Deep tendon reflexes: Normal at the biceps. Normal at Brachioradialis. Normal at triceps Vertebral body tenderness to deep palpation over Cervical facet loading test: positive bilaterally Spurling test: positive bilaterally Neck distraction test: positive bilaterally Briseyda sign: positive bilaterally Lumbar spine Motor strength lower extremities ,thigh and legs 5/5 Right side , 5/5 Left side Deep tendon reflexes : Normal Knee Jerk. Normal Ankle Jerk Vertebral body tenderness over Lumbar facet Loading Test: positive Right / positive Left Range of motion of the lumbar spine Flexion 30 degrees, extension 10 degrees Straight Leg Raise test: Left/ Right positive at degree Aravind test: positive right / positive left. Severe tenderness over the Sacroiliac joint on the Right / Left sides Gaenslen test: positive bilaterally Seated flexion test: positive bilaterally. Sacral spine : Severe tenderness over the Sacroiliac joint: right side / left side Range of motion: Flexion of the lumbar spine <60 degrees Range of motion: Extension of the lumbar spine <20 degrees Gaenslen's Test positive on the R Aravind test: positive right side / left side R Thigh Thrust Test Sacral Thrust Test R Imaging: X-ray of the lumbar spine and pelvis from 12/03/21 reviewed Assessment/ Plan : R Sacroiliitis Recommendation of R SI injection. May need a series of injections, up to 4 within a 12 mo period, for optimal pain relief. Risks, benefits of procedure discussed and patient verbalized understanding. Denies aspirin or anti- coagulant use or medical history of diabetes. Protocol for discontinuation/ continuation of medications juanito procedure discussed. All questions answered. I have spent greater than 30 minutes on patient care today. Dr Singleton was available by phone for the evaluation of this patient. The time was used to review the medical records including relevant urine studies and Prescription history (MAPs), review of the available imaging, evaluation and examination of the patient, coordination of care with the medical staff and if applicable referring physicians, as well as creation of the medical record PQRS Narrative: Smoking Status Never smoker Home Medications: Ambulatory Orders OLANZapine [Olanzapine] 10 mg PO HS 07/01/14 amLODIPine [Norvasc] 5 mg PO QAM 05/26/16 Fluticasone Propion/Salmeterol [Advair 250-50 Diskus] 1 puff INHALATION RT-BID 09/09/19 busPIRone HCl [Buspar] 15 mg PO BID 09/09/19 cloNIDine HCL [Catapres] 0.2 mg PO BID 09/09/19 Citalopram Hydrobromide [CeleXA] 20 mg PO AC-SUPPER 11/13/21 Famotidine [Pepcid] 20 mg PO DAILY 10 Days #10 tablet 11/15/21 Ibuprofen [Motrin] 400 mg PO Q6HR PRN 3 Days #12 tab 11/15/21 methylPREDNISolone [Medrol Dose Pack] 0 mg PO DIRECTED #1 packet 11/15/21 Controlled Substance Measures - Controlled Substance Measures Is patient prescribed a controlled substance at discharge?: No
== END | disposition home or self-care (01) ==
LOC: PNWHC3 13:40
PROVIDERS: ATTEND Specialist
DX: M46.1 Sacroiliitis, not elsewhere classified (principal)
CPT/HCPCS: 99211

== ENCOUNTER → 2022-01-01 | Outpatient (CLI) | payer BC ==
--- NOTE | 2022-01-02 07:57 | MR ---
EXAMINATION TYPE: MR lumbar spine wo con DATE OF EXAM: 01/01/2022 4:22 PM COMPARISON: None. CLINICAL INDICATION:Female, 61 years old with history of M47.896 OTHER SPONDYLOSIS, LUMBAR REGION; TECHNIQUE: Multi planar, multi sequence imaging was performed utilizing: T1-weighted, T2-weighted, a nd turbo inversion recovery imaging of the lumbar spine. IV Contrast: None FINDINGS: Alignment: The lumbar vertebral bodies have preserved heights and alignment. Cord: The conus medullaris and the distal spinal cord appear unremarkable with regards to their signa l intensity and morphology. Right S3 perineural cyst noted. Bones/Discs: Bone signal is grossly unremarkable. There is no evidence of bony edema on the inversion recovery sequences. Multilevel degenerative disc disease is noted and most pronounced at the L5-S1. Intervertebral disc signal is maintained. L1-L2: No significant disc pathology. Spinal canal is patent. The neural foramen are patent. L2-L3: Disc bulging with facet joint arthropathy results in mild spinal canal stenosis. The neural fo ramen are mildly narrowed bilaterally. L3-L4: Right facet joint synovial cyst measuring 7 x 8 mm which effaces the cauda equina more mediall y. The neural foramen and spinal canal are patent. No significant disc pathology. L4-L5: Disc bulging and facet arthropathy result in mild to moderate spinal canal stenosis and mild b ilateral neural foraminal stenosis. L5-S1: Right foraminal/subarticular disc protrusion with effacement of the forming right nerve in the thecal sac. There is mild spinal canal stenosis. The neural foramen are mild to moderately narrowed bilaterally. Other findings: Scattered clonic diverticula are present. IMPRESSION: 1. L5-S1 right foraminal/subarticular disc herniation which effaces the forming right nerve. 2. L3-L4 right facet joint synovial cyst which mildly displaces the cauda equina medially. 3. L4-L5 mild to moderate spinal canal stenosis.
== END | disposition home or self-care (01) ==
LOC: RADMRIMAIN 15:21
PROVIDERS: ATTEND Family Medicine
DX: M47.896 Other spondylosis, lumbar region (principal)
CPT/HCPCS: 72148

== ENCOUNTER → 2022-02-05 | Outpatient (CLI) | payer BC | END | disposition home or self-care (01) | LOC: LABPAT 12:44 | PROVIDERS: ATTEND Orthopaedic Surgery | DX: Z01.812 Encounter for preprocedural laboratory examination (principal); Z22.322 Carrier or suspected carrier of Methicillin resistant Staphylococcus aureus; M51.26 Other intervertebral disc displacement, lumbar region | CPT/HCPCS: 87070 ==

== ENCOUNTER 2022-02-11 09:51 | Observation (INO) | payer BC ==
[2022-02-06 09:42] VITALS: BMI 28.3
--- NOTE | 2022-02-11 06:26 | P.HPOR ---
History of Present Illness H&P Date: 02/04/22 .T:Title: *[facility] LENGTH OF VISIT: 11-22 minutes Patient consents to treatment over the phone Date of :[birth year] Age: 61 year Height: 6'1" Weight: 209 lbs BMI: 27.57 kg/m2 Occupation: Disabled VAS: 5 CHIEF COMPLAINT: *pre-operative recheck DOI: Approx 3 months DOS: N/A Duration of current treatment regiment: 10 weeks TREATMENTS COMPLETED: 6 weeks of PT completed? Month and Year of last PT date? Yes, She has attended 12 sessions and reports no improvement, exacerbates symptoms. Physician directed home exercise completed? yes, Patient has trialed the physician directed home exercise program with slight relief of their symptoms. Medications yes List: Motrin, Tylenol without relief. Pt currently on Morphine with moderate improvements to her symptoms. Tizanidine without relief. Alternative interventions Chiropractic: No Massage therapy:yes, w/o relief R.I.C.E: No Brace: No Injections No RFA: No SUBJECTIVE: Today Ms. Vinson presents via phone call regarding a pre-operative review of the planned lumbar L3-4 (15081) Laminectomy, partial medial facetectomy and foraminotomy; L5-S1 RIGHT sided microdiscectomy. Since the time of the last appointment the patient denies any changes to her symptoms. Overall she notes continued debility and is ready to proceed with the planned surgery. Furthermore the patient reports that she has failed to improve with all abovementioned treatment modalities and denies trialing any new treatments since the last appointment. Otherwise the patient denies any f/c/sob/cp, no bladder or bowel retention/incontinence, no perineal numbness/tingling, and ambulates independently. HPI: Ms. Vinson was last seen on 01/11/2022 regarding their low back pain. Since the time of the last appointment the patient reports increased, sharp low back pain into the right buttock and lower extremity. Furthermore the patient reports continues to deny any numbness or tingling about the lower extremities. Overall the patient has seen a progressive increase in symptoms since their onset. Ms. Vinson symptoms are exacerbated with laying in bed as well as any standing or ambulation, due to this they notes that it is increasingly difficult for Ms. Vinson to complete many of their daily tasks. Patient is having severe sleep disturbances as well due to their ongoing pain and associated symptoms. Regarding treatments, the patient has previously trialed all abovementioned treatment modalities without relief. Patient denies trialing any other modalities at this time. For their symptoms, the patient has been taking Tizanidine without relief and was placed on an oral course of Morphine by her primary care with moderate improvements to her pain temporarily. Otherwise the patient denies any f/c/sob/cp, no incision concerns, no bladder or bowel retention/incontinence, no perineal numbness/tingling, and ambulates ind ependently. Ms. Vinson was last seen on 01/10/2022 regarding her low back pain and MRI results. Her mother is present in exam room. Patient continues to describe a general ache with intermittent sharp pain in her low back that radiates into her right buttock and into the lateral region of her right leg and across to the top of her right foot. Patient denies any numbness tingling to bilateral lower extremities and denies groin pain area patient states that her symptoms are exacerbated when laying in bed and that her pain is decreased with ambulation. since her last visit patient has completed physical therapy without relief of her symptoms. Patient reports taking morphine is the only way her pain is manageable. Otherwise, patient denies any f/c/sob/cp, no bladder or bowel retention/incontinence, no perineal numbness/tingling, and ambulates independently. Ms. Vinson was last seen on 12/03/21 regarding an evaluation of low back pain. Patient describes a dull ache in her lower back that radiates into her right buttock and right lower extremity. Her symptoms have been present for approximately 5 weeks, with these symptoms patient has had difficult time performing her daily tasks. Patient denies any numbness tingling to bilateral lower extremities and denies groin pain area patient states that her symptoms are exacerbated when laying in bed and that her pain is decreased with ambulation. Patient is having severe sleep disturbances. Patient is currently trialing home exercise program and physical therapy, she denies any improvement. Patient has only attended 2 sessions of PT and plans on continuing with treatment. Otherwise, patient denies any f/c/sob/cp, no bladder or bowel retention/incontinence, no perineal numbness/tingling, and ambulates independently. Social History: DEL Obtained Reviewed, see appropriate section of the chart for details. P3 Social History: Smoking: never a smoker P3 Alcohol: rare alcohol P3 P3 Family History: DEL Obtained Reviewed, see appropriate section of the chart for details. INSERT FAMILY HISTORY P2 Past Medical History: DEL obtained Reviewed, see appropriate section of the chart for details. INSERT PAST MEDICAL HISTORY Current Medications: DEL none P1 Current Medications: Rx: busPIRone 15 mg tablet Ref: 0 Rx: cloNIDine Ref: 0 Rx: OLANZapine 10 mg tablet Ref: 0 Rx: morphine Ref: 0 Rx: albuterol sulfate 0.63 mg/3 mL solution for nebulization Ref: 0 Rx: apple cider vinegar 500 mg tablet Ref: 0 Rx: ascorbate calcium (vitamin C) 500 mg tablet Ref: 0 Rx: citalopram 20 mg tablet Ref: 0 Rx: Combivent Respimat 20 mcg-100 mcg/actuation solution for inhalation Ref: 0 Rx: fluticasone 250 mcg-salmeteroL 50 mcg/dose blistr powdr for inhalation Ref: 0 Rx: Norvasc 5 mg tablet Ref: 0 Rx: SEE SCANNED LIST FOR ADDTL SUPPLEMENTS , Ref: 0 Rx: tiZANidine 4 mg capsule Ref: 0 Rx: Vitamin D3 125 mcg (5,000 unit) tablet Ref: 0 Rx: Zinc-15 Ref: 0 Rx: ZyrTEC 10 mg capsule Ref: 0 P1 NO PHYSICAL EXAM PERFORMED RADIOGRAPHIC STUDIES: XRay (5 views) taken on 12/03/21 at [facility]: L4-5 Grade I spondylolistheis. L4-5 and L5-S1 spondylosis with foraminal stenosis. Facet elongation at L5-S1 with facet arthrosis L4-S1. Segmental flattening of lordosis at L5-S1 secondary to disc collapse anteriorly. No fracture. No lesions. PI: 56 LL: 42 AP pelvis shows congruent level pelvis w/o fracture MRI scan from 01/01/2022 of [facility]: Images Reviewed in office with the patient. L1-2 Spondylosis with ligamental hypertrophy, mild stenosis central L2-3 Large facet cyst RHS causing moderate central stenosis and exiting and traversing nerve displacement. Moderate spondylotic changes at this level L3-4 Spondylosis with stenosis due to facet hypertrophy and ligamental hypertrophy, no instability noted L4-5 Spondylosis with moderate to severe stenosis secondary to disc collapse, facet arthrosis and ligamental hypertrophy, no instability L5-S1 Severe spondylosis with disc collapse, disc herniation and bulging causing central and foraminal stenosis. b/l face arthropathy with hypertrophy and ligamental hypertrophy causing stenosis Alignment: PI: NA LL: 55 deg Coronal alignment: Maintained Fracture: None Lesion: None IMPRESSION AND PLAN: It was my pleasure to have seen and examined Yanira. I reviewed the patient's clinical syndrome, physical findings, and imaging studies during the appointment today. It is my impression that the patient has a diagnosis of. 1. L5-S1 herniated nucleus pulposus 2.L3-L4 right side facet cyst 3. right lower extremity radiculopathy 4. right lower extremity weakness I outlined the natural course history without intervention and various interventional options. Based on my findings I suggest the following course of action: -I discussed treatment options with the patient, including operative and non- operative options, and they have elected to proceed with the following surgical procedure: lumbar L3-4 (45839) Laminectomy, partial medial facetectomy and foraminotomy; L5-S1 RIGHT sided microdiscectomy (60569) The indications, risks, benefits, and alternatives to surgery were discussed with the patient and family at length. Specifically (but not limited to) the risks of infection, stiffness, recurrence of symptoms, need for revision surgery , local numbness, neurovascular injury, and blood clots were discussed. The patient's questions were answered. The decision to proceed was made. Consent will be obtained for the procedure. -Advised patient to continue with supplements, health maintenance, and home exercise programs. Patient expressed understanding and will continue with these modalities. Spine Surgery Risk Review Ms. Vinson is presenting for evaluation of low back pain. It was my pleasure to have seen and examined Ms. Vinson. In our visit today we have had a chance to go over subjective complaints, physical examination findings and treatments including the natural course history without intervention and various interventional options. The patients imaging demonstrates: 3 view XRay taken on 12/03/21 of [facility] and Pelvis: L4-5 Grade I spondylolisthesis. L4-5 and L5-S1 spondylosis with foraminal stenosis. Facet elongation at L5-S1 with facet arthrosis L4-S1. Segmental flattening of lordosis at L5-S1 secondary to disc collapse anteriorly. No fracture. No lesions. PI: 56 LL: 42 AP pelvis shows congruent level pelvis w/o fracture MRI scan from01/01/2022 of [facility] Spine: Images Reviewed in office with the patient. L1-2 Spondylosis with ligamental hypertrophy, mild stenosis central L2-3 Large facet cyst RHS causing moderate central stenosis and exiting and traversing nerve displacement. Moderate spondylotic changes at this level L3-4 Spondylosis with stenosis due to facet hypertrophy and ligamental hypertrophy, no instability noted L4-5 Spondylosis with moderate to severe stenosis secondary to disc collapse, facet arthrosis and ligamental hypertrophy, no instability L5-S1 Severe spondylosis with disc collapse, disc herniation and bulging causing central and foraminal stenosis. b/l face arthropathy with hypertrophy and ligamental hypertrophy causing stenosis Alignment: PI: NA LL: 55 deg Coronal alignment: Maintained Fracture: None Lesion: None On physical exam, Ms. Vinson demonstrates restricted lumbar range of motion along with a positive Forton's finger on the right side. Additionally the patient reports L4-S1 dermatomal deficit regarding the right lower extremity. I have explained to the patient that as their condition progresses it will cause further neurological deficits and eventual paralysis. Based on the patients imaging, physical exam, and the rapid progression and disabling nature of their symptoms, at this time I recommend surgery in the form or a: lumbar (L3-L4, L5-S1) Laminectomy with right side microdiskectomy and facetectomy . I discussed the risk and benefits of this procedure at length with Ms. Vinson. The patient [significant other] agreed to considered pursuing the procedure abovementioned. Prior to surgery, she should follow up with her PCP (Cardio, ID, IM etc) for clearance. Questions were invited and answered, and the patient wishes to proceed as outlined below. Currently, I am recommendin.lumbar L3-4 (64129) Laminectomy, partial medial facetectomy and foraminotomy; L5-S1 RIGHT sided microdiscectomy (25839) 2.Follow up with PCP for surgical clearance 3.Review of surgical risks and benefits as well as an educational packet on the proposed surgical procedure. Risks: All surgical procedures come with inherent risks, including those related to positioning, anesthesia, intraoperative findings, and postoperative complications. It is important to understand that surgery does not come with any guarantee of a successful outcome as complications and adverse events are always possible. The patient was given a handout in office today discussing the surgical procedure and risks associated with the intervention, both of which were discussed with the patient. These risks include but are not limited to the following: * Experiencing same, different or even worse symptoms in back, neck, arms, or legs compared to before surgery. Requiring further surgery or other forms of treatment presently or at some time in the future at same or other levels of the intended spine surgery. On an extreme but fortunately relatively rare basis severe complication such as blindness, stroke, heart attack, temporary and/or permanent nerve injury, paralysis, coma, or may occur, sometimes without known explanation. Surgical complications may include but are not limited to risk of infection, fluid accumulation in the surgical dissection site, including a seroma or hematoma, that requires additional surgery, wound drainage, bleeding, new numbness or weakness, vision changes/loss, spinal fluid leakage, non-healing and/or infected incision, headaches, difficulty or inability to swallow, hoarseness, hemopneumothorax, pneumothorax, impotence, retrograde ejaculation, vaginal dryness; injury to nerves, spinal cord, blood vessels, lymphatics or other vital organs (i.e., bowel injury, injury to the great vessels); heterotopic bone formation; complications related to the hardware such as screws, rods, cages including misplaced hardware, device failure, instrumentation at the wrong spine level, hardware fracture/breakage, or hardware loosening; vertebral failure of the spinal column above or below the newly placed hardware; retained surgical instrumentations or devices and the need for further surgery. * Medical risks of the planned spine surgery include but are not limited to generalized Infections to the whole body or local areas outside of the surgical site (sepsis), heart attack, bleeding, anaphylaxis, meningitis, seizure, epilepsy, hearing loss, burn hansen, laceration of the head or other areas of the body, bruising, hypersensitivity of the skin, bladder over distension; allergic reaction; shoulder injury related to positioning; fat, blood and air clots to other areas of the body like heart, lungs, brain; failure of internal organs such as lungs, kidneys, liver and excessive bleeding. If blood transfusions are necessary, note that transfusions may cause intolerance reactions such as anaphylaxis or other complex reactions. Despite best efforts, the results of spine surgery might not heal in terms of bone, soft tissues such as skin, fascia, ligaments, and joints. Additionally, in order to achieve best possible results, spine surgery may be carried out beyond the initially planned levels and involve decompression, fusion including insertion of hardware at levels other than the original intended area of surgical interest change some portions of the procedure in order to ensure the best possible outcomes. With spine surgery and spinal fusion, there are different off label uses of instrumentation (devices, implants and hardware) as well as biological substances (bone morphogenic proteins, demineralized bone matrix) as well as using extra bone from allograft sources (i.e. cadaver bone) or autograft (iliac crest bone, ribs, or the spine itself). The patient has been given information about these practices and their inherent risks and benefits. [facility] is an educational center that serves as a training facility for neurosurgical and orthopedic IRONWORKER and Nursing students. Physician assistants are medically trained surgical providers who function in the outpatient, inpatient, and operating room setting under the direct supervision of the attending surgeon. [facility] has multiple operating rooms with single and overlapping rooms running daily. They currently function under the required guidelines as produced by the [facility] Finance Committee with regards to the overlapping rooms and will continue to comply with changes to this policy as they occur. The requirements include and are complied with as follows: (1) the critical portions of the overlapping rooms will not occur at the same time, (2) the attending physician will be physically present during the critical portions of the procedure and immediately available during the entire case, and (3) a back-up attending is designated should the primary attending not be immediately available. The patient has had a chance to review all the listed information, has been given print outs detailing this information, and has had all his/her questions answered to their satisfaction. It was my pleasure to have seen and examined Ms. Vinson. In our visit today we have had a chance to go over my understanding of our patient's current condition, the natural course history without intervention and various interventional options. Questions were invited and answered, and the patient wishes to proceed as outlined above. I have seen and examined the patient for 25 minutes and we have spent more than 50% of the time in repeat and detailed counseling about the patient's condition, its natural course history with out and as much as can be predicted with surgery and re-review of various surgical treatment options. In conclusion, Ms. Vinson requested we proceed with the above suggested surgery and are willing to accept risks and limitations of the suggested surgery as nature of the disease process and our best attempts at treatment for the condition. Thank you again for allowing us to be part of your patient's care. Please don't hesitate to contact me if you have any further questions. Signed and authenticated by: FOLLOW UP: Follow-up: YESSICA Post procedure 1month 6wks 3 months 6 months 1 year Patient Education (Informational booklet, instructions, etc) given at today's appointment: YESSICA Yes .ED:Patient Education: Y Plan at next visit: YESSICA xip xop X-ray oop Medications Reviewed: yes In our visit today Ms. Vinson and I have had a chance to go over my understanding of the patient's current condition, the natural course history without intervention and various interventional options. Questions were invited and answered, and the patient wishes to proceed as outlined above. I will be sure to keep you updated afterMs. Vinson returns here for further follow-up. Thank you again for your referral. Please do not hesitate to contact me if you have any further questions. Signed and authenticated by: Rick Caro [facility] [address] [place] [address] This message is confidential, intended only for the named recipient(s) and may contain information that is privileged or exempt from disclosure under applicable law. If you are not the intended recipient(s), you are notified that the dissemination, distribution or copying of this information is strictly prohibited. If you received this message in error, please notify the sender then delete this message. Patient verbalizes understanding of the information discussed. 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 Prediabetes. CPAP use. Macular Telangiectasia. History of Any Multi-Drug Resistant Organisms: None Reported Past Surgical History: Breast Surgery, Hernia Repair, Hysterectomy Additional Past Surgical History / Comment(s): RIGHT BREAST LUMPECTOMY, right- sided mouth resection. Past Anesthesia/Blood Transfusion Reactions: No Reported Reaction Additional Past Anesthesia/Blood Transfusion Reaction / Comment(s): Slow to wake up from anesthesia. Past Psychological History: Anxiety, Depression, Schizophrenia Smoking Status: Never smoker Past Alcohol Use History: Rare Past Drug Use History: None Reported - Past Family History Mother Family Medical History: No Reported History Father Family Medical History: Cancer Additional Family Medical History / Comment(s): COLON AND ESOPHAGEAL CANCER. Medications and Allergies Home Medications Medication Instructions Recorded Confirmed Type OLANZapine [Olanzapine] 10 mg PO HS 07/01/14 02/06/22 History amLODIPine [Norvasc] 5 mg PO QAM 05/26/16 02/06/22 History Fluticasone Propion/Salmeterol 1 puff INHALATION BID 09/09/19 02/06/22 History [Advair 250-50 Diskus] busPIRone HCl [Buspar] 15 mg PO BID 09/09/19 02/06/22 History cloNIDine HCL [Catapres] 0.1 mg PO BID 09/09/19 02/06/22 History Citalopram Hydrobromide [CeleXA] 20 mg PO AC-SUPPER 11/13/21 02/06/22 History Morphine Sulfate 15 mg PO TID 02/06/22 02/06/22 History Allergies Allergy/AdvReac Type Severity Reaction Status Date / Time coconut Allergy Unknown Unknown Verified 02/06/22 09:42 barley Allergy Unknown Verified 02/06/22 09:42 Childhood celery Allergy Vomiting Verified 02/06/22 09:42 gluten Allergy Swelling - Verified 02/06/22 09:42 throat house dust Allergy Swelling Verified 02/06/22 09:42 mold Allergy Swelling - Verified 02/06/22 09:42 throat pollen extracts Allergy Swelling - Verified 02/06/22 09:42 throat tree and shrub pollen Allergy Swelling Verified 02/06/22 09:42 wheat Allergy Swelling Verified 02/06/22 09:42 Beef Containing Products AdvReac Throat Verified 02/06/22 09:42 hurts & burgos rye AdvReac "Pneumonia" Uncoded 02/06/22 09:42 Physical Examination Osteopathic Statement: *. No significant issues noted on an osteopathic structural exam other than those noted in the History and Physical/Consult.
[~2022-02-11 09:51] MED LIST changes: +ACETAMINOPHEN TAB 500 MG TAB PO PRN; +GABAPENTIN 300 MG CAP PO PRN; +GENTAMICIN 40 MG/ML 2 ML VIAL ONE; -LACTATED RINGERS 1,000 ML IV SCH; +ONDANSETRON 4 MG/2 ML VIAL IVP PRN; +SODIUM CHLORIDE 0.9% IRRIG 3,000 ML BAG IRRIGATION ONE; +TRANEXAMIC ACID IN NACL,ISO-OS 1,000 MG in SALINE 1 100ML.BAG IVPB PRN
[2022-02-11 10:43] LABS: Glucose,Whole Blood 130 mg/dL (70-110)
[2022-02-11] MEDS ORDERED: LACTATED RINGERS 1,000 ML IV ONE ×3 (10:44)
[2022-02-11] MEDS ORDERED: fentaNYL (PF) 50 MCG/ML 2 ML AMP ONE (12:03)
[2022-02-11] MEDS ORDERED: ROCURONIUM 10 MG/ML (5 ML VIAL) IV ONE (12:03)
[2022-02-11] MEDS ORDERED: SUCCINYLCHOLINE CHLORIDE 200 MG/10 ML VIAL IV ONE (12:03)
[2022-02-11] MEDS ORDERED: NEOSTIGMINE 1 MG/ML 10 ML VIAL ONE (12:03)
[2022-02-11] MEDS ORDERED: MIDAZOLAM 2 MG/2 ML VIAL ONE (12:03)
[2022-02-11] MEDS ORDERED: TRANEXAMIC ACID IN NACL,ISO-OS 1,000 MG/100 ML BAG ONE (12:03)
[2022-02-11] MEDS ORDERED: LIDOCAINE 2% INJ 20 MG/ML (2 ML VIAL) ONE (12:03)
[2022-02-11] MEDS ORDERED: PROPOFOL 10 MG/ML 20 ML VIAL IV ONE (12:03)
[2022-02-11] MEDS ORDERED: HYDROmorphone (PF) 1 MG/ML ONE (12:03)
[2022-02-11] MEDS ORDERED: GLYCOPYRROLATE 0.2 MG/ML 2 ML VIAL ONE (12:03)
[2022-02-11] MEDS ORDERED: GENTAMICIN 80 MG in SODIUM CHLORIDE 0.9% 500 ML 3,000 ML IRRIGATION ONE (13:04)
[2022-02-11] MEDS ORDERED: ceFAZolin 3,000 MG in SODIUM CHLORIDE 0.9% IRRIGATIO 3,000 ML IRRIGATION ONE (13:04)
[2022-02-11] MEDS ORDERED: GELATIN SPONGE,ABSORB (LARGE) 1 EACH SPONGE TOPICAL ONE (13:05)
[2022-02-11] MEDS ORDERED: THROMBIN (BOVINE) 5,000 UNIT VIAL TOPICAL ONE (13:05)
[2022-02-11] MEDS ORDERED: VANCOMYCIN 1,000 MG VIAL MISCELLANE ONE (14:31)
[2022-02-11] MEDS ORDERED: HYDROcodone/APAP 5-325MG 1 EACH TAB PO PRN (14:54)
[2022-02-11] MEDS ORDERED: SENNOSIDES-DOCUSATE SODIUM 1 EACH TAB PO PRN (14:54)
[2022-02-11] MEDS ORDERED: HYDROmorphone 0.5 MG/0.5 ML SYRINGE IVP ONE ×3 (14:58→15:37)
--- NOTE | 2022-02-11 15:37 | FL ---
EXAMINATION TYPE: FL guidance operating room, XR lumbar spine 2 or 3V DATE OF EXAM: 02/11/2022 CLINICAL HISTORY: Low back pain. TECHNIQUE: Fluoroscopy. Intraoperative 2 views lumbar spine COMPARISON: MRI lumbar spine January 01, 2022 FINDINGS: Fluoroscopic guidance was provided during lumbar laminectomy procedure performed by Dr. Waqar lopez . A total of 15 seconds of fluoroscopic time was utilized during the procedure and 8 spot i mages was acquired. Intraoperative images obtained show advancement of surgical hardware at the lumbosacral junction from posterior approach. IMPRESSION: As Above.
[2022-02-11] MEDS: ACETAMINOPHEN TAB 325 MG TAB PO SCH ×2 (19:06→23:26)
[2022-02-11] MEDS ORDERED: DEXAMETHASONE SOD PHOSPHATE 4 MG/ML 1 ML VIAL IV ONE (19:52)
[2022-02-11] MEDS ORDERED: METOCLOPRAMIDE 5 MG/ML 2 ML VIAL IVP PRN (19:52)
[2022-02-11] MEDS ORDERED: LIDOCAINE 1% (10MG/ML) FOR IV START INTRADERMA PRN (19:52)
[2022-02-11] MEDS ORDERED: HYDROmorphone 0.5 MG/0.5 ML SYRINGE IVP PRN (19:52)
[2022-02-11] MEDS: HYDROmorphone 0.5 MG/0.5 ML SYRINGE IVP PRN ×2 (19:54→23:28)
[2022-02-11] MEDS: LACTATED RINGERS 1,000 ML IV SCH (20:28)
[2022-02-12] MEDS: HYDROmorphone 0.5 MG/0.5 ML SYRINGE IVP PRN ×4 (02:59→19:53)
[2022-02-12] MEDS: HYDROcodone/APAP 10-325MG 1 EACH TAB PO PRN ×2 (05:23→13:07)
[2022-02-12] MEDS: ACETAMINOPHEN TAB 325 MG TAB PO SCH ×4 (05:23→23:33)
[2022-02-12] MEDS: HYDROmorphone 1 MG/ML 1 ML SYRINGE IVP PRN ×2 (06:24→23:34)
--- NOTE | 2022-02-12 11:01 | P.PN ---
Subjective Progress Note Date: 02/12/22 patient seen and examined she is doing okay today. She had some nausea overnight. Denies any headaches change in vision or blurry vision. Denies any fevers chills shortness of breath or chest pain at this time. Denies any other symptoms at this time. She is having some back pain as well. Objective - Vital Signs Vital signs: Vital Signs Temp 99.5 F 02/12/22 04:20 Pulse 109 H 02/12/22 04:20 Resp 16 02/12/22 04:20 BP 127/79 02/12/22 04:20 Pulse Ox 94 L 02/12/22 04:20 FiO2 Intake & Output 02/11/22 02/12/22 02/12/22 18:59 06:59 18:59 Intake Total 1662 Output Total 100 2 Balance 1562 -2 Weight 95.8 kg Intake: IV 1602 Intake, IV Titration 60 Amount Lactated Ringers 1,000 ml 60 @ 0 mls/hr IV .[facility] Rx#:[id number] Output: Urine 50 2 Estimated Blood Loss 50 Other: # Voids 1 - Exam Physical Exam: -Patient is alert and oriented 3 appears well-nourished well-hydrated is in no acute distress. They do not appear septic. -There is TTP About the incision site no hematoma [-Incision is CDI, no EEE, no drainage] -Upper extremities show [5] out of 5 strength in all major muscle groups. -Lower extremities with [5] out of 5 strength in all major muscle groups except right lower extremity where she still has some weakness in hip flexion and plantar flexion dorsiflexion is 4+. -There is [FROM] that is [painless] of the b/l UE and LE in all major joints. Negative straight leg raise -They are intact to light touch sensation in C5 to T1 and L2 to S1 nerve distribution. -DTR [2]/4 all upper and lower extremities -Patient has palpable distal pulses all 4 ext -Compartments are soft and compressible. -Patient shows a negative Tonia's [-Neg Hoffmans b/l] [-Neg Clonus b/l] [-Neg babinski b/l] Cranial nerves II through XII are grossly intact. Assessment and Plan Assessment: 61-year-old female postop day 1 L3-L4 decompression laminectomy and L5-S1 decompression with microdiscectomy Plan: -Appreciate heritage consultant and team management. -Activity: Ambulate QID, OOB all meals, up and about, limit lifting bending twisting to less than 5 lbs. Use walker or cane if needed for stability. -Daily PT/OT, increase ambulation strength and balance. - no braces needed -Pain control: [Adequate at this time] -Meds: [reviewed] -GI ppx: senna, Miralax -DC steen when up and about, bedside commode if needed -DVT PPX: mechanical -Hygiene: Shower today. Maintain dressing clean and dry. Meticulous cleaning after BMs away from incision site -Encourage IS 10x/hr -Dispo: [ discharged home today with home health care
--- NOTE | 2022-02-12 12:57 | P.DS ---
Providers Date of admission: 02/11/22 23:48 Expected date of discharge: 02/12/22 Attending physician: Rick Shultz DO Primary care physician: Aguilar Kamran [facility] 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 They underwent appropriate preoperative care and were willing to undergo the intended procedure. They underwent a successful L3-L4, L5-S1 laminectomy with right discectomy, were recovered appropriately and sent to the floor. While on the floor they worked with physical therapy, occupational therapy and nursing to enhance their recovery experience. Their pain was well controlled through their stay and they were started on appropriate medications, DVT ppx modalities, activity and dietary needs. Daily labs were monitored closely, and transfusions were only used when necessary. Medicine as well as other consulting services have made their input and have helped with our team approach and multidisciplinary care. PT milestones have been met and passed and they have made the recommendation of home with homecare for this patient and treating providers agree with this care path. The patient will be discharged home with appropriate medications, instructions and follow-up information and in stable condition. Patient Condition at Discharge: Good Plan - Discharge Summary Discharge Rx Participant: Yes New Discharge Prescriptions: New cefaDROXiL [Duricef] 500 mg PO Q12HR 5 Days #10 cap Sennosides/Docusate Sodium [Senna-S 8.6-50 mg Tablet] 1 each PO DAILY #20 tablet Gabapentin 300 mg PO TID 30 Days #90 cap HYDROcodone/APAP 10-325MG [[place] 10-325] 1 tab PO Q6HR PRN #27 tab PRN Reason: Pain Cyclobenzaprine [Flexeril] 5 mg PO TID #20 tablet No Action OLANZapine [Olanzapine] 10 mg PO HS amLODIPine [Norvasc] 5 mg PO QAM cloNIDine HCL [Catapres] 0.1 mg PO BID Fluticasone Propion/Salmeterol [Advair 250-50 Diskus] 1 puff INHALATION BID busPIRone HCl [Buspar] 15 mg PO BID Citalopram Hydrobromide [CeleXA] 20 mg PO AC-SUPPER Morphine Sulfate 15 mg PO TID Discharge Medication List OLANZapine [Olanzapine] 10 mg PO HS 07/01/14 [History] amLODIPine [Norvasc] 5 mg PO QAM 05/26/16 [History] Fluticasone Propion/Salmeterol [Advair 250-50 Diskus] 1 puff INHALATION BID 09/09/19 [History] busPIRone HCl [Buspar] 15 mg PO BID 09/09/19 [History] cloNIDine HCL [Catapres] 0.1 mg PO BID 09/09/19 [History] Citalopram Hydrobromide [CeleXA] 20 mg PO AC-SUPPER 11/13/21 [History] Morphine Sulfate 15 mg PO TID 02/06/22 [History] Cyclobenzaprine [Flexeril] 5 mg PO TID #20 tablet 02/11/22 [Rx] Gabapentin 300 mg PO TID 30 Days #90 cap 02/11/22 [Rx] HYDROcodone/APAP 10-325MG [[place] 10-325] 1 tab PO Q6HR PRN #27 tab 02/11/22 [Rx] Sennosides/Docusate Sodium [Senna-S 8.6-50 mg Tablet] 1 each PO DAILY #20 tablet 02/11/22 [Rx] cefaDROXiL [Duricef] 500 mg PO Q12HR 5 Days #10 cap 02/11/22 [Rx] Follow up Appointment(s)/Referral(s): [facility], [NON-STAFF] - 1-2 Days Aguilar Andrew DO [Primary Care Provider] - 02/18/22 2:15 pm Rick Shultz DO [Doctor of Osteopathic Medicine] - 03/01/22 10:30 am Patient Instructions/Handouts: Laminectomy (DC) Activity/Diet/Wound Care/Special Instructions: Spine Discharge and Recovery Instructions dressing may be removed on 02/15/2022. May shower over incision. Do not soak incision in tub, pool, hot tub etc. Date of Surgery: 02/11/2022 Diagnosis: L5-S1 herniated nucleus pulposus; L3-L4 right-sided facet cyst; right lower extremity radiculopathy; right lower extremity weakness Procedure: L3 to L4 laminectomy; partial medial facetectomy and foraminotomy; L5-S1 right- sided microdiscectomy Medications: See medication list All medication refills should be obtained through your primary care doctor or your clinic spine surgeon. Please discuss prescription refills at your follow up appointment. Do not call the hospital for medication refills. Dressing: Leave your dressing in place for a total of 5 days post operatively. Then you may remove your dressing and leave open to air. Keep the area clean and if not able to keep area clean, then cover with sterile gauze and tape. Showering: You may shower 3 days after your procedure allowing soap and water to run over incision. Do not scrub. Do not soak. Blot dry. Follow up: Please confirm a follow up appointment with your surgeon 3 weeks post operatively. Please make an appointment to follow up with your PCP in 1-2 weeks after surgery for evaluation 3 phase, 3-week plan POST OP WEEKS 1-3 1. Lifting/carrying/pushing/pulling limited to less than 5 pounds. 2. Do not sit for longer than 15 minutes at one time. Get up and walk around. Prolonged sitting is NOT advised. If you lay down, see if you can tolerate laying down on you front (belly side) 3. Walk for periods of 15 minutes = 1 mile but no longer; do it multiple times times each day. 4. Ice your low back after activity. POST OP WEEKS 3-6 1. Lifting limited to less than 20 pounds. 2. Do not sit for longer than 30 minutes at a time. Frequently change positions. Use a sit-to stand workstation or take frequent breaks from sitting if you have returned to work. 3. Walk for 30 minutes each day. If possible, do these three or more times a day POST OP WEEKS 6+ At your 6-week appointment we will give you a physical therapy referral to focus on a core stabilization and strengthening program. You should also work on leg & buttock strengthening, hamstring & quadriceps stretching, and continue a low impact aerobic activity program such as swimming, walking, or riding a stationary bicycle. During the initial 6 weeks after your surgery, you are at the highest risk of re-injuring your spine. You should generally avoid BLTs (bending, lifting and twisting combination motions) and follow the above guidelines to reduce the chance of reinjury. You can anticipate post op appointments in our office at approximately 3 weeks and 6 weeks after your surgery. INCISION CARE: If your incision is not draining you do NOT need to cover it with a dressing. Keep your incision clean, dry and intact. In most cases, we apply skin glue, kandace or sutures to the incision at the time of surgery. This will be like a crust or have the appearance of a scab and will fall off in time on its own. The stitches or kandace need to be removed at 3 weeks post op appointment. You may begin to shower 3 days after surgery (this allows the glue to person well). However, please avoid scrubbing the incision site or peeling off any of the skin glue. This will ensure optimal healing of your incision. Also, during this time avoid soaking the incision area in water - this includes swimming pools, hot tubs or baths. No ointments, lotions or oils on the incision until your surgeon allows. Leave kandace, sutures or glue in place. Neurological dysfunction that comes on suddenly can also be a sign of a stroke. Below some common symptoms of a stroke are listed: B - balance difficulty such as sudden onset walking or leaning to one side - NEW E - eye problem such as sudden double vision or trouble seeing on one side - NEW F - Facial weakness or numbness on one side - NEW A - Arm or leg weakness or numbness on one side - NEW S - Slurred speech or difficulty with word finding - NEW T - Time is BRAIN! Call 911 as soon as you recognize these symptoms Diet: Consume a regular diet rich in vegetables and lean protein such as chicken or fish. You should consume in a ratio of approximately 20% fats|40% carbohydrates|40%protein. Vegetables, sweet potatoes, brown rice or quinoa are examples of good carbohydrates. Chips, white bread, cookies and sweets/sugar are examples of bad carbohydrates. Limit your bad carbs, go wild with good carbs. "Life's Simple 7" Guidelines as per [place] [employer] These will help you reclaim your life after surgery and electrician helper powerhouse in your recovery, keeping in mind your restrictions. (1) Get Active. Physical activity can help people lose weight, control high blood pressure and cholesterol, feel emotionally better, and sleep better. (2) Control Cholesterol. Avoid a diet high in saturated fat, trans fat, & cholesterol. Limit whole milk & cream, ice cream, butter, egg yolks, processed meats (like sausage and hot dogs), and fatty meats. Choose healthy foods that are low in saturated fat, trans fat and cholesterol which include: Fruits and vegetables, fiber rich grain products (like whole grain pasta and brown rice), lean meat such as chicken, fish, nuts, seeds, and legumes. (3) Eat Better. Eat small portions. Shop at the grocery with a list and do not stray from it. Tips for a healthy diet include: Limit sodium intake to less than 1500mg daily, avoid prepackaged, processed, and fast foods, choose a diet rich in fruits, vegetables, and whole grain, high fiber foods, and limit saturated & cholesterol in your diet. (4) Manage Blood Pressure. If you have high blood pressure, you should have a cuff at home so that you can check your blood pressure regularly. Be sure you have a good cuff. An arm one is generally better than a wrist one. Bring the cuff to a doctor's appointment to validate that the measurements that your cuff are taking are accurate. Take your blood pressure twice daily when you are sitting down and relaxing. Record the numbers in a log and bring this log with you to your doctors' appointments. (5) Lose Weight if your BMI is above 25. A healthy BMI is between 19-25. To calculate Your BMI, you may use a Standard BMI Calculator on the NIH BMI websit e: <www.nhlbi.nih.gov/guidelines/obesity/BMI/bmicalc.htm>. Weigh oneself daily. If you are overweight, set a goal to lose weight. A pound a week loss if needed is a good target. (6) Reduce Blood Sugar. Limit foods and liquids with "added sugars." (Added sugars include sucrose, fructose, glucose, maltose, dextrose, high fructose corn syrup, corn syrup, concentrated fruit juice and honey). (7) Stop Smoking. If you smoke, quitting smoking is one of the best things that you can do for your health. Smoking increases your risk of heart attack, stroke, and peripheral vascular disease, which is a build-up of plaque in your arteries. Please discard all the cigarettes and lighters in your house. Have a plan for what you will do when you have the urge to smoke. Direct and second-hand smoke shortens your life as well as the lives of your family, friends and others around you. For your health and the health of those around you, please consider quitting! Proper Bending Body Mechanics: Maintain a wide stance with one foot slightly in front of the other. Keep your back straight. Bend utilizing the strength in your hips and knees. Do not bend at the waist. Maintain the lifted object at your waist-level close to your body. Avoid lifting weight that causes immediately pain or pain anywhere in the body afterwards. Smoking/Nicotine If there was ever one thing that you could do to increase your overall health, decrease your risk of cardiovascular problems by about 39% the second you make the choice, it is to STOP SMOKING. Your body's most instant gratification is the second you stop smoking. We have all heard the studies, read the articles but it is true, smoking is extremely bad for your overall health, and moreover it is detrimental to your bone health. Nicotine, IN ANY FORM, kills bone cells, prevents your body from healing fractures, and significantly prolongs healing after surgery. In spine surgery specifically, it increases your risk of not healing your bones to create a fusion and increases your risk of having a revision surgery due to this up to 60%. I know it is hard. I know it feels impossible. But there are ways. Take control of your life. We are here to help you through it. And when you are ready, ask us and we can direct you to help if you desire. Use the START Plan to Quit Smoking (please visit the Helpguide.org website listed below for more information): S = Set a quit date. Choose a date within the next 2 weeks, so you have enough time to prepare without losing your motivation to quit. If you mainly smoke at work, quit on the weekend, so you have a few days to adjust to the change. T = Tell family, friends, and co-workers that you plan to quit. Let your friends and family in on your plan to quit smoking and tell them you need their support and encouragement to stop. Look for a quit randall who wants to stop smoking as well. You can help each other get through the rough times. A = Anticipate and plan for the challenges you'll face while quitting. Most people who begin smoking again do so within the first 3 months. You can help yourself make it through by preparing ahead for common challenges, such as nicotine withdrawal and cigarette cravings. R = Remove cigarettes and other tobacco products from your home, car, and work. Throw away all your cigarettes (no emergency pack!), lighters, ashtrays, and matches. Wash your clothes and freshen up anything that smells like smoke. Shampoo your car, clean your drapes and carpet, and steam your furniture. T = Talk to your doctor about getting help to quit. Your doctor can prescribe medication to help with withdrawal and suggest other alternatives. If you can't see a doctor, you can get many products over the counter at your local pharmacy or grocery store, including the nicotine patch, nicotine lozenges, and nicotine gum. Resources for Quitting Smoking: <https://www.[place].gov/documents/[facility]/Quit_Tobacco_Resources_for_patients_313 480_7.pdf> Supplementation: Take recommended dosages of Vitamin D and Calcium to help fortify your bones and help them to heal. See your health maintenance packet for dosages and recommended levels. DVT/VTE prophylaxis: You will be given compression stockings from the hospital. Wear these daily for the first two weeks after surgery. You may take them off at night. You may be prescribed a medication to help thin your blood. Take this as directed. If you are not prescribed this medication, early and frequent ambulation has been shown to be the best prophylaxis to deep vein thrombosis and sequelae related to this event. Discharge Disposition: HOME WITH HOME HEALTH SERVICES
--- NOTE | 2022-02-12 14:20 | P.PN ---
Progress Note - Text Progress Note Date: 02/12/22 Patient is discharged today, she is having quite a bit of pain and requiring IV pain medication. Patient does take morphine at home. We will try Percocet 7.5 mg/325 mg. We'll hold discharge for today with the hope for discharge tomorrow. We'll reassess on 02/13/2022.
[2022-02-12] MEDS: oxyCODONE-APAP 7.5-325MG 1 EACH TAB PO PRN ×2 (16:26→22:10)
[2022-02-12] MEDS: GABAPENTIN 300 MG CAP PO SCH ×2 (16:30→20:04)
[2022-02-12] MEDS ORDERED: CITALOPRAM HYDROBROMIDE 20 MG TAB PO SCH (17:30)
[2022-02-12] MEDS: CYCLOBENZAPRINE 5 MG TAB PO PRN (17:42)
[2022-02-12] MEDS: LACTATED RINGERS 1,000 ML IV SCH (18:29)
[2022-02-12] MEDS: SYMBICORT 80-4.5 MCG INHALER INHALATION SCH (19:42)
[2022-02-12] MEDS: cloNIDine HCL 0.1 MG TAB PO SCH (20:04)
[2022-02-12] MEDS: busPIRone HCl 5 MG TAB PO SCH (20:04)
[2022-02-12] MEDS ORDERED: OLANZapine 10 MG TAB PO SCH (21:00)
[2022-02-13] MEDS: HYDROmorphone 0.5 MG/0.5 ML SYRINGE IVP PRN (04:01)
[2022-02-13] MEDS: oxyCODONE-APAP 7.5-325MG 1 EACH TAB PO PRN (04:43)
[2022-02-13] MEDS: CYCLOBENZAPRINE 5 MG TAB PO PRN (04:43)
[2022-02-13 05:23] VITALS: RESP 18
[2022-02-13] MEDS: ACETAMINOPHEN TAB 325 MG TAB PO SCH (06:00)
[2022-02-13 07:24] LABS: Glucose,Whole Blood 149 mg/dL (70-110)
[2022-02-13 07:27] VITALS: BP 148/82; PULSE 84; TEMP 98.1
[2022-02-13] MEDS: SYMBICORT 80-4.5 MCG INHALER INHALATION SCH (07:51)
[2022-02-13] MEDS: GABAPENTIN 300 MG CAP PO SCH (08:24)
[2022-02-13] MEDS: busPIRone HCl 5 MG TAB PO SCH (08:25)
[2022-02-13] MEDS: cloNIDine HCL 0.1 MG TAB PO SCH (08:25)
--- NOTE | 2022-02-13 08:38 | P.PN ---
Subjective Progress Note Date: 02/13/22 Principal diagnosis: Lumbar Spine HNP Patient seen and examined this morning. Patient was resting in bed. Patient denies any pain at this time. States that her pain is managed on current regimen. Surgical dressing is clean dry and intact. Nurse pediatric physician assistant states patient has been up with walker ambulating in hallway last night, tolerating well. Patient will be discharged home today with home care. She has been afebrile, denies nausea/vomiting, or chest pain. Objective - Vital Signs Vital signs: Vital Signs Temp 98.1 F 02/13/22 07:26 Pulse 84 02/13/22 07:26 Resp 18 02/13/22 07:26 BP 148/82 02/13/22 07:26 Pulse Ox 92 L 02/13/22 07:26 FiO2 Intake & Output 02/12/22 02/13/22 02/13/22 18:59 06:59 18:59 Intake Total 120 Balance 120 Intake: Oral 120 Other: # Voids 6 1 - Exam Physical Examination General: The patient is awake and alert, in no acute distress Skin: Skin is warm and dry with no obvious rashes or lesions. Hairy patches absent, no dorsal skin dimples, no cafe au lait spots. Surgical incision to the lumbar spine, Dressing CDI Eye: Pupils are equal, round and reactive to light, extra-ocular movements are intact; there is normal conjunctiva bilaterally. Neck: The neck is supple, there is no tenderness and ROM intact. Cardiovascular: There is a regular rate and rhythm. No murmur, rub or gallop is appreciated. Respiratory: Lungs are clear to auscultation, respirations are non-labored, breath sounds are equal. Gastrointestinal: Soft, non-distended, non-tender abdomen. Back: There is no tenderness to palpation in the midline, paralumbar, parathoracic or buttocks region. There is no obvious deformity . Musculoskeletal: ROM limited secondary to pain and stiffness from surgical procedure. Muscle strength in all major muscle groups of bilateral upper extremities 5/5, bilateral lower extremities 4/5. Neurological: CN 2-12 intact. There are no obvious motor or sensory deficits. Movement and coordination equal and intact. Sensory exam to light touch intact C5-T1 and intact from L2-S1. Reflexes 2/4 in bilateral upper and lower extremities. Negative Hoffmans, babinski, and clonus signs. Psychiatric: Cooperative, appropriate mood & affect, normal judgment. - Labs Labs: Abnormal Lab Results - Last 24 Hours (Table) 02/13/22 Range/Units 07:22 POC Glucose (mg/dL) 149 H (70-110) mg/dL Assessment and Plan Assessment: postop day 2 L3-L4 decompression laminectomy and L5-S1 decompression with microdiscectomy Plan: Plan: -Appreciate senior treasury consultant and team management. -Activity: Ambulate QID, OOB all meals, up and about, limit lifting bending twisting to less than 5 lbs. Use walker or cane if needed for stability. -Daily PT/OT, increase ambulation strength and balance. -Pain control: Adequate at this time -Meds: reviewed -GI ppx: senna, Miralax -DVT PPX: heparin -Hygiene: Shower today. Maintain dressing clean and dry. Meticulous cleaning after BMs away from the incision site -Encourage IS 10x/hr -Dispo: Anticipate discharge home today with homecare *I reviewed and discussed this case with my attending Dr. Shultz, whom has reviewed this chart and films and is in agreement with assessment and plan of care as outlined above. I have personally seen and examined the patient, performed the documentation and the assessment and plan as written. Number of minutes spent on the visit: 20m.
[2022-02-13] MEDS ORDERED: CYCLOBENZAPRINE 10 MG TAB PO SCH (09:00)
[2022-02-13] MEDS ORDERED: amLODIPine 5 MG TAB PO SCH (09:00)
--- NOTE | 2022-02-13 11:20 | P.OP ---
Date of Procedure: 02/11/22 Preoperative Diagnosis: 1. L3-4 lef facet cyst with severe stenosis 2. LLE radiculopathy 3. L5-S1 HNP with Left stenosis 4. LE weakness Postoperative Diagnosis: 1. L3-4 lef facet cyst with severe stenosis 2. LLE radiculopathy 3. L5-S1 HNP with Left stenosis 4. LE weakness Procedure(s) Performed: 1. L3-4 unilateral laminectomy, partial medial faceteomy and foraminotomy (12960) 2. L5-S1 laminotomy, partial medial faceteomy with microdiscectomy (93515/59) Implants: None Anesthesia: GETA Surgeon: Rick Shultz Topographical Field Assistant #1: Henrique Silva (Was present and assisted in all aspects of the case) Estimated Blood Loss (ml): 100 IV fluids (ml): 1,000 Urine output (ml): 150 Pathology: none sent Condition: stable Disposition: PACU Indications for Procedure: Ms. Vinson is presenting for evaluation of low back pain. It was my pleasure to have seen and examined Ms. Vinson. In our visit today we have had a chance to go over subjective complaints, physical examination findings and treatments including the natural course history without intervention and various interventional options. The patients imaging demonstrates: 3 view XRay taken on 12/03/21 of Lumbar Spine and Pelvis: L4-5 Grade I spondylolisthesis. L4-5 and L5-S1 spondylosis with foraminal stenosis. Facet elongation at L5-S1 with facet arthrosis L4-S1. Segmental fla ttening of lordosis at L5-S1 secondary to disc collapse anteriorly. No fracture. No lesions. PI: 56 LL: 42 AP pelvis shows congruent level pelvis w/o fracture MRI scan from01/01/2022 of Lumbar Spine: Images Reviewed in office with the patient. L1-2 Spondylosis with ligamental hypertrophy, mild stenosis central L2-3 Large facet cyst RHS causing moderate central stenosis and exiting and traversing nerve displacement. Moderate spondylotic changes at this level L3-4 Spondylosis with stenosis due to facet hypertrophy and ligamental hypertrophy, no instability noted L4-5 Spondylosis with moderate to severe stenosis secondary to disc collapse, facet arthrosis and ligamental hypertrophy, no instability L5-S1 Severe spondylosis with disc collapse, disc herniation and bulging causing central and foraminal stenosis. b/l face arthropathy with hypertrophy and ligamental hypertrophy causing stenosis Alignment: PI: NA LL: 55 deg Coronal alignment: Maintained Fracture: None Lesion: None On physical exam, Ms. Vinson demonstrates restricted lumbar range of motion along with a positive Forton's finger on the right side. Additionally the patient reports L4-S1 dermatomal deficit regarding the right lower extremity. I have explained to the patient that as their condition progresses it will cause further neurological deficits and eventual paralysis. Based on the patients imaging, physical exam, and the rapid progression and disabling nature of their symptoms, at this time I recommend surgery in the form or a: lumbar (L3-L4, L5-S1) Laminectomy with right side microdiskectomy and facetectomy . I discussed the risk and benefits of this procedure at length with Ms. Vinson. The patient [significant other] agreed to considered pursuing the procedure abovementioned. Prior to surgery, she should follow up with her PCP (Cardio, ID, IM etc) for clearance. Questions were invited and answered, and the patient wishes to proceed as outlined below. Currently, I am recommendin.lumbar L3-4 (10971) Laminectomy, partial medial facetectomy and foraminotomy; L5-S1 RIGHT sided microdiscectomy (62833) Description of Procedure: The patient was seen and examined in the preoperative area. All preoperative protocols were followed. Informed consent was obtained risks and benefits of the procedure were discussed at length. Risks including bleeding infection d amage to the surrounding tissue and risk of reoperation were discussed with the patient. Risk of anesthesia up to and including was a discussed with the patient. These are outlined in the risk review. They were willing to accept these risks and all of the risks of surgery. The patient was given a weight- based dose of antibiotics in the form of 2 g Ancef. The patient was seen and evaluated by the anesthesia team who deemed them fit for surgery. The site was marked, the patient was willing to proceed with the procedure. The patient was transferred to the operative suite by the Department of anesthesia. They were then drifted off to sleep by the department anesthesia and GETA was performed. The patient tolerated this well. [Landaverde catheter was placed by nursing staff, atraumatically]. Once confirmation of lines and ventilation the patient was transferred to a [prone Kirk table very carefully]. All bony prominences including wrists, elbows, axilla, chest, hips, and thighs, and feet were padded very well. Special attention was paid to the genitalia and these were padded accordingly. SCDs were placed on bilateral lower extremities and were connected. Arms were well padded and placed [on arm boards up and out in the 90/90 position]. Once in position, again we confirmed good ventilation capabilities and that lines were running appropriately. The patient's lumbar spine was then exposed. 1010s were placed outlining the incision site. Standard alcohol was used to clean the incision site and allowed to dry. C-arm was used to biomark the patient and confirm level for incision which was marked with a skin marker. Operative briefing was performed with all teams and everyone in agreement to proceed. The patient was then prepped and draped in a normal sterile fashion. Timeout was then performed and all parties were in agreement with the procedure to be performed. midline skin incision was made over the previously marked. Dissection taken down to the fascia which was identified and cleaned with a Stephens. We then performed unilateral takedown at L3-L4 subperiosteal dissection taken out over the facet joints of L3-L4 we confirmed our position with a [place] 4 placed at the pars of 3 with a lateral fluoroscopic image which confirmed level for operation. We then performed unilateral laminotomy partial medial facetectomy and foraminotomies using a high-speed bur and Kerrison rongeurs. We encountered a facet cyst at L3-L4 and removed it. We carefully teased off the dura and performed foraminotomies at this level to decompress the posterior lateral recess as well as the exiting and traversing nerve roots. These were decompressed entirely and were stable. Meticulous hemostasis was performed. Sánchez turned attention to L5-S1 where through a separate fascial incision a unilateral takedown on the right-hand side was performed subperiosteal dissection taken down over the lamina and facet joints of L5-S1 which were identified and cleaned. Unilateral laminotomy was then performed with partial medial facetectomy using high-speed bur and Kerrison rongeur the dura was carefully mobilized medially and protected with a nerve root protector. We then performed microdiscectomy in this portion with a knife followed by micropituitary. The disc was somewhat of a disc osteophyte complex and so a down-biting curet was used to push disc osteophyte complex anteriorly into the disc space and was then removed. Any free fragments were removed. The disc was irrigated thoroughly. Meticulous hemostasis was performed. The exiting traversing nerve roots were decompressed completely. We then irrigated the wound thoroughly with normal sterile saline 3 L. Again meticulous hemostasis performed. There was a small rent in the dura at L5-S1 and some Tisseel was placed over this. There was no CSF leak. we then placed Surgicel over the dura. We then proceeded with layered closure first in the fascial layer with #1 PDS followed by the deep subcu layer with 0 Vicryl. 2-0 Vicryl was placed and superficial subcu tissue and 3-year-old strata fix was placed in the skin. Strata fix glue tape was then used on the skin after it was cleaned this was then glued and allowed to dry with and placed Telfa 4 x 4 and Tegaderm over this. The patient was transferred back to their hospital bed atraumatically. Patient was then awakened and extubated by the department of anesthesia having tolerated the procedure very well with no complications. They were transferred to the postoperative care unit in stable condition.
[2022-02-13] MEDS ORDERED: oxyCODONE-APAP 7.5-325MG 1 EACH TAB PO SCH (12:00)
== END 2022-02-13 12:12 | disposition home health service (06) ==
LOC: OR 09:51 → 5NMEDONC 14:47 → OR 23:48
PROVIDERS: ADMIT Orthopaedic Surgery; ATTEND Orthopaedic Surgery
DX: M47.817 Spondylosis without myelopathy or radiculopathy, lumbosacral region (principal); M48.07 Spinal stenosis, lumbosacral region; M51.27 Other intervertebral disc displacement, lumbosacral region; R53.1 Weakness; J45.909 Unspecified asthma, uncomplicated; E78.5 Hyperlipidemia, unspecified; I78.1 Nevus, non-neoplastic; R73.03 Prediabetes; F20.9 Schizophrenia, unspecified; F32.A Depression, unspecified; M54.10 Radiculopathy, site unspecified; M25.78 Osteophyte, vertebrae; F41.9 Anxiety disorder, unspecified; Z85.819 Personal history of malignant neoplasm of unspecified site of lip, oral cavity, and pharynx; Z85.3 Personal history of malignant neoplasm of breast; Z90.710 Acquired absence of both cervix and uterus; Z80.0 Family history of malignant neoplasm of digestive organs; Z79.899 Other long term (current) drug therapy
CPT/HCPCS: 96376; 96374; 94640 ×2; 86900; 86901; 86850; 72100; 63047; 63030; G0378 ×2; C1762 ×2; J2250; J3370; J0330; J1580; J2710; J2765; J0690 ×2; J2405; J3010; J1170 ×5; J2704; J2001

== ENCOUNTER → 2022-11-29 | Outpatient (CLI) | payer OTHER ==
--- NOTE | 2022-12-02 10:05 | MM ---
Reason for Exam: Screening (asymptomatic). Last mammogram was performed 3 year(s) and 10 month(s) ago. Patient History: Menarche at age 17. Patient has no children. Left ovary removed at age 47. Right ovary removed at age 47. Hysterectomy at age 47. Postmenopausal. Other cancer, age 40. Breast cancer, age 40. Patient used Hormonal Contraceptives for 3 years. Core Biopsy on the Right side. Lumpectomy on the Right side. 09/22/2019, Benign Core Biopsy on the right side. 06/10/2000, Excisional Biopsy on the Right side. 05/13/2000, Stereotactic Core Biopsy on the Right side. Radiation Therapy, right. Prior Study Comparison: 02/04/2019 Bilateral Screening Mammogram, [facility]. 02/23/2019 Right Diagnostic Mammogram, [facility]. 09/08/2019 Right Diagnostic Mammogram, [facility]. Tissue Density: The breast tissue is heterogeneously dense. This may lower the sensitivity of mammography. Findings: Analyzed By CAD. There is no suspicious group of microcalcifications or new suspicious mass in either breast. Overall Assessment: Benign, BI-RAD 2 Management: Screening Mammogram of both breasts in 1 year. . Patient should continue monthly self-breast exams. A clinical breast exam by your physician is recommended on an annual basis. This exam should not preclude additional follow-up of suspicious palpable abnormalities. Note on Gudelia scores and lifetime risk: 1. A Gudelia score greater than 3% is considered moderate risk. If this is the case, consider specialist referral to assess eligibility for a risk reducing agent. 2. If overall lifetime risk for the development of breast cancer is 20% or higher, the patient may qualify for future screening with alternating mammogram and breast MRI. Electronically signed and approved by: Jose Roach M.D. Radiologis
== END | disposition home or self-care (01) ==
LOC: RADMAMWWP 14:25
PROVIDERS: ATTEND Family Medicine
DX: Z12.31 Encounter for screening mammogram for malignant neoplasm of breast (principal); Z78.0 Asymptomatic menopausal state
CPT/HCPCS: 77067